=== PATIENT | female | born 1935 | race African-American/Black ===

== ENCOUNTER 2018-01-14 12:31 | Inpatient (IN) | payer OTHER, MEDICARE ==
[~2018-01-14] VITALS: Ht 149.9 cm; Wt 43.0 kg
[~2018-01-14 12:31] MED LIST: APIX5TAB PO; COMMODE 3-IN-11 MIS; FURO20TA PO; LEVA750T PO; LOSA50TA PO; OXYC-392 PO; PANT40TA3 PO; PRED20 PO; SPIR25TA PO; WALKER WHEELS/F1 MIS
[2018-01-14 12:40] VITALS: BP 123/58; PULSE 106; RESP 16; TEMP 100; O2SAT 99
[2018-01-14] MEDS ORDERED: FURO20TA PO (14:02)
[2018-01-14] MEDS ORDERED: SPIR25TA PO (14:02)
[2018-01-14] MEDS ORDERED: PRAD150C PO (14:02)
[2018-01-14] MEDS ORDERED: SULF500T3 PO (14:02)
[2018-01-14] MEDS ORDERED: PRED10 PO (14:02)
[2018-01-14] MEDS ORDERED: MYCO500T PO (14:02)
[2018-01-14] MEDS ORDERED: PANT40TA3 PO (14:10)
[2018-01-14 14:28] LABS: AUTOMATED NEUTROPHIL # 5.5 TH/MM3 (1.8-7.7); BASOPHIL % 0.7 % (0.0-2.0); HEMATOCRIT 29.4 % (35.0-46.0); LYMPH % 3.3 % (9.0-44.0); LYMPHOCYTE # 0.2 TH/MM3 (1.0-4.8); MEAN CELL VOLUME 77.2 FL (80.0-100.0); MEAN CORPUSCULAR HEMOGLOBIN 23.7 PG (27.0-34.0); MEAN CORPUSCULAR HGB CONC 30.7 % (32.0-36.0); MEAN PLATELET VOLUME 6.7 FL (7.0-11.0); MONO % 10.4 % (0.0-8.0); MONOCYTE # 0.7 TH/MM3 (0-0.9); NEUT % 85.6 % (16.0-70.0); PLATELET COUNT 488 TH/MM3 (150-450); RED BLOOD COUNT 3.81 MIL/MM3 (4.00-5.30); RED CELL DISTRIBUTION WIDTH 20.1 % (11.6-17.2); WHITE BLOOD COUNT 6.4 TH/MM3 (4.0-11.0)
[2018-01-14 14:42] LABS: ALKALINE PHOSPHATASE 59 U/L (45-117); ALT (GPT) 12 U/L (10-53); TOTAL BILIRUBIN ADULT 0.3 MG/DL (0.2-1.0); TOTAL PROTEIN 6.8 GM/DL (6.4-8.2)
[2018-01-14 14:55] LABS: AST (GOT) 14 U/L (15-37); BICARBONATE 23.7 MEQ/L (21.0-32.0); BLOOD UREA NITROGEN 15 MG/DL (7-18); CHLORIDE 104 MEQ/L (98-107); CREATININE 0.94 MG/DL (0.50-1.00); GLOMERULAR FILTRATION RATE 69 ML/MIN (>89); GLUCOSE,RANDOM 118 MG/DL (74-106); SODIUM (NA) 139 MEQ/L (136-145)
[2018-01-14] MEDS ORDERED: SODIUM CHLOR 0.9% 1000 ML INJ 1,000 ML IV SCH (14:59)
[2018-01-14] MEDS ORDERED: MAGNESIUM HYDROXIDE SUSP 30 ML CUP PO PRN (15:00)
[2018-01-14] MEDS ORDERED: BISACODYL 10 MG SUPP RECTAL PRN (15:00)
[2018-01-14] MEDS ORDERED: NALOXONE HCL 0.4 MG/ML AMP IV PUSH PRN (15:00)
[2018-01-14] MEDS ORDERED: SODIUM CHLORIDE 0.9% FLUSH 10 ML FLUSH IV FLUSH PRN (15:00)
[2018-01-14] MEDS ORDERED: LACTULOSE SYRUP 20 GM/30 ML CUP PO PRN (15:00)
[2018-01-14] MEDS ORDERED: SENNOSIDES 8.6 MG TAB PO PRN (15:00)
[2018-01-14] MEDS ORDERED: predniSONE 20 MG TAB PO ONE (15:15)
--- NOTE | 2018-01-14 16:11 | PD.RAD ---
Post CT Procedure Prog Note Pre Procedure Diagnosis: (1) Abscess Post Procedure Diagnosis: (1) Abscess Procedure Date: Jan 14, 2018 Supervising Radiologist: Aj Geiger Estimated blood loss: minimal. Anesthesia: Local Plan of Activity Patient to Unit: Other Patient Condition: Good See PACS Report for procedural detail/treatment Drainage Procedure Procedure 1 Imaging Guidance: CT Side: Left Procedure Type: Abscess Drainage [place]: 10 Drainage: Suction Fluid Removal (CCs): 30 Fluid Description: Cloudy, Other Additional Detail: cloudy brownish fluid aspirated. Plan to ER for monitoring prior to floor. Aj Geiger MD Jan 14, 2018 16:11
[2018-01-14 16:31] VITALS: BP 121/66; PULSE 74; RESP 15; O2SAT 100
[2018-01-14] MEDS: VANCOMYCIN INJ 1,000 MG in SODIUM CHLOR 0.9% 250 ML INJ 250 ML IV SCH (16:46)
[2018-01-14] MEDS: PIPERACIL-TAZO 4.5 GM PREMIX 100 ML IV SCH ×2 (16:46→22:00)
--- NOTE | 2018-01-14 16:58 | PD ---
HPI Chief Complaint: GI Complaint Time Seen by Provider: 13:52 Travel History International Travel<30 days: No Contact w/Intl Traveler<30days: No Traveled to known affect area: No History of Present Illness HPI This is a 82-year-old female with a history of pyoderma gangrenosum, colitis, hypertension, who presents today after having a CT scan done at [place] with a reported intra-abdominal abscess. Patient's been treated by her primary care doctor for diverticulitis. He started her on antibiotics and after the course, 2 days later she started expressing pain again. He started a second course and the same thing happened. The patient was sent to [place] today to have an outpatient CT scan. The CT scan showed an abscess. Patient has a intra- abdominal and extra-abdominal connecting abscess noted. The patient does have a history of ulcerative colitis. She does see Dr. Wander Jones for this. Been running low-grade fever according to family members at the bedside. There is no vomiting or diarrhea. There is no urinary symptoms. PFSH Past Medical History Arthritis: Yes (knee) Asthma: No Blood Disorders: No Cancer: No Cardiovascular Problems: No High Cholesterol: Yes COPD: No Diminished Hearing: No Endocrine: No Genitourinary: No Immune Disorder: No Kidney Stones: No Musculoskeletal: No Neurologic: No Psychiatric: No Reproductive: No Respiratory: No Renal Failure: No Sleep Apnea: No ?: Not Past Surgical History Abdominal Surgery: No Cardiac Surgery: No Ear Surgery: No Endocrine Surgery: No Eye Surgery: No Genitourinary Surgery: No Gynecologic Surgery: No Oral Surgery: No Thoracic Surgery: No Other Surgery: Yes (r hip surgery about 10 years ago) Family History Family Hypercholesterolemia: Yes Social History Alcohol Use: No Tobacco Use: No Substance Use: No Allergies-Medications (Allergen,Severity, Reaction): Coded Allergies: No Known Allergies (Verified , 07/02/16) Reported Meds & Prescriptions Reported Meds & Active Scripts Active Reported Pantoprazole (Pantoprazole Sodium) 40 Mg Tab 40 Mg PO DAILY Furosemide 20 Mg Tab 20 Mg PO 3X WEEKLY Spironolactone 25 Mg Tab 25 Mg PO 3X WEEKLY Prednisone 10 Mg Tab 10 Mg PO DAILY Pradaxa (Dabigatran) 150 Mg Cap 150 Mg PO BID Sulfasalazine 500 Mg Tab 1,000 Mg PO BID Mycophenolate (Mycophenolate Mofetil) 500 Mg Tab 1,000 Mg PO BID Review of Systems Except as stated in HPI: all other systems reviewed are Neg General / Constitutional: Positive: Fever, No: Chills (Low-grade) HENT: No: Headaches, Neck Pain Cardiovascular: No: Chest Pain or Discomfort, Palpitations Respiratory: No: Cough, Shortness of Breath Gastrointestinal: Positive: Nausea, Abdominal Pain, No: Vomiting, Diarrhea Genitourinary: No: Frequency, Dysuria Musculoskeletal: No: Weakness, Pain Neurologic: No: Weakness, Dizziness, Headache Physical Exam Narrative GENERAL: Well-developed well-nourished female in no acute respiratory distress. SKIN: Focused skin assessment warm/dry. HEAD: Atraumatic. Normocephalic. EYES: Pupils equal and round. No scleral icterus. No injection or drainage. ENT: No nasal bleeding or discharge. Mucous membranes pink and moist. NECK: Trachea midline. Supple. CARDIOVASCULAR: Regular rate and rhythm. No murmur appreciated. RESPIRATORY: No accessory muscle use. Clear to auscultation. Breath sounds equal bilaterally. GASTROINTESTINAL: Abdomen soft, nondistended. There is tenderness in the left middle abdomen. There is no rebound or guarding. There is palpable fullness in the left middle abdomen. This is likely the extra-abdominal portion of the abscess. MUSCULOSKELETAL: No obvious deformities. No clubbing. No cyanosis. No edema. NEUROLOGICAL: Awake and alert. No obvious cranial nerve deficits. Motor grossly within normal limits. Normal speech. Data Data Last Documented VS Vital Signs Date Time Temp Pulse Resp B/P (MAP) Pulse Ox O2 Delivery O2 Flow Rate FiO2 01/14/18 16:31 74 15 121/66 (84) 100 Room Air 01/14/18 12:40 100.0 Orders Orders Complete Blood Count With Diff (01/14/18 13:03) Comprehensive Metabolic Panel (01/14/18 13:03) Urinalysis - C+S If Indicated (01/14/18 13:03) Iv Access Insert/Monitor (01/14/18 13:03) Oxygen Administration (01/14/18 13:03) Oximetry (01/14/18 13:03) Lipase (01/14/18 13:03) Blood Culture (01/14/18 13:33) Lactic Acid Sepsis Protocol (01/14/18 13:33) Ct Assisted Abscess Drain (01/14/18 ) Consult Colorectal Surgery (01/14/18 ) Piperacil-Tazo 4.5 Gm Premix (Zosyn 4.5 (01/14/18 15:00) Vancomycin Inj (Vancomycin Inj) (01/14/18 16:00) Place In Observation (01/14/18 ) Vital Signs (Adult) Q4H (01/14/18 14:59) Activity Oob With Assistance (01/14/18 14:59) Intake + Output PRINCESS.QSHIFT (01/14/18 14:59) Diet Npo (01/14/18 Dinner) Sodium Chlor 0.9% 1000 Ml Inj (Ns 1000 M (01/14/18 14:59) Sodium Chloride 0.9% Flush (Ns Flush) (01/14/18 15:00) Sodium Chloride 0.9% Flush (Ns Flush) (01/14/18 21:00) Comprehensive Metabolic Panel (01/15/18 06:00) Complete Blood Count With Diff (01/15/18 06:00) Pt Request For Service (01/14/18 14:59) Case Management Consult (01/14/18 14:59) Naloxone Inj (Narcan Inj) (01/14/18 15:00) Magnesium Hydroxide Liq (Milk Of Magnesi (01/14/18 15:00) Sennosides (Senokot) (01/14/18 15:00) Bisacodyl Supp (Dulcolax Supp) (01/14/18 15:00) Lactulose Liq (Lactulose Liq) (01/14/18 15:00) Consult Infectious Disease (01/14/18 ) Cortisol (01/14/18 15:02) Prednisone (Deltasone) (01/14/18 15:15) Prednisone (Deltasone) (01/15/18 09:00) Mycophenolate Mofetil (Cellcept) (01/14/18 21:00) Pantoprazole (Protonix) (01/15/18 09:00) Sulfasalazine (Azulfidine) (01/14/18 21:00) (Hub Use Only)Inp Phy Cons/Ref (01/14/18 ) Fentanyl Inj (Fentanyl Inj) (01/14/18 15:50) (Hub Use Only)Inp Phy Cons/Ref (01/14/18 16:05) Vital Signs (Adult) Q15MX2 (01/14/18 16:08) Notify Radiology (01/14/18 16:08) Notify Parameters (01/14/18 16:08) Vital Signs (Adult) Q15MX2,Q30MX2 (01/14/18 16:08) Intake + Output PRINCESS.QSHIFT (01/14/18 16:08) Notify Radiology (01/14/18 16:08) Wound Culture And Gram Stain (01/14/18 16:11) Admit Order (Ed Use Only) (01/14/18 16:42) Labs Laboratory Tests Test 01/14/18 14:00 White Blood Count 6.4 TH/MM3 Red Blood Count 3.81 MIL/MM3 Hemoglobin 9.0 GM/DL Hematocrit 29.4 % Mean Corpuscular Volume 77.2 FL Mean Corpuscular Hemoglobin 23.7 PG Mean Corpuscular Hemoglobin Concent 30.7 % Red Cell Distribution Width 20.1 % Platelet Count 488 TH/MM3 Mean Platelet Volume 6.7 FL Neutrophils (%) (Auto) 85.6 % Lymphocytes (%) (Auto) 3.3 % Monocytes (%) (Auto) 10.4 % Eosinophils (%) (Auto) 0.0 % Basophils (%) (Auto) 0.7 % Neutrophils # (Auto) 5.5 TH/MM3 Lymphocytes # (Auto) 0.2 TH/MM3 Monocytes # (Auto) 0.7 TH/MM3 Eosinophils # (Auto) 0.0 TH/MM3 Basophils # (Auto) 0.0 TH/MM3 CBC Comment DIFF FINAL Differential Comment Blood Urea Nitrogen 15 MG/DL Creatinine 0.94 MG/DL Random Glucose 118 MG/DL Total Protein 6.8 GM/DL Albumin 3.0 GM/DL Calcium Level 9.0 MG/DL Alkaline Phosphatase 59 U/L Aspartate Amino Transf (AST/SGOT) 14 U/L Alanine Aminotransferase (ALT/SGPT) 12 U/L Total Bilirubin 0.3 MG/DL Sodium Level 139 MEQ/L Potassium Level 3.7 MEQ/L Chloride Level 104 MEQ/L Carbon Dioxide Level 23.7 MEQ/L Anion Gap 11 MEQ/L Estimat Glomerular Filtration Rate 69 ML/MIN Lactic Acid Level 1.8 mmol/L Lipase 171 U/L MDM Medical Decision Making Medical Screen Exam Complete: Yes Emergency Medical Condition: Yes Differential Diagnosis Enteric extra-abdominal abscess/fistula versus diverticular abscess versus Crohn 's exacerbation. Narrative Course 82-year-old female with history Crohn's disease, pyoderma gangrenosum, who presents after having an outpatient CT that showed an intra-abdominal abscess. Patient actually has a communicating abscess from the intra-abdominal to extra- abdominal abdominal wall. Patient has been treated twice with outpatient antibiotic course however has had worsening pain shortly after each course. The abscess has been drained by interventional radiology. The patient will be admitted for IV antibiotics and fluids. Case was discussed with Dr. Sharath Bright, [facility], who will admit the patient to his service. Dr. Wander Harrell, patient's colorectal surgeon, has also been consulted and will see the patient in consultation. Diagnosis Primary Impression: Intra-abdominal abscess Additional Impressions: Pyoderma gangrenosum Hypertension Admitting Information Admitting Physician Requests: Admit Faisal Sánchez MD Jan 14, 2018 16:58
[2018-01-14 18:00] VITALS: BP 116/62; PULSE 68; RESP 17; O2SAT 100
--- NOTE | 2018-01-14 18:44 | HHI.HP ---
[facility] Genet Mcgraw MD Admission Diagnosis enteric -superficial abscess, colititis Diagnoses: Chief Complaint: Left lower quadrant pain Travel History International Travel<30 Days: No Contact w/Intl Traveler <30 Da: No Traveled to Known Affected Are: No History of Present Illness 82-year-old female with a history of pyoderma gangrenosum, ulcerative colitis who presents with a 24 day history of worsening intermittent sharp nonradiating left lower quadrant pain. Patient has been treated with 2 separate 10 day courses of ciprofloxacin with initial improvement however subsequent worsening. Patient experienced nausea yesterday without vomiting. She says she has not felt feverish, however has low-grade temperature upon presentation. Imaging performed today shows left lower quadrant subcutaneous and intra-abdominal abscess. Patient is currently status post IR drainage with drain the left lower quadrant subcutaneous abscess. Patient follows with Dr. Harrell as outpatient for ulcerative colitis. Review of Systems Except as stated in HPI: all other systems reviewed are Neg Past Family Social History Past Medical History Deep vein thrombosis Pyoderma gangrenosum status post healed ulcer of left leg Diverticulitis Ulcerative colitis Venous insufficiency Past Surgical History Ganglion cyst dorsum of right hand. Right hip replacement 2007 Colonoscopy in 2016 Reported Medications Reported Meds & Active Scripts Active Reported Pantoprazole (Pantoprazole Sodium) 40 Mg Tab 40 Mg PO DAILY Furosemide 20 Mg Tab 20 Mg PO 3X WEEKLY Spironolactone 25 Mg Tab 25 Mg PO 3X WEEKLY Prednisone 10 Mg Tab 10 Mg PO DAILY Pradaxa (Dabigatran) 150 Mg Cap 150 Mg PO BID Sulfasalazine 500 Mg Tab 1,000 Mg PO BID Mycophenolate (Mycophenolate Mofetil) 500 Mg Tab 1,000 Mg PO BID Allergies: Coded Allergies: No Known Allergies (Verified , 07/02/16) Family History Brother age 60 secondary to liver disease. Sister of breast cancer. Father secondary to CVA. Mother at age 99. Social History Non-smoker. Patient drinks about 2 drinks per day. Denies any issues with alcohol abuse. Denies any history of withdrawal. Denies any illicit drugs. Physical Exam Vital Signs Vital Signs Date Time Temp Pulse Resp B/P (MAP) Pulse Ox O2 Delivery O2 Flow Rate FiO2 01/14/18 18:00 68 17 116/62 (80) 100 01/14/18 16:31 74 15 121/66 (84) 100 Room Air 01/14/18 12:40 100.0 106 16 123/58 (79) 99 Physical Exam GENERAL: This is a well-nourished, well-developed patient, in no apparent distress. Alert and oriented 3 SKIN: No rashes, ecchymoses or lesions. Cool and dry. HEAD: Atraumatic. Normocephalic. No temporal or scalp tenderness. EYES: Pupils equal round and reactive. Extraocular motions intact. No scleral icterus. No injection or drainage. ENT: Nose without bleeding, purulent drainage or septal hematoma. Throat without erythema, tonsillar hypertrophy or exudate. Uvula midline. Airway patent. NECK: Trachea midline. No JVD or lymphadenopathy. Supple, nontender, no meningeal signs. CARDIOVASCULAR: Regular rate and rhythm without murmurs, gallops, or rubs. RESPIRATORY: Clear to auscultation. Breath sounds equal bilaterally. No wheezes , rales, or rhonchi. GASTROINTESTINAL: Abdomen soft, non-tender, nondistended. Left lower quadrant with drain in place. Otherwise no hepato-splenomegaly, or palpable masses. No guarding. MUSCULOSKELETAL: Extremities without clubbing, cyanosis, or edema. No joint tenderness, effusion, or edema noted. Bilateral socks are on, translucent, no broken skin. No calf tenderness. Negative Homans sign bilaterally. NEUROLOGICAL: Awake and alert. Cranial nerves II through XII intact. Motor and sensory grossly within normal limits. Five out of 5 muscle strength in all muscle groups. Normal speech. Laboratory Laboratory Tests Test 01/14/18 14:00 01/14/18 18:03 White Blood Count 6.4 Red Blood Count 3.81 Hemoglobin 9.0 Hematocrit 29.4 Mean Corpuscular Volume 77.2 Mean Corpuscular Hemoglobin 23.7 Mean Corpuscular Hemoglobin Concent 30.7 Red Cell Distribution Width 20.1 Platelet Count 488 Mean Platelet Volume 6.7 Neutrophils (%) (Auto) 85.6 Lymphocytes (%) (Auto) 3.3 Monocytes (%) (Auto) 10.4 Eosinophils (%) (Auto) 0.0 Basophils (%) (Auto) 0.7 Neutrophils # (Auto) 5.5 Lymphocytes # (Auto) 0.2 Monocytes # (Auto) 0.7 Eosinophils # (Auto) 0.0 Basophils # (Auto) 0.0 CBC Comment DIFF FINAL Differential Comment Blood Urea Nitrogen 15 Creatinine 0.94 Random Glucose 118 Total Protein 6.8 Albumin 3.0 Calcium Level 9.0 Alkaline Phosphatase 59 Aspartate Amino Transf (AST/SGOT) 14 Alanine Aminotransferase (ALT/SGPT) 12 Total Bilirubin 0.3 Sodium Level 139 Potassium Level 3.7 Chloride Level 104 Carbon Dioxide Level 23.7 Anion Gap 11 Estimat Glomerular Filtration Rate 69 Lactic Acid Level 1.8 Lipase 171 Date/Time Source Procedure Growth Status 01/14/18 14:00 Blood Peripheral Aerobic Blood Culture Pending Received 01/14/18 14:00 Blood Peripheral Anaerobic Blood Culture Pending Received 01/14/18 16:00 Wound Other Gram Stain Pending Received 01/14/18 16:00 Wound Other Wound Culture Pending Received Result Diagram: 01/14/18 1400 01/14/18 1400 Caprinskylar VTE Risk Assessment Caprini VTE Risk Assessment: Mod/High Risk (score >= 2) Caprini Risk Assessment Model Point Value = 1 Point Value = 2 Point Value = 3 Point Value = 5 Age 41-60 Minor surgery BMI > 25 kg/m2 Swollen legs Varicose veins or History of unexplained or recurrent spontaneous Oral contraceptives or hormone replacement Sepsis (< 1 month) Serious lung disease, including pneumonia (< 1 month) Abnormal pulmonary function Acute myocardial infarction Congestive heart failure (< 1 month) History of inflammatory bowel disease Medical patient at bed rest Age 61-74 Arthroscopic surgery Major open surgery (> 45 min) Laparoscopic surgery (> 45 min) Malignancy Confined to bed (> 72 hours) Immobilizing plaster cast Central venous access Age >= 75 History of VTE Family history of VTE Factor V Leiden Prothrombin [id number] Lupus anticoagulant Anticardiolipin antibodies Elevated serum homocysteine Heparin-induced thrombocytopenia Other congenital or acquired thrombophilia Stroke (< 1 month) Elective arthroplasty Hip, pelvis, or leg fracture Acute spinal cord injury (< 1 month) Prophylaxis Regimen Total Risk Factor Score Risk Level Prophylaxis Regimen 0-1 Low Early ambulation 2 Moderate Order ONE of the following: *Sequential Compression Device (SCD) *Heparin 5000 units SQ BID 3-4 Higher Order ONE of the following medications: *Heparin 5000 units SQ TID *Enoxaparin/Lovenox 40 mg SQ daily (WT < 150 kg, CrCl > 30 mL/min) *Enoxaparin/Lovenox 30 mg SQ daily (WT < 150 kg, CrCl > 10-29 mL/min) *Enoxaparin/Lovenox 30 mg SQ BID (WT < 150 kg, CrCl > 30 mL/min) AND/OR *Sequential Compression Device (SCD) 5 or more Highest Order ONE of the following medications: *Heparin 5000 units SQ TID (Preferred with Epidurals) *Enoxaparin/Lovenox 40 mg SQ daily (WT < 150 kg, CrCl > 30 mL/min) *Enoxaparin/Lovenox 30 mg SQ daily (WT < 150 kg, CrCl > 10-29 mL/min) *Enoxaparin/Lovenox 30 mg SQ BID (WT < 150 kg, CrCl > 30 mL/min) AND *Sequential Compression Device (SCD) Assessment and Plan Assessment and Plan //Left lower quadrant abscess, both intra-abdominal and subcutaneous //Suspected sepsis = Temperature of 100.0, heart rate 106, left lower quadrant abscess. = Outside imaging requested to be uploaded to system = IR drainage on admission. Cultures pending. Broad-spectrum antibiotics appreciate IR assistance. Colorectal surgery consult pending. Appreciate assistance. //History of ulcerative colitis //History of pyoderma gangrenosum -Patient follows with Dr. Harrell for UC, Dr. Hooker for pyoderma gangrenosum. Continue sulfasalazine. ESR is pending. Continue mycophenolate mofetil for now. //History of venous insufficiency. Echocardiogram 2015 with normal ejection fraction. Patient is on Spironolactone and Lasix several times weekly at home. We will hold off on diuretics and monitor. //History of DVT. On Pradaxa. = Follows with Dr. Mcadams as outpatient. Consider consult if necessary = Hold Pradaxa = We will start on heparin drip due to need for possible procedure. //Chronic anemia. Likely secondary to chronic inflammation. Hemoglobin 9.0. No signs of bleeding. Continue to monitor. //Suspected adrenal insufficiency due to chronic steroid use. Will start on prednisone 20 mg daily. Discussed Condition With Patient, nurse, ED physician, both daughters at bedside Physician Certification 2 Midnight Certification Type: Admission for Inpatient Services Order for Inpatient Services The services are ordered in accordance with Medicare regulations or non- Medicare payer requirements, as applicable. In the case of services not specified as inpatient-only, they are appropriately provided as inpatient services in accordance with the 2-midnight benchmark. Estimated LOS (days): 3 days is the estimated time the patient will need to remain in the hospital, assuming treatment plan goals are met and no additional complications. Post-Hospital Plan: Not yet determined Sharath Bright MD Jan 14, 2018 18:44
[2018-01-14 20:29] VITALS: BP 119/67; PULSE 72; RESP 16; TEMP 99; O2SAT 100
[2018-01-14 20:41] LABS: HEMATOCRIT 29.7 % (35.0-46.0); MEAN CELL VOLUME 77.4 FL (80.0-100.0); MEAN CORPUSCULAR HEMOGLOBIN 23.4 PG (27.0-34.0); MEAN CORPUSCULAR HGB CONC 30.3 % (32.0-36.0); MEAN PLATELET VOLUME 6.7 FL (7.0-11.0); PLATELET COUNT 450 TH/MM3 (150-450); RED BLOOD COUNT 3.84 MIL/MM3 (4.00-5.30); RED CELL DISTRIBUTION WIDTH 19.9 % (11.6-17.2); WHITE BLOOD COUNT 6.3 TH/MM3 (4.0-11.0)
[2018-01-14] MEDS: SODIUM CHLORIDE 0.9% FLUSH 10 ML FLUSH IV FLUSH SCH (21:00)
[2018-01-14] MEDS: sulfaSALAzine 500 MG TAB PO SCH (22:00)
[2018-01-14] MEDS: MYCOPHENOLATE MOFETIL 500 MG TAB PO SCH (22:01)
[2018-01-14 22:59] LABS: INTERNATIONAL NORMALIZED RATIO 1.1 RATIO; PROTHROMBIN TIME - PATIENT 10.8 SEC (9.8-11.6)
[2018-01-14] MEDS: HEPARIN-D5W 25,000 U/250 ML 250 ML IV PRN (23:27)
[2018-01-15 00:13] VITALS: BP 113/58; PULSE 72; RESP 18; TEMP 97.5; O2SAT 99
[2018-01-15] MEDS: PIPERACIL-TAZO 4.5 GM PREMIX 100 ML IV SCH (03:00)
[2018-01-15] MEDS: VANCOMYCIN INJ 1,000 MG in SODIUM CHLOR 0.9% 250 ML INJ 250 ML IV SCH ×2 (03:04→16:34)
[2018-01-15 03:46] LABS: AMORPHOUS SEDIMENT, URINE RARE; BILIRUBIN, URINE NEG (NEG); BLOOD, URINE NEG (NEG); GLUCOSE,URINE NEG (NEG); KETONE, URINE TRACE mg/dL (NEG); NITRITE,URINE NEG (NEG); RENAL EPITHELIAL CELLS <1 /hpf; SQUAMOUS EPITHELIAL CELL URINE 5 /hpf (0-5); TRANSITIONAL EPI CELLS, URINE <1 /hpf; URINE COLOR YELLOW (YELLW/STRAW); URINE LEUKOCYTE ESTERASE NEG (NEG)
[2018-01-15 05:47] LABS: AUTOMATED NEUTROPHIL # 3.1 TH/MM3 (1.8-7.7); BASOPHIL % 0.5 % (0.0-2.0); EOSINOPHIL % 0.1 % (0.0-4.0); HEMATOCRIT 29.2 % (35.0-46.0); LYMPH % 19.6 % (9.0-44.0); LYMPHOCYTE # 0.9 TH/MM3 (1.0-4.8); MEAN CELL VOLUME 77.7 FL (80.0-100.0); MEAN CORPUSCULAR HEMOGLOBIN 23.9 PG (27.0-34.0); MEAN CORPUSCULAR HGB CONC 30.7 % (32.0-36.0); MEAN PLATELET VOLUME 6.9 FL (7.0-11.0); MONO % 14.7 % (0.0-8.0); MONOCYTE # 0.7 TH/MM3 (0-0.9); NEUT % 65.1 % (16.0-70.0); PLATELET COUNT 429 TH/MM3 (150-450); RED BLOOD COUNT 3.76 MIL/MM3 (4.00-5.30); WHITE BLOOD COUNT 4.7 TH/MM3 (4.0-11.0)
[2018-01-15 05:55] LABS: ALBUMIN 2.5 GM/DL (3.4-5.0); AST (GOT) 9 U/L (15-37); BICARBONATE 23.5 MEQ/L (21.0-32.0); BLOOD UREA NITROGEN 16 MG/DL (7-18); CALCIUM 8.9 MG/DL (8.5-10.1); CHLORIDE 104 MEQ/L (98-107); CREATININE 1.08 MG/DL (0.50-1.00); GLOMERULAR FILTRATION RATE 59 ML/MIN (>89); GLUCOSE,RANDOM 94 MG/DL (74-106); SODIUM (NA) 139 MEQ/L (136-145)
[2018-01-15 06:01] LABS: ALKALINE PHOSPHATASE 58 U/L (45-117); ALT (GPT) 10 U/L (10-53); TOTAL BILIRUBIN ADULT 0.2 MG/DL (0.2-1.0); TOTAL PROTEIN 6.3 GM/DL (6.4-8.2)
[2018-01-15 08:00] VITALS: BP 145/65; PULSE 74; RESP 18; TEMP 98.5; O2SAT 100
[2018-01-15] MEDS: SODIUM CHLORIDE 0.9% FLUSH 10 ML FLUSH IV FLUSH SCH ×2 (09:00→21:00)
[2018-01-15] MEDS: MYCOPHENOLATE MOFETIL 500 MG TAB PO SCH ×2 (09:23→21:20)
[2018-01-15] MEDS: sulfaSALAzine 500 MG TAB PO SCH ×2 (09:23→21:19)
[2018-01-15] MEDS: PANTOPRAZOLE SOD 40 MG DELAYED RELEASE TAB PO SCH (09:24)
[2018-01-15] MEDS: predniSONE 20 MG TAB PO SCH (09:24)
[2018-01-15] MEDS: ACETAMINOPHEN 325 MG TAB PO PRN ×3 (09:24→18:13)
[2018-01-15] MEDS: PIPERACIL-TAZO 2.25 GM PREMIX 50 ML IV SCH ×3 (09:32→21:20)
--- NOTE | 2018-01-15 09:43 | MB ---
cc: Aj Harrell MD, Sharath Bright MD DATE: 01/15/2018 CHIEF COMPLAINT: Left lower quadrant abdominal and subcutaneous abscess. 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 She has had bouts of pyoderma gangrenosum treated by Dr. Hooker in the past. Her legs are cleared at this point. She has not seen me for a couple of years. She has been on Azulfidine and has been in relatively good health until a couple weeks ago, she developed left lower quadrant pain. She went to Dr. Mcgraw, who gave her some Cipro 500 mg p.o. b.i.d. for about a week or so, and then she felt good for a time and then several days later, he put her on another round of Cipro. She began having more in the way of abdominal pain. After that, he got a CT scan on her yesterday at [place] showing what appeared to be an intra-abdominal and abdominal abscess. It is not certain whether this is connecting to the colon or this is indeed diverticulitis or flare-up of her ulcerative colitis or if she has a colocutaneous fistula forming. Nevertheless, she underwent subcutaneous drainage last evening, but because of her anticoagulation, they did not do abdominal drainage. Her anticoagulation was stopped and she was placed on a heparin drip in anticipation of further drainage. PAST MEDICAL HISTORY: As above. FAMILY HISTORY: As above. SOCIAL HISTORY: As above. REVIEW OF SYSTEMS: As above. PHYSICAL EXAMINATION: GENERAL: A well-developed, thin female in no acute distress. SKIN: Warm and dry. HEENT: Extraocular muscles intact. NECK: Supple. ABDOMEN: Soft, mildly tender in the left lower quadrant. She has a drain in the left lower quadrant and there is some brownish drainage coming from that drain, but not a very large amount. It does not appear to be stool. RECTAL: Exam was not done. EXTREMITIES: Range of motion within normal limits. NEUROLOGIC: Grossly normal. SKIN: She does not have any evidence of pyoderma gangrenosum on her legs. IMPRESSION: Intra-abdominal and subcutaneous abscess. PLAN: Further drainage of this abscess with followup CT on Wednesday. I will continue to follow along with you. At this point, I would continue her present therapy with antibiotics and drainage. MD CORI Ziegler/BELINDA , 08:57 AM , 09:42 AM
--- NOTE | 2018-01-15 10:29 | HHI.PR ---
Subjective Remarks Patient seen and examined this morning, their vitals are stable and the patient is afebrile. Reports she feels well. Still with some intermittent lower abdominal pain. She is tolerating her soft diet without any issues. She denies nausea or vomiting. Daughter is at bedside. Objective Vital Signs Date Time Temp Pulse Resp B/P (MAP) Pulse Ox O2 Delivery O2 Flow Rate FiO2 01/15/18 08:00 98.5 74 18 145/65 (91) 100 01/15/18 00:13 97.5 72 18 113/58 (76) 99 01/14/18 20:29 99.0 72 16 119/67 (84) 100 01/14/18 18:34 01/14/18 18:00 68 17 116/62 (80) 100 01/14/18 16:31 74 15 121/66 (84) 100 Room Air 01/14/18 12:40 100.0 106 16 123/58 (79) 99 I/O 01/14/18 01/14/18 01/14/18 01/15/18 01/15/18 01/15/18 07:00 15:00 23:00 07:00 15:00 23:00 Intake Total 480 ml Output Total 100 ml 45 ml Balance -100 ml 435 ml Intake Oral 480 ml Output Urine Total 100 ml Drainage Total 45 ml # Voids 2 Result Diagram: 01/15/1843301/15/18 043 Objective Remarks GENERAL: Well-appearing, no acute distress, sitting up in chair SKIN: Warm and dry. HEAD: Normocephalic. EYES: No scleral icterus. No injection or drainage. NECK: Supple, trachea midline. No JVD or lymphadenopathy. CARDIOVASCULAR: Regular rate and rhythm without murmurs, gallops, or rubs. RESPIRATORY: Breath sounds equal bilaterally. No accessory muscle use. GASTROINTESTINAL: Abdomen soft, nondistended. Left lower quadrant drain in place. There is tenderness to palpation of left lower quadrant, but overall abdominal exam is improved from previous. MUSCULOSKELETAL: No cyanosis, or edema. A/P Problem List: (1) Hypertension ICD Code: I10 - Essential (primary) hypertension Status: Chronic (2) Pyoderma gangrenosum ICD Code: L88 - Pyoderma gangrenosum Status: Chronic (3) Intra-abdominal abscess ICD Code: K65.1 - Peritoneal abscess Status: Acute Assessment and Plan In summary this is an 82-year-old female patient with a history of pyoderma gangrenosum, ulcerative colitis who presented to [facility] ED with several day history of nonradiating left lower quadrant pain. The patient been recently treated with Cipro on 2 separate occasions with minimal improvement of symptoms. In the ED imaging showed left lower quadrant subcutaneous and intra- abdominal abscess. Patient underwent IR drainage with drain placement. Left lower quadrant abscess Met sepsis criteria on admission, currently no leukocytosis (patient is on steroids so immunoresponse may be blunted) she is afebrile and lactic acid is 1.8 Colorectal surgery consulted: Follow-up CT scheduled for Wednesday. Continue drain placed by interventional radiology. Continue broad-spectrum antibiotics with Zosyn and vancomycin Ulcerative colitis Pyoderma gangrenosum Continue sulfazine, continue mycophenolate History of venous insufficiency Echo in 2016 with normal EF Patient's Lasix and spironolactone are currently on hold History of DVT Is on Pradaxa as an outpatient, this was placed on hold Patient is currently on heparin drip if patient needs a potential procedure Chronic anemia No signs of bleeding at this time Hemoglobin is stable Suspected adrenal insufficiency due to chronic steroid use Continue prednisone 20 mg daily Discharge Planning Clinically improving, to be reevaluated on Wednesday after surgery. Bettina Gunn MD Jan 15, 2018 10:29
[2018-01-15 12:00] VITALS: BP 126/59; PULSE 67; RESP 19; TEMP 98.1; O2SAT 100
[2018-01-15 16:00] VITALS: BP 123/61; PULSE 72; RESP 18; TEMP 97.9; O2SAT 100
[2018-01-15 20:00] VITALS: BP 125/67; PULSE 70; RESP 18; TEMP 98; O2SAT 100
--- NOTE | 2018-01-15 21:51 | PD.ID.CON ---
History of Present Illness Service ID Consult Requested By Dr Bright Reason for Consult intraabd abscess Primary Care Physician Genet Mcgraw MD Diagnoses: History of Present Illness 82 yo female kn[place]own to me from previous hospitalisation > 1 year ago she has a h/o ulerative colitis and pyoderma gangrenosum She is immunosuppresse, on 10 mg of Prednisone and mycofenilc acid She developped LLQ painx 1 day She got o/p CT that showed LLQ abbscess, it was drained yday G stain with mixed gram-neg and gram positive arnaldo; clx P Pt had fever of 100.0 F on presentation and no leukocytosis Review of Systems Except as stated in HPI: all other systems reviewed are Neg Past Family Social History Allergies: Coded Allergies: No Known Allergies (Verified , 07/02/16) Past Medical History cerative colitis Venous insufficiency Past Surgical History Ganglion cyst dorsum of right hand. Right hip replacement 2006 Colonoscopy in 2015 Active Ordered Medications Medications where reviewed in EMR Antibiotics Include: zosyn vancomycin Family History Brother age 60 secondary to liver disease. Sister of breast cancer. Father secondary to CVA. Mother at age 99. Social History Non-smoker. Patient drinks about 2 drinks per day. Denies any issues with alcohol abuse. Denies any history of withdrawal. Denies any illicit drugs. Physical Exam Vital Signs Vital Signs Date Time Temp Pulse Resp B/P (MAP) Pulse Ox O2 Delivery O2 Flow Rate FiO2 01/15/18 21:27 20 01/15/18 20:00 98.0 70 18 125/67 (86) 100 01/15/18 16:00 97.9 72 18 123/61 (81) 100 01/15/18 12:00 98.1 67 19 126/59 (81) 100 01/15/18 08:00 98.5 74 18 145/65 (91) 100 01/15/18 00:13 97.5 72 18 113/58 (76) 99 Physical Exam CONSTITUTIONAL/GENERAL: This is a thin elderly female patient, in no apparent distress. TUBES/LINES/DRAINS: SKIN: No jaundice, rashes, or lesions. Scars intensive on BLE Ecchymoses on upper extremities. No wounds seen anteriorly. Skin temperature appropriate. Not diaphoretic. HEAD: Atraumatic. Normocephalic. EYES: Pupils equal and round and reactive. Extraocular motions intact. No scleral icterus. No injection or drainage. Fundi not examined. ENT: Hearing grossly normal. Nose without bleeding or purulent drainage. Throat without visible erythema, exudates, masses, or lesions. NECK: Trachea midline. Supple, nontender. No palpable thyroid enlargement or nodularity. CARDIOVASCULAR: Regular rate and rhythm without murmurs, gallops, or rubs. No JVD. Peripheral pulses symmetric. RESPIRATORY/CHEST: Symmetric, unlabored respirations. Clear to auscultation. Breath sounds equal bilaterally. No wheezes, rales, or rhonchi. GASTROINTESTINAL: Abdomen soft, non-tender, nondistended. No hepato-splenomegaly , or palpable masses. No guarding. Bowel sounds present. Drain in place LLQ area with purulent d/c GENITOURINARY: Without palpable bladder distension. MUSCULOSKELETAL: Extremities without clubbing, cyanosis, or edema. No joint tenderness or effusion noted. No calf tenderness. No mottling or clubbing. LYMPHATICS: No palpable cervical or supraclavicular adenopathy. NEUROLOGICAL: Awake and alert. Motor and sensory grossly within normal limits. Follows commands. Clear speech. Moves all extremities. PSYCHIATRIC: No obvious anxiety/depression. no apparent hallucinations or other psychotic thought process. Laboratory Laboratory Tests Test 01/14/18 22:00 01/15/18 03:13 01/15/18 04:34 01/15/18 11:44 Prothrombin Time 10.8 Prothromb Time International Ratio 1.1 Activated Partial Thromboplast Time 29.2 29.2 25.5 Urine Color YELLOW Urine Turbidity HAZY Urine pH 6.0 Urine Specific [place] GREATER THAN 1.050 Urine Protein 30 Urine Glucose (UA) NEG Urine Ketones TRACE Urine Occult Blood NEG Urine Nitrite NEG Urine Bilirubin NEG Urine Urobilinogen LESS THAN 2.0 Urine Leukocyte Esterase NEG Urine RBC 1 Urine WBC 1 Urine Squamous Epithelial Cells 5 Urine Transitional Epithelial Cells <1 Urine Renal Epithelial Cells <1 Urine Amorphous Sediment RARE Microscopic Urinalysis Comment CULT NOT INDICATED White Blood Count 4.7 Red Blood Count 3.76 Hemoglobin 9.0 Hematocrit 29.2 Mean Corpuscular Volume 77.7 Mean Corpuscular Hemoglobin 23.9 Mean Corpuscular Hemoglobin Concent 30.7 Red Cell Distribution Width 20.0 Platelet Count 429 Mean Platelet Volume 6.9 Neutrophils (%) (Auto) 65.1 Lymphocytes (%) (Auto) 19.6 Monocytes (%) (Auto) 14.7 Eosinophils (%) (Auto) 0.1 Basophils (%) (Auto) 0.5 Neutrophils # (Auto) 3.1 Lymphocytes # (Auto) 0.9 Monocytes # (Auto) 0.7 Eosinophils # (Auto) 0.0 Basophils # (Auto) 0.0 CBC Comment DIFF FINAL Differential Comment Blood Urea Nitrogen 16 Creatinine 1.08 Random Glucose 94 Total Protein 6.3 Albumin 2.5 Calcium Level 8.9 Alkaline Phosphatase 58 Aspartate Amino Transf (AST/SGOT) 9 Alanine Aminotransferase (ALT/SGPT) 10 Total Bilirubin 0.2 Sodium Level 139 Potassium Level 3.6 Chloride Level 104 Carbon Dioxide Level 23.5 Anion Gap 12 Estimat Glomerular Filtration Rate 59 Test 01/15/18 17:51 Activated Partial Thromboplast Time 33.8 Date/Time Source Procedure Growth Status 01/14/18 14:00 Blood Peripheral Aerobic Blood Culture - Preliminary NO GROWTH IN 1 DAY Resulted 01/14/18 14:00 Blood Peripheral Anaerobic Blood Culture - Preliminary NO GROWTH IN 1 DAY Resulted 01/15/18 11:00 Stool Stool Stool Occult Blood (MAGALIE) - Final HEMOCCULT POSITIVE Complete 01/14/18 16:00 Wound Other Gram Stain - Final Resulted 01/14/18 16:00 Wound Other Wound Culture - Preliminary Resulted Result Diagram: 01/15/184 01/15/18433 Assessment and Plan Assessment and Plan Intraabdominal abscess, sp IR drainage Ulcerative colitis cont broad spectrum abx will follow clx Justa Zavaleta MD Jan 15, 2018 21:51
[2018-01-16] VITALS: BP 153/73; PULSE 65; RESP 18; TEMP 97.5; O2SAT 100
[2018-01-16] MEDS: HEPARIN-D5W 25,000 U/250 ML 250 ML IV PRN (02:17)
[2018-01-16] MEDS: PIPERACIL-TAZO 2.25 GM PREMIX 50 ML IV SCH ×4 (02:22→20:30)
[2018-01-16] MEDS: ACETAMINOPHEN 325 MG TAB PO PRN ×3 (02:28→20:34)
[2018-01-16] MEDS: VANCOMYCIN INJ 1,000 MG in SODIUM CHLOR 0.9% 250 ML INJ 250 ML IV SCH (04:47)
--- NOTE | 2018-01-16 07:49 | HHI.PR ---
Subjective Remarks Patient seen and examined this morning, their vitals are stable and the patient is afebrile. Reports diarrhea twice this am. Denies CP or SOB. Wants to get up and walk. Objective Vital Signs Date Time Temp Pulse Resp B/P (MAP) Pulse Ox O2 Delivery O2 Flow Rate FiO2 01/16/18 04:36 20 01/16/18 00:00 97.5 65 18 153/73 (99) 100 01/15/18 20:00 98.0 70 18 125/67 (86) 100 01/15/18 16:00 97.9 72 18 123/61 (81) 100 01/15/18 12:00 98.1 67 19 126/59 (81) 100 01/15/18 08:00 98.5 74 18 145/65 (91) 100 I/O 01/15/18 01/15/18 01/15/18 01/16/18 01/16/18 01/16/18 07:00 15:00 23:00 07:00 15:00 23:00 Intake Total 480 ml 1280 ml 240 ml Output Total 45 ml 170 ml 90 ml Balance 435 ml 1110 ml 150 ml Intake Oral 480 ml 980 ml 240 ml IV Total 300 ml Stool Total 100 ml Drainage Total 45 ml 70 ml 90 ml # Voids 2 4 2 # Bowel Movements 0 Result Diagram: 01/15/18 0434 01/15/18 0434 Objective Remarks GENERAL: Well-appearing, no acute distress, sitting up in chair SKIN: Warm and dry. HEAD: Normocephalic. EYES: No scleral icterus. No injection or drainage. NECK: Supple, trachea midline. No JVD or lymphadenopathy. CARDIOVASCULAR: Regular rate and rhythm without murmurs, gallops, or rubs. RESPIRATORY: Breath sounds equal bilaterally. No accessory muscle use. GASTROINTESTINAL: Abdomen soft, nondistended. Left lower quadrant drain in place, serosanguineous fluid is present. There is tenderness to palpation of left lower quadrant, but overall abdominal exam is improved from previous. MUSCULOSKELETAL: No cyanosis, or edema. A/P Problem List: (1) Hypertension ICD Code: I10 - Essential (primary) hypertension Status: Chronic (2) Pyoderma gangrenosum ICD Code: L88 - Pyoderma gangrenosum Status: Chronic (3) Intra-abdominal abscess ICD Code: K65.1 - Peritoneal abscess Status: Acute Assessment and Plan In summary this is an 82-year-old female patient with a history of pyoderma gangrenosum, ulcerative colitis who presented to [place] ED with several day history of nonradiating left lower quadrant pain. The patient been recently treated with Cipro on 2 separate occasions with minimal improvement of symptoms. In the ED imaging showed left lower quadrant subcutaneous and intra- abdominal abscess. Patient underwent IR drainage with drain placement. Left lower quadrant abscess Met sepsis criteria on admission, currently no leukocytosis (patient is on steroids so immunoresponse may be blunted) she is afebrile and lactic acid is 1.8 Colorectal surgery consulted: Follow-up CT scheduled for Wednesday. Continue drain placed by interventional radiology. Continue broad-spectrum antibiotics with Zosyn and vancomycin Consult pharmacy to for vanco through Add lactobacillus for diarrhea Ulcerative colitis Pyoderma gangrenosum Continue sulfazine, continue mycophenolate History of venous insufficiency Echo in 2015 with normal EF Patient's Lasix and spironolactone are currently on hold History of DVT Is on Pradaxa as an outpatient, this was placed on hold Patient is currently on heparin drip if patient needs a potential procedure Chronic anemia No signs of bleeding at this time Hemoglobin is stable Suspected adrenal insufficiency due to chronic steroid use Continue prednisone 20 mg daily DVT prophy: bilat scd GI prophy: protonix 40 mg daily Discharge Planning Clinically improving, to be reevaluated on Wednesday by general surgery. Bettina Gunn MD Jan 16, 2018 07:49
[2018-01-16] MEDS ORDERED: Vancomycin Consult Pharmacy 1 EA OTHER SCH (08:45)
[2018-01-16] MEDS: LACTOBACILLUS ACIDOPHILUS TAB PO SCH ×2 (08:59→20:30)
[2018-01-16] MEDS: sulfaSALAzine 500 MG TAB PO SCH ×2 (08:59→20:30)
[2018-01-16] MEDS: MYCOPHENOLATE MOFETIL 500 MG TAB PO SCH ×2 (09:00→20:30)
[2018-01-16] MEDS: SODIUM CHLORIDE 0.9% FLUSH 10 ML FLUSH IV FLUSH SCH ×2 (09:00→21:00)
[2018-01-16] MEDS: predniSONE 20 MG TAB PO SCH (09:00)
[2018-01-16] MEDS: PANTOPRAZOLE SOD 40 MG DELAYED RELEASE TAB PO SCH (09:00)
[2018-01-16 09:25] VITALS: BP 129/63; PULSE 70; RESP 18; TEMP 97.8; O2SAT 100
--- NOTE | 2018-01-16 11:49 | HHI.PR ---
Subjective Remarks Pt feels fine. Sitting in chair. Objective Vital Signs Date Time Temp Pulse Resp B/P (MAP) Pulse Ox O2 Delivery O2 Flow Rate FiO2 01/16/18 09:25 97.8 70 18 129/63 (85) 100 01/16/18 04:36 20 01/16/18 00:00 97.5 65 18 153/73 (99) 100 01/15/18 20:00 98.0 70 18 125/67 (86) 100 01/15/18 16:00 97.9 72 18 123/61 (81) 100 01/15/18 12:00 98.1 67 19 126/59 (81) 100 I/O 01/15/18 01/15/18 01/15/18 01/16/18 01/16/18 01/16/18 07:00 15:00 23:00 07:00 15:00 23:00 Intake Total 480 ml 1280 ml 240 ml Output Total 45 ml 170 ml 90 ml Balance 435 ml 1110 ml 150 ml Intake Oral 480 ml 980 ml 240 ml IV Total 300 ml Stool Total 100 ml Drainage Total 45 ml 70 ml 90 ml # Voids 2 4 2 # Bowel Movements 0 Result Diagram: 01/15/18 0434 01/15/18 0434 Other Results VS-S Abd: flat, soft. Drain LLQ draining brown liquid C/W stool. Assessment and Plan Assessment and Plan Stable . 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 ? secondary to Diverticulitis or Colitis. Plan: ? F/U CT per IR tomorrow I will eventually need to do Flex sig/Colonoscopy to evaluate colon for colitis and possible surgery if drainage does not stop Aj Harrell MD Jan 16, 2018 11:49
[2018-01-16 13:10] VITALS: BP 121/58; PULSE 65; RESP 18; TEMP 97.4; O2SAT 100
[2018-01-16 17:26] VITALS: BP 157/68; PULSE 53; RESP 17; TEMP 97.8; O2SAT 97
[2018-01-16] MEDS: VANCOMYCIN 1,000 MG/NS 250 ML IV SCH ×2 (17:59)
[2018-01-16 20:00] VITALS: BP 135/66; PULSE 76; RESP 17; TEMP 97.7; O2SAT 100
--- NOTE | 2018-01-16 23:09 | HHI.PR ---
Subjective Remarks NOT SEEN Objective Vitals Vital Signs Date Time Temp Pulse Resp B/P (MAP) Pulse Ox O2 Delivery O2 Flow Rate FiO2 01/16/18 22:03 20 01/16/18 20:00 97.7 76 17 135/66 (89) 100 01/16/18 17:26 97.8 53 17 157/68 (97) 97 01/16/18 13:10 97.4 65 18 121/58 (79) 100 01/16/18 09:25 97.8 70 18 129/63 (85) 100 01/16/18 00:00 97.5 65 18 153/73 (99) 100 I/O 01/16/18 01/16/18 01/16/18 01/17/18 01/17/18 01/17/18 07:00 15:00 23:00 07:00 15:00 23:00 Intake Total 240 ml 50 ml 1200 ml Output Total 90 ml 75 ml Balance 150 ml 50 ml 1125 ml Intake Oral 240 ml 1200 ml IV Total 50 ml Drainage Total 90 ml 75 ml # Voids 2 4 # Bowel Movements 0 3 Result Diagram: 01/15/18 0434 01/15/18 0434 Objective Remarks GENERAL: Well-appearing, no acute distress, sitting up in chair SKIN: Warm and dry. HEAD: Normocephalic. EYES: No scleral icterus. No injection or drainage. NECK: Supple, trachea midline. No JVD or lymphadenopathy. CARDIOVASCULAR: Regular rate and rhythm without murmurs, gallops, or rubs. RESPIRATORY: Breath sounds equal bilaterally. No accessory muscle use. GASTROINTESTINAL: Abdomen soft, nondistended. Left lower quadrant drain in place, serosanguineous fluid is present. There is tenderness to palpation of left lower quadrant, but overall abdominal exam is improved from previous. MUSCULOSKELETAL: No cyanosis, or edema. Procedures IR drainage with drain placement of intraabdominal abscess. A/P Problem List: (1) Intra-abdominal abscess ICD Code: K65.1 - Peritoneal abscess Status: Acute Assessment and Plan In summary this is an 82-year-old female patient with a history of pyoderma gangrenosum, ulcerative colitis who presented to [place] ED with several day history of nonradiating left lower quadrant pain. The patient been recently treated with Cipro on 2 separate occasions with minimal improvement of symptoms. In the ED imaging showed left lower quadrant subcutaneous and intra- abdominal abscess. Patient underwent IR drainage with drain placement. Left lower quadrant abscess Met sepsis criteria on admission, currently no leukocytosis (patient is on steroids so immunologic response may be blunted) she is afebrile and lactic acid is 1.8 Colorectal surgery consulted: Follow-up CT scheduled for Wednesday. Continue drain placed by interventional radiology. Continue broad-spectrum antibiotics with Zosyn and vancomycin Consult pharmacy to for vanco through Add lactobacillus for diarrhea Ulcerative colitis Pyoderma gangrenosum Continue sulfazine, continue mycophenolate History of venous insufficiency Echo in 2015 with normal EF Patient's Lasix and spironolactone are currently on hold History of DVT Is on Pradaxa as an outpatient, this was placed on hold Patient is currently on heparin drip if patient needs a potential procedure Chronic anemia No signs of bleeding at this time Hemoglobin is stable Suspected adrenal insufficiency due to chronic steroid use Continue prednisone 20 mg daily DVT prophy: bilat scd GI prophy: protonix 40 mg daily Sylvester Reyna MD Jan 16, 2018 23:09
[2018-01-17] VITALS: BP 130/67; PULSE 72; RESP 17; TEMP 97.9; O2SAT 100
[2018-01-17] MEDS: ACETAMINOPHEN 325 MG TAB PO PRN ×3 (03:16→21:57)
[2018-01-17] MEDS: PIPERACIL-TAZO 2.25 GM PREMIX 50 ML IV SCH ×2 (03:18→09:00)
[2018-01-17 03:34] LABS: AUTOMATED NEUTROPHIL # 1.9 TH/MM3 (1.8-7.7); BASOPHIL % 1.2 % (0.0-2.0); EOSINOPHIL % 0.5 % (0.0-4.0); HEMATOCRIT 23.6 % (35.0-46.0); HEMOGLOBIN 7.3 GM/DL (11.6-15.3); LYMPH % 30.4 % (9.0-44.0); LYMPHOCYTE # 1.2 TH/MM3 (1.0-4.8); MEAN CELL VOLUME 76.8 FL (80.0-100.0); MEAN CORPUSCULAR HEMOGLOBIN 23.6 PG (27.0-34.0); MEAN CORPUSCULAR HGB CONC 30.7 % (32.0-36.0); MEAN PLATELET VOLUME 6.5 FL (7.0-11.0); MONO % 18.8 % (0.0-8.0); MONOCYTE # 0.7 TH/MM3 (0-0.9); NEUT % 49.1 % (16.0-70.0); PLATELET COUNT 456 TH/MM3 (150-450); RED BLOOD COUNT 3.08 MIL/MM3 (4.00-5.30); WHITE BLOOD COUNT 3.9 TH/MM3 (4.0-11.0)
[2018-01-17 03:52] LABS: BICARBONATE 22.1 MEQ/L (21.0-32.0); CALCIUM 8.4 MG/DL (8.5-10.1); CREATININE 0.73 MG/DL (0.50-1.00)
[2018-01-17 04:04] LABS: BANDS 15 % (0-6); LYMPHOCYTES 24 % (9-44); MONOCYTES 10 % (0-8); NEUTROPHIL # MANUAL DIFF 2.5 TH/MM3 (1.8-7.7); POLYS (SEG NEUTROPHILS) 50 % (16-70)
[2018-01-17] MEDS: HEPARIN-D5W 25,000 U/250 ML 250 ML IV PRN (05:29)
[2018-01-17 08:00] VITALS: BP 148/67; PULSE 62; RESP 14; TEMP 98.1; O2SAT 100
--- NOTE | 2018-01-17 09:08 | RADRPT ---
EXAM DATE: 01/14/2018 5:01 PM EDT AGE/SEX: 82 years / Female INDICATIONS: Left sided abscess drain. CLINICAL DATA: This is the patient's initial encounter. Patient reports that signs and symptoms have been present for 1 day and indicates a pain score of 5/10. MEDICAL/SURGICAL HISTORY: None. None. COMPARISON: [facility], CT PELVIS W/O CONTRAST, 01/14/2018. . BIOPSY SITE: Left pelvic abscess MEDICATION(S): 25 mcg fentanyl (Sublimaze) IV DEVICE(S): 10 Fr Skater FLUID: Total volume of 30 cc of thick brown fluid was removed. Fluid was sent to lab for ordered studies.. Prophylactic antibiotics were administered with appropriate pre-procedure timing. . . PROCEDURE : CT guided drainage of the Left pelvic abscess. The patient has both a deep and superficial air and fluid collection in the left pelvis suspicious fo r an abscess. Based on appearance it may be related to the sigmoid colon. The patient is on anticoagu lation and has recently eaten. Secondary to these factors, we decided to drain the superficial collec tion at this time and treat the patient with antibiotics. If the deeper collection is not drained by the superficial drain the patient will be returned a next week for drainage of the deeper collection. The risks, benefits and alternatives to the procedure were explained and verbal and written consent w as obtained. Using automated exposure control and adjustment of the mA and/or kV according to patient size, radiation dose was kept as low as reasonably achievable to obtain optimal diagnostic quality i mages. The site was prepped in sterile fashion. Full sterile technique was used, including cap, ma sk, sterile gloves and gown and a large sterile sheet. Hand hygiene and 2% chlorhexidine and/or beta dine/alcohol prep was utilized per protocol for cutaneous antisepsis. The skin and subcutaneous tiss ues were infiltrated with local anesthetic solution. DICOM format image data is available electronic ally for review and comparison. Using CT guidance the superficial left lower quadrant pelvis abscess was localized. Drainage was per formed using the prescribed catheter. A total of 30 cc of thick brownish fluid was removed. Samples w ere saved and sent to microbiology for evaluation. The drain was connected to assess cord and suction device. Drain was secured to the skin with sutures and sterile dressing was applied. The patient tolerated the procedure well and there were no complications. The patient tolerated the procedure well and there were no complications. The patient was sent to post anesthesia recovery in s table condition. CONCLUSION: 1. Uncomplicated CT guided drainage of the superficial aspect of the left pelvis abscess. A total of 30 cc of infected appearing material was removed and sent for evaluation. 2. If the deeper collection does not improve or resolve following superficial drainage and antibioti c treatment, the patient will return next week for possible deep drain placement. Electronically signed by: Aj Geiger MD 01/17/2018 9:07 AM EDT
[2018-01-17] MEDS: LACTOBACILLUS ACIDOPHILUS TAB PO SCH ×2 (09:38→21:56)
[2018-01-17] MEDS: PANTOPRAZOLE SOD 40 MG DELAYED RELEASE TAB PO SCH (09:39)
[2018-01-17] MEDS: predniSONE 20 MG TAB PO SCH (09:39)
[2018-01-17] MEDS: sulfaSALAzine 500 MG TAB PO SCH ×2 (09:39→21:58)
--- NOTE | 2018-01-17 09:39 | RADRPT ---
EXAM DATE: 01/17/2018 9:09 AM EDT AGE/SEX: 82 years / Female INDICATIONS: Evaluate drain CLINICAL DATA: This is the patient's initial encounter. Patient reports that signs and symptoms have been present for 4 - 6 days and indicates a pain score of 2/10. MEDICAL/SURGICAL HISTORY: Deep venous thrombosis. None. RADIATION DOSE: 10.94 CTDI (mGy) COMPARISON: . TECHNIQUE: Multiple contiguous axial images were obtained through the pelvis without contrast. Imag es were obtained using multiple row detector helical technique. . Using automated exposure control an d adjustment of the mA and/or kV according to patient size, radiation dose was kept as low as reasona yoselin achievable to obtain optimal diagnostic quality images. FINDINGS: Percutaneous drain is seen in the left inguinal region draining a large iliopsoas abscess.. The iliop soas component has decreased substantially as well. Minimal air persist around the drain. The pelvic contents otherwise remain unremarkable. Total hip arthroplasty is present on the right. CONCLUSION: 1. Substantial improvement. Residual fluid and air remains around the drain on the left.. Electronically signed by: Ritchie Alcala MD 01/17/2018 9:38 AM EDT
[2018-01-17] MEDS: MYCOPHENOLATE MOFETIL 500 MG TAB PO SCH ×2 (09:40→21:56)
[2018-01-17] MEDS: SODIUM CHLORIDE 0.9% FLUSH 10 ML FLUSH IV FLUSH SCH ×2 (09:41→22:04)
[2018-01-17] MEDS: PIPERACIL-TAZO 4.5 GM PREMIX 100 ML IV SCH ×3 (10:00→22:02)
--- NOTE | 2018-01-17 10:25 | HHI.PR ---
Subjective Remarks Pt feels fine. Sitting in chair. Repeat CT done this AM. D/W Dr Andrea Alcala. Psoas and SQ abscesses makedly better. He will have his Radiology nurse irrigate catheter. Objective Vital Signs Date Time Temp Pulse Resp B/P (MAP) Pulse Ox O2 Delivery O2 Flow Rate FiO2 01/17/18 04:37 20 01/17/18 00:00 97.9 72 17 130/67 (88) 100 01/16/18 20:00 97.7 76 17 135/66 (89) 100 01/16/18 17:26 97.8 53 17 157/68 (97) 97 01/16/18 13:10 97.4 65 18 121/58 (79) 100 I/O 01/16/18 01/16/18 01/16/18 01/17/18 01/17/18 01/17/18 07:00 15:00 23:00 07:00 15:00 23:00 Intake Total 240 ml 50 ml 1200 ml 240 ml Output Total 90 ml 75 ml 47 ml Balance 150 ml 50 ml 1125 ml 240 ml -47 ml Intake Oral 240 ml 1200 ml 240 ml IV Total 50 ml Drainage Total 90 ml 75 ml 47 ml # Voids 2 4 2 # Bowel Movements 0 3 0 Result Diagram: 01/17/18 03001/17/18 030 Objective Remarks VS-S Abd: Benign,denies back or leg pain with psoas. Less drainage Labs: H&H decreased. May need transfusion Assessment and Plan Assessment and Plan Stable . 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 ? secondary to Diverticulitis or Colitis. Anemia. Pt denies rectal bleeding. May be somewhat dilutional. Plan: Irrigate catheter. I will eventually need to do Flex sig/Colonoscopy probably tomorrow or Wednesday to evaluate colon for colitis and possible surgery if drainage does not stop Aj Harrell MD Jan 17, 2018 10:25
[2018-01-17 12:00] VITALS: BP 122/66; PULSE 64; RESP 14; TEMP 97.9; O2SAT 100
[2018-01-17] MEDS: VANCOMYCIN 1,000 MG/NS 250 ML IV SCH ×2 (12:16)
[2018-01-17] MEDS ORDERED: POTASSIUM CHLORIDE 20 MEQ CONTROLLED RELEASE TAB PO ONE (13:30)
--- NOTE | 2018-01-17 14:45 | HHI.PR ---
Subjective Remarks Follow-up abdominal abscess. She is doing okay out of bed to chair denies dizziness, chest pain and shortness of breath. Objective Vitals Vital Signs Date Time Temp Pulse Resp B/P (MAP) Pulse Ox O2 Delivery O2 Flow Rate FiO2 01/17/18 04:37 20 01/17/18 00:00 97.9 72 17 130/67 (88) 100 01/16/18 20:00 97.7 76 17 135/66 (89) 100 01/16/18 17:26 97.8 53 17 157/68 (97) 97 I/O 01/16/18 01/16/18 01/16/18 01/17/18 01/17/18 01/17/18 07:00 15:00 23:00 07:00 15:00 23:00 Intake Total 240 ml 50 ml 1200 ml 240 ml Output Total 90 ml 75 ml 47 ml Balance 150 ml 50 ml 1125 ml 240 ml -47 ml Intake Oral 240 ml 1200 ml 240 ml IV Total 50 ml Drainage Total 90 ml 75 ml 47 ml # Voids 2 4 2 # Bowel Movements 0 3 0 Result Diagram: 01/17/18 0302 01/17/18 0302 Imaging Last Impressions Pelvis CT 01/17/18 0000 Signed Impressions: CONCLUSION: 1. Substantial improvement. Residual fluid and air remains around the drain on the left.. Abscess Drainage CT 01/14/18 0000 Signed Impressions: CONCLUSION: 1. Uncomplicated CT guided drainage of the superficial aspect of the left pelv is abscess. A total of 30 cc of infected appearing material was removed and sen t for evaluation. 2. If the deeper collection does not improve or resolve following superficial drainage and antibiotic treatment, the patient will return next week for possib le deep drain placement. Objective Remarks GENERAL: Well-appearing, no acute distress, sitting up in chair SKIN: Warm and dry. CARDIOVASCULAR: Regular rate and rhythm without murmurs, gallops, or rubs. RESPIRATORY: Breath sounds equal bilaterally. No accessory muscle use. GASTROINTESTINAL: Abdomen soft, nondistended. Left lower quadrant drain in place, serosanguineous fluid is present. There is tenderness to palpation of left lower quadrant, but overall abdominal exam is improved from previous. MUSCULOSKELETAL: No cyanosis, or edema. Procedures IR drainage with drain placement of intraabdominal abscess. A/P Problem List: (1) Intra-abdominal abscess ICD Code: K65.1 - Peritoneal abscess Status: Acute Assessment and Plan In summary this is an 82-year-old female patient with a history of pyoderma gangrenosum, ulcerative colitis who presented to [place] ED with several day history of nonradiating left lower quadrant pain. The patient been recently treated with Cipro on 2 separate occasions with minimal improvement of symptoms. In the ED imaging showed left lower quadrant subcutaneous and intra- abdominal abscess. Patient underwent IR drainage with drain placement. Left lower quadrant abscess Met sepsis criteria on admission, currently no leukocytosis (patient is on steroids so immunologic response may be blunted) she is afebrile and lactic acid is 1.8 Colorectal surgery consulted: Follow-up CT improved abscess. Continue drain placed by interventional radiology. Continue broad-spectrum antibiotics with Zosyn and vancomycin Consult pharmacy to for vanco through Added lactobacillus for diarrhea Per CRS may need scope if drainage does not stop Ulcerative colitis Pyoderma gangrenosum Continue sulfazine, continue mycophenolate History of venous insufficiency Echo in 2016 with normal EF Patient's Lasix and spironolactone are currently on hold History of DVT Is on Pradaxa as an outpatient, this was placed on hold Patient is currently on heparin drip if patient needs a potential procedure Chronic anemia. Worse No signs of bleeding at this time but hemoccult positive Rpt hb transfuse to keep hb > 7 unless active bleeding Suspected adrenal insufficiency due to chronic steroid use Continue prednisone 20 mg daily DVT prophy: bilat scd GI prophy: protonix 40 mg daily Discharge Planning Not ready for discharge may need colonoscopy Sylvester Reyna MD Jan 17, 2018 14:45
[2018-01-17 16:00] VITALS: BP 144/69; PULSE 70; RESP 16; TEMP 97.9; O2SAT 100
[2018-01-17 16:19] LABS: HEMATOCRIT 31.2 % (35.0-46.0); HEMOGLOBIN 9.5 GM/DL (11.6-15.3)
[2018-01-17 20:00] VITALS: BP 133/65; PULSE 66; RESP 18; TEMP 97.9; O2SAT 100
[2018-01-18] VITALS: BP 130/61; PULSE 68; RESP 17; TEMP 97.7; O2SAT 100
[2018-01-18] MEDS: PIPERACIL-TAZO 4.5 GM PREMIX 100 ML IV SCH ×2 (04:00→08:19)
[2018-01-18] MEDS: VANCOMYCIN 1,000 MG/NS 250 ML IV SCH ×2 (05:16)
[2018-01-18] MEDS: ACETAMINOPHEN 325 MG TAB PO PRN ×3 (05:52→20:11)
[2018-01-18 07:24] LABS: BASOPHIL % 0.6 % (0.0-2.0); EOSINOPHIL % 0.6 % (0.0-4.0); HEMATOCRIT 27.2 % (35.0-46.0); HEMOGLOBIN 8.4 GM/DL (11.6-15.3); LYMPH % 23.4 % (9.0-44.0); LYMPHOCYTE # 1.5 TH/MM3 (1.0-4.8); MEAN CELL VOLUME 76.6 FL (80.0-100.0); MEAN CORPUSCULAR HEMOGLOBIN 23.6 PG (27.0-34.0); MEAN CORPUSCULAR HGB CONC 30.8 % (32.0-36.0); MEAN PLATELET VOLUME 7.1 FL (7.0-11.0); MONO % 10.6 % (0.0-8.0); MONOCYTE # 0.7 TH/MM3 (0-0.9); NEUT % 64.8 % (16.0-70.0); PLATELET COUNT 601 TH/MM3 (150-450); RED BLOOD COUNT 3.54 MIL/MM3 (4.00-5.30); RED CELL DISTRIBUTION WIDTH 19.5 % (11.6-17.2); WHITE BLOOD COUNT 6.2 TH/MM3 (4.0-11.0)
[2018-01-18 07:35] LABS: BICARBONATE 22.1 MEQ/L (21.0-32.0); CALCIUM 8.8 MG/DL (8.5-10.1); CREATININE 0.78 MG/DL (0.50-1.00); MAGNESIUM 1.9 MG/DL (1.5-2.5)
[2018-01-18 08:00] VITALS: BP 117/59; PULSE 65; RESP 18; TEMP 98.3; O2SAT 100
[2018-01-18] MEDS: HEPARIN-D5W 25,000 U/250 ML 250 ML IV PRN (08:16)
[2018-01-18] MEDS: SODIUM CHLORIDE 0.9% FLUSH 10 ML FLUSH IV FLUSH SCH ×2 (08:21→20:25)
[2018-01-18] MEDS: predniSONE 20 MG TAB PO SCH (08:21)
[2018-01-18] MEDS: sulfaSALAzine 500 MG TAB PO SCH ×2 (08:21→20:12)
[2018-01-18] MEDS: PANTOPRAZOLE SOD 40 MG DELAYED RELEASE TAB PO SCH (08:21)
[2018-01-18] MEDS: MYCOPHENOLATE MOFETIL 500 MG TAB PO SCH ×2 (08:21→20:12)
[2018-01-18] MEDS: LACTOBACILLUS ACIDOPHILUS TAB PO SCH ×2 (08:21→20:11)
--- NOTE | 2018-01-18 09:13 | HHI.PR ---
Subjective Remarks Follow-up intra-abdominal abscess and anemia. States she is doing okay no gross bleeding Objective Vitals Vital Signs Date Time Temp Pulse Resp B/P (MAP) Pulse Ox O2 Delivery O2 Flow Rate FiO2 01/18/18 00:00 97.7 68 17 130/61 (84) 100 01/17/18 20:00 97.9 66 18 133/65 (87) 100 01/17/18 16:00 97.9 70 16 144/69 (94) 100 01/17/18 12:00 97.9 64 14 122/66 (84) 100 I/O 01/17/18 01/17/18 01/17/18 01/18/18 01/18/18 01/18/18 07:00 15:00 23:00 07:00 15:00 23:00 Intake Total 240 ml 1200 ml 340 ml Output Total 47 ml 5 ml Balance 240 ml -47 ml 1200 ml 335 ml Intake Oral 240 ml 1200 ml 240 ml IV Total 100 ml Drainage Total 47 ml 5 ml # Voids 2 4 2 # Bowel Movements 0 1 Result Diagram: 01/18/18 0656 01/18/18 0606 Imaging Last Impressions Pelvis CT 01/17/18 0000 Signed Impressions: CONCLUSION: 1. Substantial improvement. Residual fluid and air remains around the drain on the left.. Abscess Drainage CT 01/14/18 0000 Signed Impressions: CONCLUSION: 1. Uncomplicated CT guided drainage of the superficial aspect of the left pelv is abscess. A total of 30 cc of infected appearing material was removed and sen t for evaluation. 2. If the deeper collection does not improve or resolve following superficial drainage and antibiotic treatment, the patient will return next week for possib le deep drain placement. Objective Remarks GENERAL: Well-appearing, no acute distress, sitting up in chair SKIN: Warm and dry. CARDIOVASCULAR: Regular rate and rhythm without murmurs, gallops, or rubs. RESPIRATORY: Breath sounds equal bilaterally. No accessory muscle use. GASTROINTESTINAL: Abdomen soft, nondistended. Left lower quadrant drain in place, serosanguineous fluid is present. There is tenderness to palpation of left lower quadrant, but overall abdominal exam is improved from previous. MUSCULOSKELETAL: No cyanosis, or edema. Procedures IR drainage with drain placement of intraabdominal abscess. A/P Problem List: (1) Intra-abdominal abscess ICD Code: K65.1 - Peritoneal abscess Status: Acute Assessment and Plan In summary this is an 82-year-old female patient with a history of pyoderma gangrenosum, ulcerative colitis who presented to [place] ED with several day history of nonradiating left lower quadrant pain. The patient been recently treated with Cipro on 2 separate occasions with minimal improvement of symptoms. In the ED imaging showed left lower quadrant subcutaneous and intra- abdominal abscess. Patient underwent IR drainage with drain placement. Left lower quadrant abscess Met sepsis criteria on admission, currently no leukocytosis (patient is on steroids so immunologic response may be blunted) she is afebrile and lactic acid is 1.8 Colorectal surgery consulted: Follow-up CT improved abscess. Continue drain placed by interventional radiology. Wound culture with Proteus continue broad-spectrum antibiotics with Unasyn and vancomycin Added lactobacillus for diarrhea Per CRS for flex sigmoidoscopy tomorrow Ulcerative colitis Pyoderma gangrenosum Continue sulfazine, continue mycophenolate History of venous insufficiency Echo in 2015 with normal EF Patient's Lasix and spironolactone are currently on hold History of DVT Is on Pradaxa as an outpatient, this was placed on hold Patient is currently on heparin drip if patient needs a potential procedure Chronic anemia. Worse No signs of bleeding at this time but hemoccult positive Rpt hb transfuse to keep hb > 7 unless active bleeding Suspected adrenal insufficiency due to chronic steroid use Continue prednisone 20 mg daily DVT prophy: bilat scd GI prophy: protonix 40 mg daily Discharge Planning For flex sig tomorrow Sylvester Reyna MD Jan 18, 2018 09:13
[2018-01-18] MEDS ORDERED: POTASSIUM CHLORIDE 20 MEQ CONTROLLED RELEASE TAB PO ONE (09:15)
--- NOTE | 2018-01-18 10:24 | HHI.IDPN ---
Subjective Subjective Remarks draining feculent matrerial around drain co LLQ pain, tenderness afebrile grew Proteus (R only to TS) and ? anaerobs Antibiotics zosyn Allergies: Coded Allergies: No Known Allergies (Verified , 07/02/16) Objective . Vital Signs Date Time Temp Pulse Resp B/P (MAP) Pulse Ox O2 Delivery O2 Flow Rate FiO2 01/18/18 08:00 98.3 65 18 117/59 (78) 100 01/18/18 00:00 97.7 68 17 130/61 (84) 100 01/17/18 20:00 97.9 66 18 133/65 (87) 100 01/17/18 16:00 97.9 70 16 144/69 (94) 100 01/17/18 12:00 97.9 64 14 122/66 (84) 100 . Laboratory Tests Test 01/17/18 03:02 01/17/18 16:04 01/18/18 06:56 White Blood Count 3.9 TH/MM3 6.2 TH/MM3 Red Blood Count 3.08 MIL/MM3 3.54 MIL/MM3 Hemoglobin 7.3 GM/DL 9.5 GM/DL 8.4 GM/DL Hematocrit 23.6 % 31.2 % 27.2 % Mean Corpuscular Volume 76.8 FL 76.6 FL Mean Corpuscular Hemoglobin 23.6 PG 23.6 PG Mean Corpuscular Hemoglobin Concent 30.7 % 30.8 % Red Cell Distribution Width 20.0 % 19.5 % Platelet Count 456 TH/MM3 601 TH/MM3 Mean Platelet Volume 6.5 FL 7.1 FL Neutrophils (%) (Auto) 49.1 % 64.8 % Lymphocytes (%) (Auto) 30.4 % 23.4 % Monocytes (%) (Auto) 18.8 % 10.6 % Eosinophils (%) (Auto) 0.5 % 0.6 % Basophils (%) (Auto) 1.2 % 0.6 % Neutrophils # (Auto) 1.9 TH/MM3 4.0 TH/MM3 Lymphocytes # (Auto) 1.2 TH/MM3 1.5 TH/MM3 Monocytes # (Auto) 0.7 TH/MM3 0.7 TH/MM3 Eosinophils # (Auto) 0.0 TH/MM3 0.0 TH/MM3 Basophils # (Auto) 0.0 TH/MM3 0.0 TH/MM3 CBC Comment AUTO DIFF DIFF FINAL Differential Total Cells Counted 100 Neutrophils % (Manual) 50 % Band Neutrophils % 15 % Lymphocytes % 24 % Monocytes % 10 % Eosinophils % 1 % Neutrophils # (Manual) 2.5 TH/MM3 Differential Comment FINAL DIFF MANUAL Platelet Estimate NORMAL Platelet Morphology Comment NORMAL Laboratory Tests Test 01/17/18 03:02 01/18/18 06:06 Blood Urea Nitrogen 10 MG/DL 9 MG/DL Creatinine 0.73 MG/DL 0.78 MG/DL Random Glucose 80 MG/DL 72 MG/DL Calcium Level 8.4 MG/DL 8.8 MG/DL Sodium Level 143 MEQ/L 142 MEQ/L Potassium Level 3.3 MEQ/L 3.5 MEQ/L Chloride Level 110 MEQ/L 110 MEQ/L Carbon Dioxide Level 22.1 MEQ/L 22.1 MEQ/L Anion Gap 11 MEQ/L 10 MEQ/L Estimat Glomerular Filtration Rate 93 ML/MIN 86 ML/MIN Magnesium Level 1.9 MG/DL Microbiology Date/Time Source Procedure Growth Status 01/15/18 11:00 Stool Stool Stool Occult Blood (MAGALIE) - Final HEMOCCULT POSITIVE Complete Imaging Last Impressions Pelvis CT 01/17/18 0000 Signed Impressions: CONCLUSION: 1. Substantial improvement. Residual fluid and air remains around the drain on the left.. Abscess Drainage CT 01/14/18 0000 Signed Impressions: CONCLUSION: 1. Uncomplicated CT guided drainage of the superficial aspect of the left pelv is abscess. A total of 30 cc of infected appearing material was removed and sen t for evaluation. 2. If the deeper collection does not improve or resolve following superficial drainage and antibiotic treatment, the patient will return next week for possib le deep drain placement. Physical Exam CONSTITUTIONAL/GENERAL: This is a thin elderly female patient, in no apparent distress. TUBES/LINES/DRAINS: SKIN: No jaundice, rashes, or lesions. Scars intensive on BLE Ecchymoses on upper extremities. No wounds seen anteriorly. Skin temperature appropriate. Not diaphoretic. CARDIOVASCULAR: Regular rate and rhythm without murmurs, gallops, or rubs. No JVD. Peripheral pulses symmetric. RESPIRATORY/CHEST: Symmetric, unlabored respirations. Clear to auscultation. Breath sounds equal bilaterally. No wheezes, rales, or rhonchi. GASTROINTESTINAL: Abdomen soft, non-tender, nondistended. No hepato-splenomegaly , or palpable masses. No guarding. Bowel sounds present. Drain in place LLQ area with purulent d/c feculent drainage aroun the drain GENITOURINARY: Without palpable bladder distension. MUSCULOSKELETAL: Extremities without clubbing, cyanosis, or edema. NEUROLOGICAL: Awake and alert. Motor and sensory grossly within normal limits. Follows commands. Clear speech. Moves all extremities. PSYCHIATRIC: No obvious anxiety/depression. no apparent hallucinations or other psychotic thought process. Assessment & Plan Remarks Intraabdominal abscess, sp IR drainage clx with proteus, anaerobns ? fistula foprmation Ulcerative colitis switch zosyn to Unasyn will follow clx fu clinically will dw CRS Justa Zavaleta MD Jan 18, 2018 10:23
[2018-01-18 12:00] VITALS: BP 136/67; PULSE 63; RESP 18; TEMP 98; O2SAT 100
--- NOTE | 2018-01-18 13:37 | HHI.PR ---
Subjective Remarks Pt feels fine. Sitting in chair. Drainage ribbon cleaner and decreased since irrigation by IR nurse. Objective Vital Signs Date Time Temp Pulse Resp B/P (MAP) Pulse Ox O2 Delivery O2 Flow Rate FiO2 01/18/18 12:00 98.0 63 18 136/67 (90) 100 01/18/18 08:00 98.3 65 18 117/59 (78) 100 01/18/18 00:00 97.7 68 17 130/61 (84) 100 01/17/18 20:00 97.9 66 18 133/65 (87) 100 01/17/18 16:00 97.9 70 16 144/69 (94) 100 I/O 01/17/18 01/17/18 01/17/18 01/18/18 01/18/18 01/18/18 07:00 15:00 23:00 07:00 15:00 23:00 Intake Total 240 ml 1200 ml 340 ml Output Total 47 ml 5 ml Balance 240 ml -47 ml 1200 ml 335 ml Intake Oral 240 ml 1200 ml 240 ml IV Total 100 ml Drainage Total 47 ml 5 ml # Voids 2 4 2 # Bowel Movements 0 1 Result Diagram: 01/18/18 0656 01/18/18 0606 Objective Remarks VS-S Abd: Benign,denies back or leg pain with psoas. Less drainage,ribbon cleaner Labs: H&H decreased. May need transfusion Assessment and Plan Assessment and Plan Stable . 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 ? secondary to Diverticulitis or Colitis. Anemia. Pt denies rectal bleeding. May be somewhat dilutional. Plan: Will plan on Flex Sig tomorrow AM to R/O ulcerative colitis. F/U CT scan when recommended by IR. I'm not sure antibiotics make a difference at this time as she has no significant abscess cavity and has controlled drainage.We are treating normal colon arnaldo. Aj Harrell MD Jan 18, 2018 13:37
[2018-01-18] MEDS: AMPICILLIN-SULBACTAM INJ 3 GM in SODIUM CHLORIDE 0.9% INJ 100 ML IV SCH ×2 (13:40→18:12)
[2018-01-18 16:00] VITALS: BP 123/59; PULSE 60; RESP 18; TEMP 97.9; O2SAT 100
--- NOTE | 2018-01-18 19:54 | HHI.PR ---
Subjective . Planning Flexible Sigmoidoscopy tomorrow with no prep and no sedation. Unable to schedule sedation and colonoscopy in GI lab tomorrow. Also I doubt if pt has a colon cancer as a source of her anemia. Heme positive stools are easily explained by either her known previous active IBD or the recent Diverticulitis, abscess and subsequent drainage and at least some degree of colocutanous fistula. I have taken care of pt for 18 years. Normal colonoscopy 01/2004 for family history of polyps. Repeat colonoscopy in 03/2009 showed a large hemorrhoid and a single quadrant hemorrhoidectomy was done. 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 Biopsies were c/w IBD/Ulcerative colitis. Remainder of colon was normal. She was treated with Rowasa enemas with complete resolution. In 06/2016 she was admitted with severe Pyoderma gangrenosum of her legs. I then did a Flexible sigmoidoscopy showing complete resolution of proctosigmoiditis and all biopsies were negative. I mainly want to see if she has active IBD in her rectosigmoid as it will make a difference in surgical approach if present conservative therapy is unsuccessful. Aj Harrell MD Jan 18, 2018 19:54
[2018-01-18 20:00] VITALS: BP 148/68; PULSE 65; RESP 18; TEMP 98.1; O2SAT 100
[2018-01-18] MEDS ORDERED: PHARMACY ORDERED LAB ONE (23:45)
[2018-01-19] VITALS: BP 140/63; PULSE 67; RESP 18; TEMP 98.3; O2SAT 100
[2018-01-19] MEDS: ACETAMINOPHEN 325 MG TAB PO PRN ×3 (00:12→15:30)
[2018-01-19] MEDS: AMPICILLIN-SULBACTAM INJ 3 GM in SODIUM CHLORIDE 0.9% INJ 100 ML IV SCH ×5 (00:20→23:15)
[2018-01-19] MEDS: VANCOMYCIN 1,000 MG/NS 250 ML IV SCH ×4 (00:21→18:17)
[2018-01-19] MEDS ORDERED: CHLORHEXIDINE GLUCONATE 2 % 1 PACK (2 CLOTHS) TOPICAL PRN (01:30)
[2018-01-19] MEDS ORDERED: SODIUM CHLORID 0.9% 500 ML IV PRN (01:30)
[2018-01-19] MEDS ORDERED: LACTATED RINGER'S 1000 ML IV PRN (01:30)
[2018-01-19] MEDS ORDERED: POVIDONE IODINE 5% (ANTISEPSIS KIT) 4 APPLICATIONS EACH NARE PRN (01:30)
[2018-01-19] MEDS ORDERED: METOPROLOL TARTRATE 25 MG TAB PO PRN (01:30)
[2018-01-19 04:00] VITALS: BP 146/64; PULSE 64; RESP 18; TEMP 98.1; O2SAT 98
[2018-01-19 08:00] VITALS: BP 139/65; PULSE 67; RESP 18; TEMP 98.2; O2SAT 100
--- NOTE | 2018-01-19 09:00 | MR ---
cc: Aj Harrell MD,Aj Reyna,Sylvester Zavaleta,Justa Munoz MD DATE: 01/19/2018 PREOPERATIVE DIAGNOSES: 1. Pelvic abscess, status post drainage. 2. History of apparent ulcerative proctosigmoiditis. POSTOPERATIVE DIAGNOSIS: Normal rectosigmoid to 30-35 cm. PROCEDURE PERFORMED: Flexible sigmoidoscopy to 30-35 cm. ANESTHESIA: None. SURGEON: Dr. Harrell OPERATIVE FINDINGS: This patient is well known to me. She has had previous colonoscopies by me over the last 18 years, including 2004, 2008, and 2014. In 2014, she had proctosigmoiditis only to about 30 cm that was moderate to severe treated with Rowasa enemas with full resolution. In late 2015, she developed severe pyoderma gangrenosum and was treated by rheumatology. At that time, she had a flexible sigmoidoscopy with no evidence of any colitis at that time. She recently was admitted to the hospital several days ago with a pelvic abscess and subcutaneous abscess, which was drained by interventional radiology. The drainage has been relatively complete and the abscess cavity has collapsed. It was unclear whether this was due to perforated diverticulitis or whether this was due to colitis. Sigmoidoscopy again showed that there was no evidence of any colitis. OPERATIVE TECHNIQUE: The patient was placed on the table in the left lateral position and a colonoscope was introduced through the anal canal into the rectum up into the sigmoid colon to about 30-35 cm. All of the mucosa was totally normal. This was unprepped bowel, but she had had previous bowel motions. The stool was green. There was no evidence of any bleeding. The scope was eventually withdrawn. The patient tolerated the procedure well and left the GI lab in good condition. Aj Harrell MD JTT/CHACE , 08:43 AM , 08:59 AM
[2018-01-19] MEDS: LACTOBACILLUS ACIDOPHILUS TAB PO SCH ×2 (09:02→20:48)
[2018-01-19] MEDS: predniSONE 20 MG TAB PO SCH (09:02)
[2018-01-19] MEDS: MYCOPHENOLATE MOFETIL 500 MG TAB PO SCH ×2 (09:02→20:48)
[2018-01-19] MEDS: sulfaSALAzine 500 MG TAB PO SCH ×2 (09:02→20:48)
[2018-01-19] MEDS: PANTOPRAZOLE SOD 40 MG DELAYED RELEASE TAB PO SCH (09:02)
--- NOTE | 2018-01-19 09:02 | EKG ---
Date Performed: 01/19/2018 Time Performed: 01:44:42 PTAGE: 82 years EKG: Sinus rhythm Normal ECG PREVIOUS TRACING : 07/04/2016 06.06 DOCTOR: Eben Rodriguez Interpretating Date/Time 01/19/2018 09:01:33
[2018-01-19] MEDS: SODIUM CHLORIDE 0.9% FLUSH 10 ML FLUSH IV FLUSH SCH ×2 (09:03→20:53)
--- NOTE | 2018-01-19 10:19 | HHI.PR ---
Subjective Remarks Follow-up intra-abdominal abscess. Patient is glad to know flexible sigmoidoscopy was negative for ulcerative colitis. No output from drain past 24 hours denies nausea and abdominal pain. Has purulent drainage around drain site. Discussed with IR RN, will check patency may need repeat CT and/or removal of drain tomorrow Objective Vitals Vital Signs Date Time Temp Pulse Resp B/P (MAP) Pulse Ox O2 Delivery O2 Flow Rate FiO2 01/19/18 08:00 98.2 67 18 139/65 (89) 100 01/19/18 04:00 98.1 64 18 146/64 (91) 98 01/19/18 00:00 98.3 67 18 140/63 (88) 100 01/18/18 20:00 98.1 65 18 148/68 (94) 100 01/18/18 16:00 97.9 60 18 123/59 (80) 100 01/18/18 12:00 98.0 63 18 136/67 (90) 100 01/18/18 11:13 18 I/O 01/18/18 01/18/18 01/18/18 01/19/18 01/19/18 01/19/18 07:00 15:00 23:00 07:00 15:00 23:00 Intake Total 340 ml 200 ml 1060 ml 670 ml 50 ml Output Total 5 ml 0 ml Balance 335 ml 200 ml 1060 ml 670 ml 50 ml Intake Oral 240 ml 960 ml 320 ml IV Total 100 ml 200 ml 100 ml 350 ml Other 50 ml Drainage Total 5 ml 0 ml # Voids 2 4 2 # Bowel Movements 2 1 Result Diagram: 01/18/18 0656 01/18/18 0606 Imaging Last Impressions Pelvis CT 01/17/18 0000 Signed Impressions: CONCLUSION: 1. Substantial improvement. Residual fluid and air remains around the drain on the left.. Abscess Drainage CT 01/14/18 0000 Signed Impressions: CONCLUSION: 1. Uncomplicated CT guided drainage of the superficial aspect of the left pelv is abscess. A total of 30 cc of infected appearing material was removed and sen t for evaluation. 2. If the deeper collection does not improve or resolve following superficial drainage and antibiotic treatment, the patient will return next week for possib le deep drain placement. Objective Remarks GENERAL: Well-appearing, no acute distress, sitting up in chair SKIN: Warm and dry. CARDIOVASCULAR: Regular rate and rhythm without murmurs, gallops, or rubs. RESPIRATORY: Breath sounds equal bilaterally. No accessory muscle use. GASTROINTESTINAL: Abdomen soft, nondistended. Left lower quadrant drain in place, serosanguineous fluid is present. There is tenderness to palpation of left lower quadrant, but overall abdominal exam is improved from previous. MUSCULOSKELETAL: No cyanosis, or edema. Procedures IR drainage with drain placement of intraabdominal abscess. A/P Problem List: (1) Intra-abdominal abscess ICD Code: K65.1 - Peritoneal abscess Status: Acute Assessment and Plan In summary this is an 82-year-old female patient with a history of pyoderma gangrenosum, ulcerative colitis who presented to [place] ED with several day history of nonradiating left lower quadrant pain. The patient been recently treated with Cipro on 2 separate occasions with minimal improvement of symptoms. In the ED imaging showed left lower quadrant subcutaneous and intra- abdominal abscess. Patient underwent IR drainage with drain placement. Left lower quadrant abscess Met sepsis criteria on admission, currently no leukocytosis (patient is on steroids so immunologic response may be blunted) she is afebrile and lactic acid is 1.8 Colorectal surgery consulted: Follow-up CT improved abscess. Continue drain placed by interventional radiology who will evaluate patency may need repeat CT and/or removal of drain. Wound culture with Proteus continue broad-spectrum antibiotics with Unasyn and vancomycin Added lactobacillus for diarrhea FLex sigmoidoscopy with normal rectosigmoid Ulcerative colitis Pyoderma gangrenosum Continue sulfasalazine and mycophenolate History of venous insufficiency Echo in 2016 with normal EF Patient's Lasix and spironolactone are currently on hold History of DVT Is on Pradaxa as an outpatient, this was placed on hold Patient is currently on heparin drip if patient needs a potential procedure Chronic anemia. Stable No signs of bleeding at this time but hemoccult positive from IBD, abscess or fistula transfuse to keep hb > 7 unless active bleeding Suspected adrenal insufficiency due to chronic steroid use Continue prednisone 20 mg daily DVT prophy: bilat scd GI prophy: protonix 40 mg daily Discharge Planning not ready still has intraabdominal drain Sylvester Reyna MD Jan 19, 2018 10:19
[2018-01-19 11:59] LABS: AUTOMATED NEUTROPHIL # 9.3 TH/MM3 (1.8-7.7); BASOPHIL % 0.4 % (0.0-2.0); EOSINOPHIL % 0.3 % (0.0-4.0); HEMATOCRIT 30.6 % (35.0-46.0); HEMOGLOBIN 9.3 GM/DL (11.6-15.3); LYMPH % 7.1 % (9.0-44.0); LYMPHOCYTE # 0.7 TH/MM3 (1.0-4.8); MEAN CELL VOLUME 77.6 FL (80.0-100.0); MEAN CORPUSCULAR HEMOGLOBIN 23.7 PG (27.0-34.0); MEAN CORPUSCULAR HGB CONC 30.5 % (32.0-36.0); MEAN PLATELET VOLUME 6.7 FL (7.0-11.0); MONO % 2.9 % (0.0-8.0); MONOCYTE # 0.3 TH/MM3 (0-0.9); NEUT % 89.3 % (16.0-70.0); PLATELET COUNT 667 TH/MM3 (150-450); RED BLOOD COUNT 3.94 MIL/MM3 (4.00-5.30); RED CELL DISTRIBUTION WIDTH 20.1 % (11.6-17.2); WHITE BLOOD COUNT 10.4 TH/MM3 (4.0-11.0)
[2018-01-19 12:00] VITALS: BP 125/62; PULSE 75; RESP 17; TEMP 97.8; O2SAT 100
[2018-01-19 12:16] LABS: CALCIUM 9.1 MG/DL (8.5-10.1); CREATININE 0.82 MG/DL (0.50-1.00); MAGNESIUM 1.9 MG/DL (1.5-2.5)
[2018-01-19 16:00] VITALS: BP 128/61; PULSE 65; RESP 16; TEMP 97.7; O2SAT 98
[2018-01-19] MEDS: HEPARIN-D5W 25,000 U/250 ML 250 ML IV PRN (17:27)
[2018-01-19 20:00] VITALS: BP 127/63; PULSE 72; RESP 18; TEMP 98.2; O2SAT 99
[2018-01-20] VITALS: BP 142/66; PULSE 70; RESP 18; TEMP 98; O2SAT 100
[2018-01-20 05:04] LABS: HEMATOCRIT 24.1 % (35.0-46.0); HEMOGLOBIN 7.3 GM/DL (11.6-15.3); MEAN CELL VOLUME 76.2 FL (80.0-100.0); MEAN CORPUSCULAR HEMOGLOBIN 23.2 PG (27.0-34.0); MEAN CORPUSCULAR HGB CONC 30.5 % (32.0-36.0); MEAN PLATELET VOLUME 6.5 FL (7.0-11.0); PLATELET COUNT 593 TH/MM3 (150-450); RED BLOOD COUNT 3.16 MIL/MM3 (4.00-5.30); RED CELL DISTRIBUTION WIDTH 19.9 % (11.6-17.2); WHITE BLOOD COUNT 5.4 TH/MM3 (4.0-11.0)
[2018-01-20] MEDS: AMPICILLIN-SULBACTAM INJ 3 GM in SODIUM CHLORIDE 0.9% INJ 100 ML IV SCH ×4 (06:18→23:36)
[2018-01-20 08:00] VITALS: BP 132/65; PULSE 67; RESP 16; TEMP 98.6; O2SAT 100
--- NOTE | 2018-01-20 09:15 | HHI.PR ---
Subjective Remarks Follow-up intra-abdominal abscess. Denies pain. Ambulating in the hallway. No dizziness, weakness, cp and SOB seen with daughter Nakita Objective Vitals Vital Signs Date Time Temp Pulse Resp B/P (MAP) Pulse Ox O2 Delivery O2 Flow Rate FiO2 01/20/18 00:00 98.0 70 18 142/66 (91) 100 01/19/18 20:00 98.2 72 18 127/63 (84) 99 01/19/18 16:00 97.7 65 16 128/61 (83) 98 01/19/18 12:00 97.8 75 17 125/62 (83) 100 I/O 01/19/18 01/19/18 01/19/18 01/20/18 01/20/18 01/20/18 07:00 15:00 23:00 07:00 15:00 23:00 Intake Total 770 ml 150 ml 1540 ml 460 ml 100 ml Output Total 0 ml 0 ml Balance 770 ml 150 ml 1540 ml 460 ml 100 ml Intake Oral 320 ml 1440 ml 360 ml IV Total 450 ml 100 ml 100 ml 100 ml 100 ml Other 50 ml Drainage Total 0 ml 0 ml # Voids 2 6 2 # Bowel Movements 1 1 0 Result Diagram: 01/20/18 0442 01/19/18 1120 Imaging Last Impressions Pelvis CT 01/17/18 0000 Signed Impressions: CONCLUSION: 1. Substantial improvement. Residual fluid and air remains around the drain on the left.. Abscess Drainage CT 01/14/18 0000 Signed Impressions: CONCLUSION: 1. Uncomplicated CT guided drainage of the superficial aspect of the left pelv is abscess. A total of 30 cc of infected appearing material was removed and sen t for evaluation. 2. If the deeper collection does not improve or resolve following superficial drainage and antibiotic treatment, the patient will return next week for possib le deep drain placement. Objective Remarks GENERAL: Well-appearing, no acute distress, sitting up in chair SKIN: Warm and dry. CARDIOVASCULAR: Regular rate and rhythm without murmurs, gallops, or rubs. RESPIRATORY: Breath sounds equal bilaterally. No accessory muscle use. GASTROINTESTINAL: Abdomen soft, nondistended. Left lower quadrant drain in place, serosanguineous fluid is present. There is tenderness to palpation of left lower quadrant, but overall abdominal exam is improved from previous. MUSCULOSKELETAL: No cyanosis, or edema. Procedures IR drainage with drain placement of intraabdominal abscess. A/P Problem List: (1) Intra-abdominal abscess ICD Code: K65.1 - Peritoneal abscess Status: Acute Assessment and Plan In summary this is an 82-year-old female patient with a history of pyoderma gangrenosum, ulcerative colitis who presented to [place] ED with several day history of nonradiating left lower quadrant pain. The patient been recently treated with Cipro on 2 separate occasions with minimal improvement of symptoms. In the ED imaging showed left lower quadrant subcutaneous and intra- abdominal abscess. Patient underwent IR drainage with drain placement. Left lower quadrant abscess Met sepsis criteria on admission, currently no leukocytosis (patient is on steroids so immunologic response may be blunted) she is afebrile and lactic acid is 1.8 Colorectal surgery consulted: Follow-up CT improved abscess. 70 ml drainage overnight. IR to repeat CT today. Wound culture with Proteus continue broad-spectrum antibiotics with Unasyn and vancomycin Added lactobacillus for diarrhea FLex sigmoidoscopy with normal rectosigmoid Ulcerative colitis Pyoderma gangrenosum Continue sulfasalazine and mycophenolate History of venous insufficiency Echo in 2016 with normal EF Patient's Lasix and spironolactone are currently on hold History of DVT Is on Pradaxa as an outpatient, this was placed on hold Patient is currently on heparin drip if patient needs a potential procedure Chronic anemia. Worse today but asymptomatic. Dilutional? No signs of bleeding at this time but hemoccult positive from IBD, abscess or fistula transfuse to keep hb > 7 unless active bleeding, rpt H/H in am Suspected adrenal insufficiency due to chronic steroid use Continue prednisone 20 mg daily DVT prophy: bilat scd GI prophy: protonix 40 mg daily Discharge Planning not ready still has intraabdominal drain Sylvester Reyna MD Jan 20, 2018 09:15
[2018-01-20] MEDS: PANTOPRAZOLE SOD 40 MG DELAYED RELEASE TAB PO SCH (09:22)
[2018-01-20] MEDS: sulfaSALAzine 500 MG TAB PO SCH ×2 (09:22→20:37)
[2018-01-20] MEDS: LACTOBACILLUS ACIDOPHILUS TAB PO SCH ×2 (09:22→20:37)
[2018-01-20] MEDS: MYCOPHENOLATE MOFETIL 500 MG TAB PO SCH ×2 (09:23→20:36)
[2018-01-20] MEDS: predniSONE 20 MG TAB PO SCH (09:23)
[2018-01-20] MEDS: SODIUM CHLORIDE 0.9% FLUSH 10 ML FLUSH IV FLUSH SCH ×2 (09:23→20:43)
[2018-01-20 12:00] VITALS: BP 147/67; PULSE 72; RESP 17; TEMP 98.5; O2SAT 100
[2018-01-20] MEDS: VANCOMYCIN 1,000 MG/NS 250 ML IV SCH ×2 (12:21)
--- NOTE | 2018-01-20 13:10 | RADRPT ---
EXAM DATE: 01/20/2018 11:54 AM EDT AGE/SEX: 82 years / Female INDICATIONS: F/U pelvic abscess drain. CLINICAL DATA: This is the patient's subsequent encounter. Patient reports that signs and symptoms h ave been present for 4 - 6 days and indicates a pain score of 0/10. MEDICAL/SURGICAL HISTORY: . peritoneal abscess left lower quadrant . abscess drain placed left low er quadrant abdomen RADIATION DOSE: 7.86 CTDI (mGy) COMPARISON: [facility] [place], CT PELVIS W/O CONTRAST, 01/17/2018. . TECHNIQUE: Multiple contiguous axial images were obtained through the pelvis without contrast. Imag es were obtained using multiple row detector helical technique. . Using automated exposure control an d adjustment of the mA and/or kV according to patient size, radiation dose was kept as low as reasona yoselin achievable to obtain optimal diagnostic quality images. FINDINGS: Images show the coped drainage catheter within the anterior abdominal wall within the left lower quad rant. No significant residual fluid surrounding the drain. A small amount of air is seen adjacent to it. No residual abscess observed. Bowel structures and visualized portions of the pelvis are unremark able. Note is made of a trace amount of free fluid deep within the pelvis. A right hip prosthesis not ed. CONCLUSION: 1. No residual abscess. Electronically signed by: Ashutosh Bell MD 01/20/2018 1:09 PM EDT
--- NOTE | 2018-01-20 15:09 | HHI.DCPOC ---
Discharge Care Plan Diagnosis: (1) Intra-abdominal abscess Your Health Problems Are: Difficulty with ADL Exercise Tolerance Goals to Promote Your Health * To prevent worsening of your condition and complications * To maintain your health at the optimal level Directions to Meet Your Goals Take your medications as prescribed Follow your dietary instruction Follow activity as directed Keep your appointments as scheduled Take your immunizations and boosters as scheduled If your symptoms worsen call your PCP, if no PCP go to Urgent Care Center or Emergency Room Smoking is Dangerous to Your Health. Avoid second hand smoke Call the 24-hour hour crisis hotline for domestic abuse at Sylvester Reyna MD Jan 20, 2018 15:09
[2018-01-20 16:00] VITALS: BP 121/70; PULSE 64; RESP 17; TEMP 98.8; O2SAT 100
--- NOTE | 2018-01-20 19:12 | HHI.IDPN ---
Subjective Subjective Remarks less LLQ pain, tenderness afebrile grew Proteus (R only to TS) and ? anaerobs drain was removed, not draining Antibiotics zosyn Allergies: Coded Allergies: No Known Allergies (Verified , 07/02/16) Objective . Vital Signs Date Time Temp Pulse Resp B/P (MAP) Pulse Ox O2 Delivery O2 Flow Rate FiO2 01/20/18 16:00 98.8 64 17 121/70 (87) 100 01/20/18 12:00 98.5 72 17 147/67 (93) 100 01/20/18 08:00 98.6 67 16 132/65 (87) 100 01/20/18 00:00 98.0 70 18 142/66 (91) 100 01/19/18 20:00 98.2 72 18 127/63 (84) 99 01/20/18 01/20/18 01/21/18 15:00 23:00 07:00 Intake Total 200 ml 1530 ml Output Total 80 ml Balance 200 ml 1450 ml Intake Oral 1280 ml IV Total 200 ml 250 ml Drainage Total 80 ml # Voids 4 # Bowel Movements 2 . Laboratory Tests Test 01/19/18 11:20 01/20/18 04:42 White Blood Count 10.4 TH/MM3 5.4 TH/MM3 Red Blood Count 3.94 MIL/MM3 3.16 MIL/MM3 Hemoglobin 9.3 GM/DL 7.3 GM/DL Hematocrit 30.6 % 24.1 % Mean Corpuscular Volume 77.6 FL 76.2 FL Mean Corpuscular Hemoglobin 23.7 PG 23.2 PG Mean Corpuscular Hemoglobin Concent 30.5 % 30.5 % Red Cell Distribution Width 20.1 % 19.9 % Platelet Count 667 TH/MM3 593 TH/MM3 Mean Platelet Volume 6.7 FL 6.5 FL Neutrophils (%) (Auto) 89.3 % Lymphocytes (%) (Auto) 7.1 % Monocytes (%) (Auto) 2.9 % Eosinophils (%) (Auto) 0.3 % Basophils (%) (Auto) 0.4 % Neutrophils # (Auto) 9.3 TH/MM3 Lymphocytes # (Auto) 0.7 TH/MM3 Monocytes # (Auto) 0.3 TH/MM3 Eosinophils # (Auto) 0.0 TH/MM3 Basophils # (Auto) 0.0 TH/MM3 CBC Comment DIFF FINAL Differential Comment Laboratory Tests Test 01/19/18 11:20 Blood Urea Nitrogen 8 MG/DL Creatinine 0.82 MG/DL Random Glucose 117 MG/DL Calcium Level 9.1 MG/DL Magnesium Level 1.9 MG/DL Sodium Level 144 MEQ/L Potassium Level 3.5 MEQ/L Chloride Level 110 MEQ/L Carbon Dioxide Level 21.0 MEQ/L Anion Gap 13 MEQ/L Estimat Glomerular Filtration Rate 81 ML/MIN Imaging Last Impressions Pelvis CT 01/20/18 0000 Signed Impressions: CONCLUSION: 1. No residual abscess. Abscess Drainage CT 01/14/18 0000 Signed Impressions: CONCLUSION: 1. Uncomplicated CT guided drainage of the superficial aspect of the left pelv is abscess. A total of 30 cc of infected appearing material was removed and sen t for evaluation. 2. If the deeper collection does not improve or resolve following superficial drainage and antibiotic treatment, the patient will return next week for possib le deep drain placement. Physical Exam CONSTITUTIONAL/GENERAL: This is a thin elderly female patient, in no apparent distress. TUBES/LINES/DRAINS: SKIN: No jaundice, rashes, or lesions. Scars intensive on BLE Ecchymoses on upper extremities. No wounds seen anteriorly. Skin temperature appropriate. Not diaphoretic. CARDIOVASCULAR: Regular rate and rhythm without murmurs, gallops, or rubs. No JVD. Peripheral pulses symmetric. RESPIRATORY/CHEST: Symmetric, unlabored respirations. Clear to auscultation. Breath sounds equal bilaterally. No wheezes, rales, or rhonchi. GASTROINTESTINAL: Abdomen soft, non-tender, nondistended. No hepato-splenomegaly , or palpable masses. No guarding. Bowel sounds present. Drain was removed; no drainage around feculent drainage aroun the drain MUSCULOSKELETAL: Extremities without clubbing, cyanosis, or edema. NEUROLOGICAL: Awake and alert. Motor and sensory grossly within normal limits. Follows commands. Clear speech. Moves all extremities. PSYCHIATRIC: No obvious anxiety/depression. no apparent hallucinations or other psychotic thought process. Assessment & Plan Remarks Intraabdominal abscess, sp IR drainage clx with proteus, anaerobns ? fistula fo rmation; no longer feculent drainage Ulcerative colitis in am switch Unasyn to am/clav and complete up to 5 more days OK to dc Justa Bright Dr, MD Jan 20, 2018 19:12
[2018-01-20] MEDS ORDERED: AUGM500T7 PO (19:13)
[2018-01-20 20:22] VITALS: BP 127/60; PULSE 82; RESP 17; TEMP 98.3; O2SAT 98
[2018-01-20] MEDS: DABIGATRAN ETEXILATE 150 MG CAP PO SCH (20:42)
--- NOTE | 2018-01-20 22:09 | HHI.PR ---
Subjective Remarks Pt feels fine. Sitting in chair. Drainage had stopped and repeat CT showed resolution of abscess and drainage cath was removed. Objective Vital Signs Date Time Temp Pulse Resp B/P (MAP) Pulse Ox O2 Delivery O2 Flow Rate FiO2 01/20/18 20:22 98.3 82 17 127/60 (82) 98 01/20/18 16:00 98.8 64 17 121/70 (87) 100 01/20/18 12:00 98.5 72 17 147/67 (93) 100 01/20/18 08:00 98.6 67 16 132/65 (87) 100 01/20/18 00:00 98.0 70 18 142/66 (91) 100 I/O 01/19/18 01/19/18 01/19/18 01/20/18 01/20/18 01/20/18 07:00 15:00 23:00 07:00 15:00 23:00 Intake Total 770 ml 150 ml 1540 ml 460 ml 200 ml 1530 ml Output Total 0 ml 0 ml 80 ml Balance 770 ml 150 ml 1540 ml 460 ml 200 ml 1450 ml Intake Oral 320 ml 1440 ml 360 ml 1280 ml IV Total 450 ml 100 ml 100 ml 100 ml 200 ml 250 ml Other 50 ml Drainage Total 0 ml 0 ml 80 ml # Voids 2 6 2 4 # Bowel Movements 1 1 0 2 Result Diagram: 01/20/18 0442 01/19/18 1120 Objective Remarks VS-S Abd: Benign,denies pain Labs: H&Hs fairly stable Assessment and Plan Assessment and Plan Stable . Drain out Plan: Will plan on probable D/C tomorrow. Wean Prednisone rapidly and restart oral anticoagulant D/C on 5-7 days of oral antibiotics I will see in the office next week Aj Harrell MD Jan 20, 2018 22:09
[2018-01-21 00:11] VITALS: BP 129/62; PULSE 64; RESP 17; TEMP 97.9; O2SAT 100
[2018-01-21] MEDS: AMPICILLIN-SULBACTAM INJ 3 GM in SODIUM CHLORIDE 0.9% INJ 100 ML IV SCH ×2 (05:30→11:00)
[2018-01-21 08:00] VITALS: BP 132/67; PULSE 58; RESP 18; TEMP 98.4; O2SAT 100
--- NOTE | 2018-01-21 08:56 | HHI.PR ---
Subjective Remarks Follow-up intra-abdominal abscess. Repeat CT showed resolved abscess. Drain was removed yesterday. Possible discharge today pending labs. Patient is doing okay no symptoms. She is not keen on receiving blood but agrees on iron Objective Vitals Vital Signs Date Time Temp Pulse Resp B/P (MAP) Pulse Ox O2 Delivery O2 Flow Rate FiO2 01/21/18 00:11 97.9 64 17 129/62 (84) 100 01/20/18 20:22 98.3 82 17 127/60 (82) 98 01/20/18 16:00 98.8 64 17 121/70 (87) 100 01/20/18 12:00 98.5 72 17 147/67 (93) 100 I/O 01/20/18 01/20/18 01/20/18 01/21/18 01/21/18 01/21/18 07:00 15:00 23:00 07:00 15:00 23:00 Intake Total 460 ml 200 ml 1530 ml 680 ml Output Total 0 ml 80 ml Balance 460 ml 200 ml 1450 ml 680 ml Intake Oral 360 ml 1280 ml 580 ml IV Total 100 ml 200 ml 250 ml 100 ml Drainage Total 0 ml 80 ml # Voids 2 4 3 # Bowel Movements 0 2 Result Diagram: 01/20/18 0442 01/19/18 1120 Imaging Last Impressions Pelvis CT 01/20/18 0000 Signed Impressions: CONCLUSION: 1. No residual abscess. Abscess Drainage CT 01/14/18 0000 Signed Impressions: CONCLUSION: 1. Uncomplicated CT guided drainage of the superficial aspect of the left pelv is abscess. A total of 30 cc of infected appearing material was removed and sen t for evaluation. 2. If the deeper collection does not improve or resolve following superficial drainage and antibiotic treatment, the patient will return next week for possib le deep drain placement. Objective Remarks GENERAL: Well-appearing, no acute distress, sitting up in chair SKIN: Warm and dry. CARDIOVASCULAR: Regular rate and rhythm without murmurs, gallops, or rubs. RESPIRATORY: Breath sounds equal bilaterally. No accessory muscle use. GASTROINTESTINAL: Abdomen soft, nondistended. Left lower quadrant with dry dressing MUSCULOSKELETAL: No cyanosis, or edema. Procedures IR drainage with drain placement of intraabdominal abscess. A/P Problem List: (1) Intra-abdominal abscess ICD Code: K65.1 - Peritoneal abscess Status: Acute Assessment and Plan In summary this is an 82-year-old female patient with a history of pyoderma gangrenosum, ulcerative colitis who presented to [place] ED with several day history of nonradiating left lower quadrant pain. The patient been recently treated with Cipro on 2 separate occasions with minimal improvement of symptoms. In the ED imaging showed left lower quadrant subcutaneous and intra- abdominal abscess. Patient underwent IR drainage with drain placement. Left lower quadrant abscess Met sepsis criteria on admission, currently no leukocytosis (patient is on steroids so immunologic response may be blunted) she is afebrile and lactic acid is 1.8 Colorectal surgery consulted: Follow-up CT no residual abscess, drain removed yesterday. Wound culture with Proteus .Start Augmentin for 5 more days status post Unasyn and vancomycin Added lactobacillus for diarrhea FLex sigmoidoscopy with normal rectosigmoid Ulcerative colitis Pyoderma gangrenosum Continue sulfasalazine and mycophenolate. Wean prednisone to 50 mg daily History of venous insufficiency Echo in 2016 with normal EF Patient's Lasix and spironolactone are currently on hold History of DVT Is on Pradaxa as an outpatient, restarted yesterday status post heparin drip Chronic anemia. Stable and asymptomatic. No signs of bleeding at this time but hemoccult positive from IBD, abscess or fistula transfuse to keep hb > 7 unless active bleeding, patient not keen on receiving blood but agrees on iron pills if indicated DVT prophy: bilat scd GI prophy: protonix 40 mg daily Sylvester Reyna MD Jan 21, 2018 08:56
[2018-01-21] MEDS: SODIUM CHLORIDE 0.9% FLUSH 10 ML FLUSH IV FLUSH SCH (09:27)
[2018-01-21] MEDS: MYCOPHENOLATE MOFETIL 500 MG TAB PO SCH (09:28)
[2018-01-21] MEDS: PANTOPRAZOLE SOD 40 MG DELAYED RELEASE TAB PO SCH (09:28)
[2018-01-21] MEDS: sulfaSALAzine 500 MG TAB PO SCH (09:28)
[2018-01-21] MEDS: DABIGATRAN ETEXILATE 150 MG CAP PO SCH (09:28)
[2018-01-21] MEDS: LACTOBACILLUS ACIDOPHILUS TAB PO SCH (09:28)
[2018-01-21] MEDS: predniSONE 20 MG TAB PO SCH (09:28)
[2018-01-21 09:58] LABS: AUTOMATED NEUTROPHIL # 3.3 TH/MM3 (1.8-7.7); BASOPHIL % 0.7 % (0.0-2.0); EOSINOPHIL % 0.9 % (0.0-4.0); HEMATOCRIT 23.9 % (35.0-46.0); HEMOGLOBIN 7.3 GM/DL (11.6-15.3); LYMPHOCYTE # 1.6 TH/MM3 (1.0-4.8); MEAN CELL VOLUME 76.7 FL (80.0-100.0); MEAN CORPUSCULAR HEMOGLOBIN 23.6 PG (27.0-34.0); MEAN CORPUSCULAR HGB CONC 30.7 % (32.0-36.0); MEAN PLATELET VOLUME 6.5 FL (7.0-11.0); MONO % 10.1 % (0.0-8.0); MONOCYTE # 0.6 TH/MM3 (0-0.9); NEUT % 59.3 % (16.0-70.0); PLATELET COUNT 613 TH/MM3 (150-450); RED BLOOD COUNT 3.11 MIL/MM3 (4.00-5.30); RED CELL DISTRIBUTION WIDTH 20.2 % (11.6-17.2); WHITE BLOOD COUNT 5.5 TH/MM3 (4.0-11.0)
[2018-01-21] MEDS: ACETAMINOPHEN 325 MG TAB PO PRN (10:52)
[2018-01-21] MEDS ORDERED: FERR325T18 PO (11:23)
--- NOTE | 2018-01-21 11:27 | HHI.DS ---
Discharge Summary Admission Date Jan 14, 2018 at 18:04 Discharge Date: Jan 21, 2018 Admitting Diagnosis enteric -superficial abscess, colititis (1) Intra-abdominal abscess ICD Code: K65.1 - Peritoneal abscess Diagnosis: Principal Status: Acute Procedures IR drainage with drain placement of intraabdominal abscess. Brief History - From Admission 82-year-old female with a history of pyoderma gangrenosum, ulcerative colitis who presents with a 24 day history of worsening intermittent sharp nonradiating left lower quadrant pain. Patient has been treated with 2 separate 10 day courses of ciprofloxacin with initial improvement however subsequent worsening. Patient experienced nausea yesterday without vomiting. She says she has not felt feverish, however has low-grade temperature upon presentation. Imaging performed today shows left lower quadrant subcutaneous and intra-abdominal abscess. Patient is currently status post IR drainage with drain the left lower quadrant subcutaneous abscess. Patient follows with Dr. Harrell as outpatient for ulcerative colitis. CBC/BMP: 01/21/18 0754 01/19/18 1120 Significant Findings Laboratory Tests Test 01/19/18 00:10 01/19/18 11:20 01/19/18 23:15 01/20/18 04:42 Vancomycin Level Trough 13.4 MCG/ML (5.0-10.0) Red Blood Count 3.94 MIL/MM3 (4.00-5.30) 3.16 MIL/MM3 (4.00-5.30) Hemoglobin 9.3 GM/DL (11.6-15.3) 7.3 GM/DL (11.6-15.3) Hematocrit 30.6 % (35.0-46.0) 24.1 % (35.0-46.0) Mean Corpuscular Volume 77.6 FL (80.0-100.0) 76.2 FL (80.0-100.0) Mean Corpuscular Hemoglobin 23.7 PG (27.0-34.0) 23.2 PG (27.0-34.0) Mean Corpuscular Hemoglobin Concent 30.5 % (32.0-36.0) 30.5 % (32.0-36.0) Red Cell Distribution Width 20.1 % (11.6-17.2) 19.9 % (11.6-17.2) Platelet Count 667 TH/MM3 (150-450) 593 TH/MM3 (150-450) Mean Platelet Volume 6.7 FL (7.0-11.0) 6.5 FL (7.0-11.0) Neutrophils (%) (Auto) 89.3 % (16.0-70.0) Lymphocytes (%) (Auto) 7.1 % (9.0-44.0) Neutrophils # (Auto) 9.3 TH/MM3 (1.8-7.7) Lymphocytes # (Auto) 0.7 TH/MM3 (1.0-4.8) Random Glucose 117 MG/DL (74-106) Chloride Level 110 MEQ/L (98-107) Estimat Glomerular Filtration Rate 81 ML/MIN (>89) Activated Partial Thromboplast Time 48.9 SEC (24.3-30.1) 49.6 SEC (24.3-30.1) Test 01/21/18 07:45 01/21/18 07:54 Red Blood Count 3.11 MIL/MM3 (4.00-5.30) Hemoglobin 7.3 GM/DL (11.6-15.3) Hematocrit 23.9 % (35.0-46.0) Mean Corpuscular Volume 76.7 FL (80.0-100.0) Mean Corpuscular Hemoglobin 23.6 PG (27.0-34.0) Mean Corpuscular Hemoglobin Concent 30.7 % (32.0-36.0) Red Cell Distribution Width 20.2 % (11.6-17.2) Platelet Count 613 TH/MM3 (150-450) Mean Platelet Volume 6.5 FL (7.0-11.0) Monocytes (%) (Auto) 10.1 % (0.0-8.0) Imaging Last Impressions Pelvis CT 01/20/18 0000 Signed Impressions: CONCLUSION: 1. No residual abscess. Abscess Drainage CT 01/14/18 0000 Signed Impressions: CONCLUSION: 1. Uncomplicated CT guided drainage of the superficial aspect of the left pelv is abscess. A total of 30 cc of infected appearing material was removed and sen t for evaluation. 2. If the deeper collection does not improve or resolve following superficial drainage and antibiotic treatment, the patient will return next week for possib le deep drain placement. PE at Discharge GENERAL: Well-appearing, no acute distress, sitting up in chair SKIN: Warm and dry. CARDIOVASCULAR: Regular rate and rhythm without murmurs, gallops, or rubs. RESPIRATORY: Breath sounds equal bilaterally. No accessory muscle use. GASTROINTESTINAL: Abdomen soft, nondistended. Left lower quadrant with dry dressing MUSCULOSKELETAL: No cyanosis, or edema. Hospital Course In summary this is an 82-year-old female patient with a history of pyoderma gangrenosum, ulcerative colitis who presented to [place] ED with several day history of nonradiating left lower quadrant pain. The patient been recently treated with Cipro on 2 separate occasions with minimal improvement of symptoms. In the ED imaging showed left lower quadrant subcutaneous and intra- abdominal abscess. Patient underwent IR drainage with drain placement. Left lower quadrant abscess Met sepsis criteria on admission, currently no leukocytosis (patient is on steroids so immunologic response may be blunted) she is afebrile and lactic acid is 1.8 Colorectal surgery consulted: Follow-up CT no residual abscess, drain removed yesterday. Wound culture with Proteus .Start Augmentin for 5 more days status post Unasyn and vancomycin Added lactobacillus for diarrhea FLex sigmoidoscopy with normal rectosigmoid Ulcerative colitis Pyoderma gangrenosum Continue sulfasalazine and mycophenolate. Wean prednisone to 50 mg daily History of venous insufficiency Echo in 2015 with normal EF Patient's Lasix and spironolactone are currently on hold History of DVT Is on Pradaxa as an outpatient, restarted yesterday status post heparin drip Chronic anemia. Stable and asymptomatic. No signs of bleeding at this time but hemoccult positive from IBD, abscess or fistula transfuse to keep hb > 7 unless active bleeding, patient not keen on receiving blood but agrees on iron pills if indicated DVT prophy: bilat scd GI prophy: protonix 40 mg daily Pt Condition on Discharge: Stable Discharge Disposition: Discharge Home Discharge Time: > 30 minutes Discharge Instructions DIET: Follow Instructions for: Heart Healthy Diet Activities you can perform: Regular-No Restrictions Activities to Avoid: Driving Follow up Referrals: Colorectal Surgery - 1 Week PCP Follow-up - 2-3 Days New Medications: Amoxicillin-Clavulanate (Augmentin) 500-125 mg Tab 500 MG PO Q8H for Infection for 5 Days, TAB 0 Refills Ferrous Sulfate (Ferrous Sulfate) 325 Mg (65 Mg Iron) Tablet 325 MG PO DAILY for Nutritional Supplement, #30 TAB 0 Refills Continued Medications: Dabigatran (Pradaxa) 150 Mg Cap 150 MG PO BID for Blood Clot Prevention, #60 CAP 0 Refills Furosemide (Furosemide) 20 Mg Tab 20 MG PO 3x weekly, #60 TAB 0 Refills Mycophenolate (Mycophenolate) 500 Mg Tab 1000 MG PO BID for Immunosuppression, #120 TAB 0 Refills Pantoprazole (Pantoprazole) 40 Mg Tab 40 MG PO DAILY for Reflux, #30 TAB 0 Refills Prednisone (Prednisone) 10 Mg Tab 10 MG PO DAILY, TAB 0 Refills to take total 15 mg QD till visit with CRS. Has 5 mg prednisone at home Spironolactone (Spironolactone) 25 Mg Tab 25 MG PO 3x weekly, #60 TAB 0 Refills Sulfasalazine (Sulfasalazine) 500 Mg Tab 1000 MG PO BID, #180 TAB 0 Refills Sylvester Reyna MD Jan 21, 2018 11:27
[2018-01-21 12:00] VITALS: BP 148/69; PULSE 68; RESP 16; TEMP 97.8; O2SAT 95
[2018-01-21 12:05] LABS: CALCIUM 8.5 MG/DL (8.5-10.1); CREATININE 0.63 MG/DL (0.50-1.00); MAGNESIUM 1.8 MG/DL (1.5-2.5)
[2018-01-21 12:06] LABS: TOTAL IRON BINDING CAPACITY 231 MCG/DL (250-450)
[2018-01-21 12:40] LABS: % SATURATION IRON PROFILE 6.1 % (20-50); FERRITIN 37 NG/ML (8-252); IRON (FE) 14 MCG/DL (50-170)
[2018-01-21] MEDS ORDERED: AUGM500T7 PO (13:19)
== END 2018-01-21 14:19 | disposition home or self-care (01) | DRG 372 ==
LOC: NEPC 12:31 → NEDA 16:45 → OBSVTOIN 18:04 → N07B 18:16
PROVIDERS: ADMIT Internal Medicine; ATTEND Internal Medicine
PROC: 0W9J30Z Drainage of Pelvic Cavity with Drainage Device, Percutaneous Approach (ICD-10-PCS; principal; 2018-01-14)
PROC: 0DJD8ZZ Inspection of Lower Intestinal Tract, Via Natural or Artificial Opening Endoscopic (ICD-10-PCS; 2018-01-19)
DX: K65.1 Peritoneal abscess (principal); E27.3 Drug-induced adrenocortical insufficiency; K51.90 Ulcerative colitis, unspecified, without complications; L02.211 Cutaneous abscess of abdominal wall; L88 Pyoderma gangrenosum; I87.2 Venous insufficiency (chronic) (peripheral); B96.4 Proteus (mirabilis) (morganii) as the cause of diseases classified elsewhere; D64.9 Anemia, unspecified; T38.0X5A Adverse effect of glucocorticoids and synthetic analogues, initial encounter; I10 Essential (primary) hypertension; Z96.641 Presence of right artificial hip joint; Z86.718 Personal history of other venous thrombosis and embolism
CPT/HCPCS: 72192; 75989; 76937; 80048; 80053; 80202; 81001; 82272; 82533; 82728; 83540; 83550; 83605; 83690; 83735; 85007; 85014; 85018; 85025; 85027; 85610; 85652; 85730; 87040; 87070; 87077; 87186; 87205; 93005; 99285; C1729; J0295; J1644; J2543; J3010; J3370; J7030; J7050; J7512; J7517

== ENCOUNTER 2018-02-01 16:36 | Inpatient (IN) ==
[2018-02-05] MEDS ORDERED: KCL 20 mEq/D5W/LR Inj 1,000 ML ONE (23:31)
[2018-02-06] MEDS ORDERED: Heparin Drip 25,000 UNIT/250 ML BAG IV.CONT ONE
[2018-02-06] MEDS: Ampicillin/Sulbactam Inj 3 GM in Sodium Chloride 0.9% Inj 100 ML IV.SIG SCH ×4 (03:13→20:39)
[2018-02-06] MEDS: KCL 20 mEq/D5W/LR Inj 1,000 ML IV.SIG SCH (04:00)
[2018-02-06] MEDS: Acetaminophen 500 MG Tablet PO PRN ×3 (06:34→23:42)
[2018-02-06] MEDS: predniSONE 10 MG Tablet PO SCH (09:05)
[2018-02-06] MEDS: Ferrous Sulfate 325 MG Tablet PO SCH (09:05)
[2018-02-06] MEDS: sulfaSALAzine 500 MG Tablet PO SCH ×2 (09:30→20:42)
--- NOTE | 2018-02-06 11:58 | P.PN ---
Subjective Interval history: Psoas muscle, s/p CT guided drain x 2 some discomfort Physical Exam Vital signs: Vital Signs 02/06/18 00:00 02/06/18 08:00 Temperature 97.9 F 97.7 F Pulse Rate 64 60 Respiratory Rate 18 16 Blood Pressure 123/59 L 141/65 H Pulse Oximetry 99 99 Intake & Output 02/05/18 02/06/18 02/06/18 18:59 06:59 18:59 Intake Total 240 / 240 100 / 100 Output Total 70 / 70 Balance 170 / 170 100 / 100 Weight 48 kg Intake: IV 100 / 100 Unasyn Inj 3 GM In NS Inj 100 100 / 100 ML @ 200 mls/hr IV.SIG Q6H YUMIKO Rx#:[id number] D5W/LR + KCL 20 mEq Inj 1,000 0 / 0 ML @ 50 mls/hr IV.SIG .Q20H YUMIKO Rx#:[id number] Oral 240 / 240 Output: Wound Drainage 70 / 70 # 1 Left Lower Abdomen 60 / 60 # 2 Right Lower Abdomen 10 / 10 Other: # Voids 3 Narrative: Abdomen benign, tenderness at drain site Results - Labs CBC & Chem 7: 02/05/18 04:12 02/02/18 08:02 Labs: Laboratory Results - last 24 hr 02/02/18 02/03/18 02/03/18 17:14 00:08 07:52 WBC 5.7 RBC 3.73 L Hgb 9.1 L Hct 29.9 L MCV 80.2 MCH 24.4 L MCHC 30.4 L RDW 23.9 H Plt Count 423 MPV 6.5 L Neut % (Auto) 74.5 H Lymph % (Auto) 14.5 [place] % (Auto) 9.2 H Eos % (Auto) 0.8 Baso % (Auto) 1.0 Neut # (Auto) 4.3 Lymph # (Auto) 0.8 L [place] # (Auto) 0.5 Eos # (Auto) 0.0 Baso # (Auto) 0.1 CBC Comment DIFF FINAL APTT 20.8 L D 45.3 H D 02/03/18 02/03/18 02/04/18 07:52 23:09 07:47 WBC 4.6 RBC 3.49 L Hgb 8.5 L Hct 28.2 L MCV 80.7 MCH 24.5 L MCHC 30.4 L RDW 23.7 H Plt Count 388 MPV 7.0 Neut % (Auto) Lymph % (Auto) [place] % (Auto) Eos % (Auto) Baso % (Auto) Neut # (Auto) Lymph # (Auto) [place] # (Auto) Eos # (Auto) Baso # (Auto) CBC Comment APTT 62.6 H D 51.7 H 02/04/18 02/05/18 02/05/18 07:47 04:12 04:12 WBC 4.0 RBC 3.26 L Hgb 8.1 L Hct 26.0 L MCV 79.9 L MCH 24.7 L MCHC 31.0 L RDW 23.4 H Plt Count 406 MPV 6.4 L Neut % (Auto) 64.7 Lymph % (Auto) 23.7 [place] % (Auto) 10.0 H Eos % (Auto) 1.0 Baso % (Auto) 0.6 Neut # (Auto) 2.6 Lymph # (Auto) 0.9 L [place] # (Auto) 0.4 Eos # (Auto) 0.0 Baso # (Auto) 0.0 CBC Comment DIFF FINAL APTT 74.5 H D 47.0 H D 02/05/18 02/06/18 13:21 08:37 WBC RBC Hgb Hct MCV MCH MCHC RDW Plt Count MPV Neut % (Auto) Lymph % (Auto) [place] % (Auto) Eos % (Auto) Baso % (Auto) Neut # (Auto) Lymph # (Auto) [place] # (Auto) Eos # (Auto) Baso # (Auto) CBC Comment APTT 59.6 H D 102.8 H* Assessment and Plan - Assessment (1) Psoas abscess Code(s): K68.12 - Psoas muscle abscess Status: Acute - Plan Continue drainage and antibiotics Will discuss case with Dr. Eng tomorrow
[2018-02-07] MEDS: Ampicillin/Sulbactam Inj 3 GM in Sodium Chloride 0.9% Inj 100 ML IV.SIG SCH ×4 (01:39→19:38)
[2018-02-07] MEDS: KCL 20 mEq/D5W/LR Inj 1,000 ML IV.SIG SCH (01:50)
[2018-02-07] MEDS: Heparin Drip 25,000 UNIT/250 ML BAG IV.CONT PRN (07:41)
[2018-02-07] MEDS: sulfaSALAzine 500 MG Tablet PO SCH ×2 (08:55→19:38)
[2018-02-07] MEDS: predniSONE 10 MG Tablet PO SCH (08:55)
[2018-02-07] MEDS: Spironolactone 25 MG Tablet PO SCH (08:55)
[2018-02-07] MEDS: Ferrous Sulfate 325 MG Tablet PO SCH (08:56)
[2018-02-07] MEDS: Furosemide 20 MG Tablet PO SCH (08:56)
[2018-02-07] MEDS: Acetaminophen 500 MG Tablet PO PRN (14:37)
--- NOTE | 2018-02-07 15:24 | P.DCO ---
- Home Health Nursing Order: Wound care and dressing changes - Certification I have seen patient Shelia Aguilera on 02/07/18. My clinical findings support the need for the requested home health care services because: Limited mobility due to disease progression, Limited ability to care for self I certify that my clinical findings support that this patient is homebound because: Unsafe to leave home unassisted
--- NOTE | 2018-02-07 17:23 | P.PN ---
Subjective Interval history: Psoas abscess, s/p drains much more painful today Physical Exam Vital signs: Vital Signs 02/06/18 20:00 02/07/18 00:00 02/07/18 01:43 Temperature 98.1 F 98.1 F Pulse Rate 70 63 Respiratory Rate 17 17 16 Blood Pressure 128/59 L 167/72 H Pulse Oximetry 98 99 02/07/18 08:00 02/07/18 12:00 02/07/18 13:37 Temperature 98.1 F 97.9 F Pulse Rate 57 L 75 Respiratory Rate 17 17 18 Blood Pressure 159/69 H 134/65 Pulse Oximetry 98 99 Intake & Output 02/06/18 02/07/18 02/07/18 18:59 06:59 18:59 Intake Total 2300 / 2300 1440 / 1440 100 / 100 Output Total 35 / 35 0 / 0 Balance 2265 / 2265 1440 / 1440 100 / 100 Intake: IV 300 / 300 1200 / 1200 100 / 100 Unasyn Inj 3 GM In NS Inj 100 300 / 300 200 / 200 100 / 100 ML @ 200 mls/hr IV.SIG Q6H [facility] Rx#:[id number] D5W/LR + KCL 20 mEq Inj 1,000 0 / 0 1000 / 1000 ML @ 50 mls/hr IV.SIG .Q20H YUMIKO Rx#:[id number] Oral 1999 / 1999 240 / 240 Output: Wound Drainage 35 / 35 0 / 0 # 1 Left Lower Abdomen 30 / 30 0 / 0 # 2 Right Lower Abdomen 5 / 5 0 / 0 Other: # Voids 6 3 Date of Last Bowel Movement 02/06/18 02/06/18 # Bowel Movements 1 Narrative: Abdomen soft, nondistended, tender at drain site cellulitis minimal - Constitutional mild distress - Routine Abdominal Exam Present: soft, tenderness Results - Labs CBC & Chem 7: 02/05/18 04:12 02/02/18 08:02 Laboratory Results - last 24 hr 02/06/18 02/07/18 02/07/18 23:58 05:57 14:50 APTT 49.9 H 52.7 H 49.9 H Assessment and Plan - Assessment (1) Psoas abscess Code(s): K68.12 - Psoas muscle abscess Status: Acute - Plan Continue drainage and antibiotics Will likely need surgery Will rescan in am to eval re increased pain If pain better controlled and scan ok - could go home or stay for surgery early next week Pain meds adjusted
[2018-02-08] MEDS: Ampicillin/Sulbactam Inj 3 GM in Sodium Chloride 0.9% Inj 100 ML IV.SIG SCH ×3 (02:04→19:50)
[2018-02-08] MEDS: sulfaSALAzine 500 MG Tablet PO SCH ×2 (03:43→10:19)
[2018-02-08 08:19] LABS: Baso % (Auto) 0.5 % (0.0-2.0); Eos % (Auto) 0.5 % (0.0-4.0); Hematocrit 27.5 % (35.0-46.0); Hemoglobin 8.5 gm/dL (11.6-15.3); Lymph # (Auto) 0.9 th/mm3 (1.0-4.8); Lymph % (Auto) 18.5 % (9.0-44.0); Mean Corpuscular HGB Conc 31.1 % (32.0-36.0); Mean Corpuscular Hemoglobin 24.7 pg (27.0-34.0); Mean Corpuscular Volume 79.5 fL (80.0-100.0); Mean Platelet Volume 6.9 fL (7.0-11.0); Mono # (Auto) 0.7 th/mm3 (0.0-0.9); Mono % (Auto) 14.6 % (0.0-8.0); Neut # (Auto) 3.1 th/mm3 (1.8-7.7); Neut % (Auto) 65.9 % (16.0-70.0); Platelet Count 455 th/mm3 (150-450); Red Blood Count 3.45 mil/mm3 (4.00-5.30); Red Cell Distribution Width 22.9 % (11.6-17.2); White Blood Count 4.7 th/mm3 (4.0-11.0)
[2018-02-08] MEDS: Ferrous Sulfate 325 MG Tablet PO SCH (10:17)
[2018-02-08] MEDS: predniSONE 10 MG Tablet PO SCH (10:17)
[2018-02-08] MEDS ORDERED: Diatrizoate Meglum/Diatrizoate Sod Liq 9 ML UDC PO ONE (13:00)
--- NOTE | 2018-02-08 14:50 | P.PN ---
Subjective Interval history: Psoas abscess, with fistulae Physical Exam Vital signs: Vital Signs 02/07/18 16:00 02/07/18 20:00 02/07/18 22:48 Temperature 98.3 F 97.8 F Pulse Rate 78 76 Respiratory Rate 18 18 18 Blood Pressure 122/58 L 123/60 Pulse Oximetry 98 95 02/08/18 00:00 02/08/18 08:00 Temperature 98.6 F 98.6 F Pulse Rate 76 71 Respiratory Rate 18 16 Blood Pressure 141/63 H 144/65 H Pulse Oximetry 99 98 Intake & Output 02/07/18 02/08/18 02/08/18 18:59 06:59 18:59 Intake Total 800 / 800 200 / 200 Output Total 60 / 60 Balance 800 / 800 140 / 140 Weight 50.4 kg Intake: IV 200 / 200 200 / 200 Unasyn Inj 3 GM In NS Inj 100 200 / 200 200 / 200 ML @ 200 mls/hr IV.SIG Q6H YUMIKO Rx#:[id number] Oral 600 / 600 Output: Wound Drainage 60 / 60 # 1 Left Lower Abdomen 45 / 45 # 2 Right Lower Abdomen 15 / 15 Other: # Voids 8 2 Date of Last Bowel Movement 02/06/18 # Bowel Movements 1 Narrative: Abdomen soft, nondistended, tender at drain site cellulitis minimal Results - Labs CBC & Chem 7: 02/08/18 07:40 02/02/18 08:02 Laboratory Results - last 24 hr 02/07/18 02/08/18 02/08/18 14:50 07:40 07:40 WBC 4.7 RBC 3.45 L Hgb 8.5 L Hct 27.5 L MCV 79.5 L MCH 24.7 L MCHC 31.1 L RDW 22.9 H Plt Count 455 H MPV 6.9 L Neut % (Auto) 65.9 Lymph % (Auto) 18.5 [place] % (Auto) 14.6 H Eos % (Auto) 0.5 Baso % (Auto) 0.5 Neut # (Auto) 3.1 Lymph # (Auto) 0.9 L [place] # (Auto) 0.7 Eos # (Auto) 0.0 Baso # (Auto) 0.0 WBC Differential . Differential Comment Auto diff final APTT 49.9 H 48.3 H Assessment and Plan - Assessment (1) Psoas abscess Code(s): K68.12 - Psoas muscle abscess Status: Acute - Plan Continue drainage and antibiotics Await repeat CT If no significant change, will plan for surgery Wednesday If worsening, will move forward with surgery sooner.
[2018-02-08 18:33] LABS: Calcium 9.6 mg/dL (8.5-10.1); Carbon Dioxide 24.5 meq/L (21.0-32.0); Potassium 3.7 meq/L (3.5-5.1)
[2018-02-08] MEDS: Heparin Drip 25,000 UNIT/250 ML BAG IV.CONT PRN (18:41)
[2018-02-08] MEDS: KCL 20 mEq/D5W/LR Inj 1,000 ML IV.SIG SCH (19:53)
[2018-02-09] MEDS: Ampicillin/Sulbactam Inj 3 GM in Sodium Chloride 0.9% Inj 100 ML IV.SIG SCH ×5 (02:40→20:25)
[2018-02-09] MEDS: KCL 20 mEq/D5W/LR Inj 1,000 ML IV.SIG SCH ×2 (08:08→14:51)
--- NOTE | 2018-02-09 08:09 | P.PN ---
Subjective Interval history: Psoas muscle still with local pain at drain site Physical Exam Vital signs: Vital Signs 02/08/18 12:00 02/08/18 16:00 02/08/18 20:00 Temperature 99.1 F 98.8 F 98.5 F Pulse Rate 82 68 69 Respiratory Rate 16 20 Blood Pressure 118/60 129/61 148/65 H Pulse Oximetry 99 100 98 02/09/18 00:00 Temperature 98 F Pulse Rate 64 Respiratory Rate 18 Blood Pressure 153/68 H Pulse Oximetry 100 Intake & Output 02/08/18 02/09/18 02/09/18 18:59 06:59 18:59 Intake Total 970 / 970 340 / 340 Balance 970 / 970 340 / 340 Weight 51.2 kg Intake: IV 350 / 350 100 / 100 Heparin/D5W 25,000 U/250 mL 25, 250 / 250 000 unit In 250 ml @ 900 UNITS/ HR 9 mls/hr IV.CONT TITRATE PRN Rx#:[id number] Unasyn Inj 3 GM In NS Inj 100 100 / 100 100 / 100 ML @ 200 mls/hr IV.SIG Q6H [facility]KO Rx#:[id number] Oral 620 / 620 240 / 240 Other: # Voids 4 3 # Bowel Movements 1 Narrative: Abdomen soft, nondistended, tender at drain site cellulitis minimal Results - Labs CBC & Chem 7: 02/08/18 07:40 02/08/18 17:16 Laboratory Results - last 24 hr 02/08/18 02/08/18 02/08/18 07:40 07:40 17:16 WBC 4.7 RBC 3.45 L Hgb 8.5 L Hct 27.5 L MCV 79.5 L MCH 24.7 L MCHC 31.1 L RDW 22.9 H Plt Count 455 H MPV 6.9 L Neut % (Auto) 65.9 Lymph % (Auto) 18.5 [place] % (Auto) 14.6 H Eos % (Auto) 0.5 Baso % (Auto) 0.5 Neut # (Auto) 3.1 Lymph # (Auto) 0.9 L [place] # (Auto) 0.7 Eos # (Auto) 0.0 Baso # (Auto) 0.0 WBC Differential . Differential Comment Auto diff final APTT 48.3 H Sodium 142 Potassium 3.7 Chloride 105 Carbon Dioxide 24.5 Anion Gap 13 BUN 9 Creatinine 0.85 Estimated GFR 78 L Random Glucose 79 Calcium 9.6 - Imaging Impressions Abdomen/Pelvis CT 02/08/18 00:00 CONCLUSION: 1. Interval placement of drainage catheters within the left lower quadrant as detailed above with significant reduction in the fluid collections. 2. Interval development of moderate bilateral hydronephrosis and hydroureter with a well distended urinary bladder. This could relate to a functional bladder obstruction. Assessment and Plan - Assessment (1) Psoas abscess Code(s): K68.12 - Psoas muscle abscess Status: Acute - Plan Continue drainage and antibiotics Repeat CT with urinary retention - place [place] Plan for resection Wednesday
[2018-02-09] MEDS: Spironolactone 25 MG Tablet PO SCH (09:43)
[2018-02-09] MEDS: Furosemide 20 MG Tablet PO SCH (09:43)
[2018-02-09] MEDS: sulfaSALAzine 500 MG Tablet PO SCH ×2 (09:43→20:27)
[2018-02-09] MEDS: Ferrous Sulfate 325 MG Tablet PO SCH (09:44)
[2018-02-09] MEDS: predniSONE 10 MG Tablet PO SCH (09:44)
[2018-02-10] MEDS: Heparin Drip 25,000 UNIT/250 ML BAG IV.CONT PRN (01:42)
[2018-02-10] MEDS: Ampicillin/Sulbactam Inj 3 GM in Sodium Chloride 0.9% Inj 100 ML IV.SIG SCH ×4 (01:42→19:06)
[2018-02-10] MEDS: sulfaSALAzine 500 MG Tablet PO SCH ×4 (01:51→23:48)
[2018-02-10] MEDS: KCL 20 mEq/D5W/LR Inj 1,000 ML IV.SIG SCH (05:39)
[2018-02-10] MEDS: Ferrous Sulfate 325 MG Tablet PO SCH (09:19)
[2018-02-10] MEDS: predniSONE 10 MG Tablet PO SCH (09:19)
--- NOTE | 2018-02-10 12:06 | P.PN ---
Subjective Interval history: Psoas Abscess Physical Exam Vital signs: Vital Signs 02/09/18 16:00 02/10/18 08:00 Temperature 98.4 F 99.2 F Pulse Rate 69 73 Respiratory Rate 20 18 Blood Pressure 158/67 H 142/67 H Pulse Oximetry 99 98 Intake & Output 02/09/18 02/10/18 02/10/18 18:59 06:59 18:59 Intake Total 2400 / 2400 450 / 450 Output Total 90 / 90 760 / 760 Balance 2310 / 2310 -310 / -310 Intake: IV 1200 / 1200 450 / 450 Heparin/D5W 25,000 U/250 mL 25, 250 / 250 000 unit In 250 ml @ 900 UNITS/ HR 9 mls/hr IV.CONT TITRATE PRN Rx#:[id number] Unasyn Inj 3 GM In NS Inj 100 200 / 200 200 / 200 ML @ 200 mls/hr IV.SIG Q6H [facility] Rx#:[id number] D5W/LR + KCL 20 mEq Inj 1,000 1000 / 1000 ML @ 50 mls/hr IV.SIG .Q20H [facility] Rx#:[id number] Oral 1200 / 1200 Output: Urine Amount (Catheter) 750 / 750 Indwelling Urethral Catheter 750 / 750 Straight / Wound Drainage # 1 Left Lower Abdomen Other: # Voids 4 Date of Last Bowel Movement 02/06/18 Narrative: Abdomen soft, nondistended, tender at drain site cellulitis minimal - Urinary Catheter Management Straight Cath placed during this visit: yes Reason for continuing: Acute urinary retention Insertion date: 02/09/18 Insertion time: 10:30 Indwelling Urethral Catheter Cath placed during this visit: no Results - Labs CBC & Chem 7: 02/08/18 07:40 02/08/18 17:16 Laboratory Results - last 24 hr 02/09/18 12:59 APTT 42.5 H Assessment and Plan - Assessment (1) Psoas abscess Code(s): K68.12 - Psoas muscle abscess Status: Acute - Plan Continue drainage and antibiotics Gentle Prep Wednesday Resection Wednesday
[2018-02-11] MEDS: KCL 20 mEq/D5W/LR Inj 1,000 ML IV.SIG SCH (02:05)
[2018-02-11] MEDS: Ampicillin/Sulbactam Inj 3 GM in Sodium Chloride 0.9% Inj 100 ML IV.SIG SCH ×4 (02:48→20:49)
[2018-02-11] MEDS: Spironolactone 25 MG Tablet PO SCH (09:35)
[2018-02-11] MEDS: sulfaSALAzine 500 MG Tablet PO SCH ×2 (09:36→20:48)
[2018-02-11] MEDS: Ferrous Sulfate 325 MG Tablet PO SCH (09:37)
[2018-02-11] MEDS: predniSONE 10 MG Tablet PO SCH (09:37)
[2018-02-11] MEDS: Furosemide 20 MG Tablet PO SCH (09:37)
--- NOTE | 2018-02-11 16:49 | P.PN ---
Subjective Interval history: Psoas abscess, colitis, possible Crohn's disease Physical Exam Vital signs: Vital Signs 02/10/18 20:00 02/11/18 00:00 02/11/18 08:00 Temperature 98.7 F 98.6 F 99.2 F Pulse Rate 88 81 74 Respiratory Rate 15 15 16 Blood Pressure 125/62 137/65 125/59 L Pulse Oximetry 99 95 95 02/11/18 12:00 Temperature 98.7 F Pulse Rate 78 Respiratory Rate 16 Blood Pressure 119/59 L Pulse Oximetry 98 Intake & Output 02/10/18 02/11/18 02/11/18 18:59 06:59 18:59 Intake Total 2680 / 2680 680 / 680 100 / 100 Output Total 700 / 700 1535 / 1535 Balance 1979 / 1979 -855 / -855 100 / 100 Weight 51.6 kg Intake: IV 1200 / 1200 200 / 200 100 / 100 Unasyn Inj 3 GM In NS Inj 100 200 / 200 200 / 200 100 / 100 ML @ 200 mls/hr IV.SIG Q6H [facility] Rx#:[id number] D5W/LR + KCL 20 mEq Inj 1,000 1000 / 1000 ML @ 50 mls/hr IV.SIG .Q20H [facility] Rx#:[id number] Oral 980 / 980 480 / 480 Other 500 / 500 Output: Urine 700 / 700 1500 / 1500 Wound Drainage 35 / 35 # 1 Left Lower Abdomen 15 / 15 # 2 Right Lower Abdomen 20 / 20 Other: Other Intake Source Saline Solution # Bowel Movements 1 0 Narrative: Abdomen soft, nondistended, tender at drain site purulence draining around drain - Urinary Catheter Management Straight Cath placed during this visit: yes Reason for continuing: Acute urinary retention Insertion date: 02/09/18 Insertion time: 10:30 Indwelling Urethral Catheter Cath placed during this visit: no Reason for continuing: Acute urinary retention Results - Labs CBC & Chem 7: 02/08/18 07:40 02/08/18 17:16 Laboratory Results - last 24 hr 02/11/18 02/11/18 00:39 08:40 APTT 42.0 H 40.2 H Assessment and Plan - Assessment (1) Psoas abscess Code(s): K68.12 - Psoas muscle abscess Status: Acute - Plan Discussed drainage with Dr. Eng, he will resume irrigation of drains Continue antibiotics Gentle Prep Wednesday Resection Wednesday
[2018-02-12] MEDS: Ampicillin/Sulbactam Inj 3 GM in Sodium Chloride 0.9% Inj 100 ML IV.SIG SCH ×4 (03:13→21:39)
[2018-02-12] MEDS: KCL 20 mEq/D5W/LR Inj 1,000 ML IV.SIG SCH (09:06)
[2018-02-12] MEDS: predniSONE 10 MG Tablet PO SCH (09:07)
[2018-02-12] MEDS: Ferrous Sulfate 325 MG Tablet PO SCH (09:07)
[2018-02-12] MEDS: sulfaSALAzine 500 MG Tablet PO SCH ×2 (09:14→21:30)
--- NOTE | 2018-02-12 10:38 | P.PNCS ---
Subjective Interval history: C/R Surg alert sundeep PO drains min Objective Vital Signs/Intake & Output: Vital Signs 02/12/18 00:00 Temperature 97.6 F Pulse Rate 70 Respiratory Rate 18 Blood Pressure 115/56 L Pulse Oximetry 100 Intake & Output Result Diagrams: 02/08/18 07:40 02/08/18 17:16 Laboratory Results: Laboratory Results - last 24 hr 02/12/18 03:48 APTT 37.3 H Medications: Active Medications Objective Remarks: PE alert Abd - soft, woody, non-tender Assessment and Plan - Assessment (1) Psoas abscess Code(s): K68.12 - Psoas muscle abscess Status: Acute - Plan Imp: stable, cont wound suction OOB bowel prep, hydration
[2018-02-12] MEDS: Heparin Drip 25,000 UNIT/250 ML BAG IV.CONT PRN (21:40)
[2018-02-13] MEDS: Ampicillin/Sulbactam Inj 3 GM in Sodium Chloride 0.9% Inj 100 ML IV.SIG SCH ×4 (02:04→20:34)
[2018-02-13] MEDS: KCL 20 mEq/D5W/LR Inj 1,000 ML IV.SIG SCH (09:01)
[2018-02-13] MEDS: Furosemide 20 MG Tablet PO SCH (09:04)
[2018-02-13] MEDS: sulfaSALAzine 500 MG Tablet PO SCH ×2 (09:04→20:35)
[2018-02-13] MEDS: predniSONE 10 MG Tablet PO SCH (09:04)
[2018-02-13] MEDS: Ferrous Sulfate 325 MG Tablet PO SCH (09:04)
[2018-02-13] MEDS: Spironolactone 25 MG Tablet PO SCH (09:04)
--- NOTE | 2018-02-13 12:01 | P.PNCS ---
Subjective Interval history: No changes. Drainage is dark in bag but white pus and induration is local. Pain is local. No abdominal pain. Objective Vital Signs/Intake & Output: Vital Signs 02/12/18 12:00 02/12/18 16:00 02/12/18 20:00 Temperature 98.2 F 97.8 F Pulse Rate 72 69 Respiratory Rate 18 18 16 Blood Pressure 130/66 122/60 Pulse Oximetry 99 97 02/12/18 20:13 02/13/18 00:11 02/13/18 08:00 Temperature 98.6 F 99.9 F H 101.1 F H Pulse Rate 77 71 85 Respiratory Rate 16 16 16 Blood Pressure 120/60 150/68 H 127/58 L Pulse Oximetry 99 96 93 L 02/13/18 10:20 Temperature 98.5 F Pulse Rate Respiratory Rate Blood Pressure Pulse Oximetry Intake & Output 02/12/18 02/13/18 02/13/18 18:59 06:59 18:59 Intake Total 100 / 100 1680 / 1680 200 / 200 Output Total 80 / 80 Balance 20 / 20 1680 / 1680 200 / 200 Weight 51.6 kg Intake: IV 100 / 100 1100 / 1100 200 / 200 Unasyn Inj 3 GM In NS Inj 100 100 / 100 100 / 100 200 / 200 ML @ 200 mls/hr IV.SIG Q6H [facility] Rx#:[id number] D5W/LR + KCL 20 mEq Inj 1,000 1000 / 1000 ML @ 50 mls/hr IV.SIG .Q20H [facility] Rx#:[id number] Oral 580 / 580 Output: Wound Drainage 80 / 80 # 1 Left Lower Abdomen 50 / 50 # 2 Right Lower Abdomen 30 / 30 Other: # Voids 3 Date of Last Bowel Movement 02/06/18 Result Diagrams: 02/08/18 07:40 02/08/18 17:16 Laboratory Results: Laboratory Results - last 24 hr 02/13/18 07:00 APTT 36.8 H Medications: Active Medications Ferrous Sulfate (Ferosul) 325 mg PO DAILY [facility] Last Admin: 02/13/18 09:04 Dose: 325 mg Furosemide (Lasix) 20 mg PO EVERY OTHER DAY [facility] Last Admin: 02/13/18 09:04 Dose: 20 mg Potassium Cl/Dextrose/Lact Ringer's (D5w/Lr + Kcl 20 Meq Inj) 1,000 mls @ 50 mls/hr IV.SIG .Q20H [facility] Last Admin: 02/13/18 09:01 Dose: 50 mls/hr Heparin Sodium/Dextrose (Heparin/D5w 25,000 U/250 Ml) 25,000 unit in 250 mls @ 9 mls/hr IV.CONT TITRATE PRN; Protocol PRN Reason: Per Protocol Last Admin: 02/12/18 21:40 Dose: 800 units/hr, 8 mls/hr Ampicillin Sodium/Sulbactam (Sodium 3 gm/ Sodium Chloride) 100 mls @ 200 mls/ hr IV.SIG Q6H [facility] Last Infusion: 02/13/18 10:38 Dose: Infused Oxycodone/Acetaminophen (Percocet 5/325 Mg) 1 tab PO Q3H PRN PRN Reason: PAIN SCALE 1 TO 10 Last Admin: 02/13/18 09:05 Dose: 1 tab Pantoprazole Sodium (Protonix) 40 mg PO DAILY [facility] Last Admin: 02/13/18 09:04 Dose: 40 mg Polyethylene Glycol/Electrolytes (Colyte Liq) 0 ml PO ONCE ONE Stop: 02/13/18 13:01 Prednisone (Deltasone) 10 mg PO DAILY [facility] Last Admin: 02/13/18 09:04 Dose: 10 mg Sodium Chloride (Ns Inj) 5 ml IRRIGATION DAILY [facility] Last Admin: 02/13/18 09:05 Dose: 5 ml Sodium Chloride (Ns Inj) 5 ml IRRIGATION DAILY [facility] Last Admin: 02/13/18 09:05 Dose: 5 ml Sodium Chloride (Ns Flush) 2 ml IV.FLUSH UNSCH PRN PRN Reason: FLUSH AFTER USING IV ACCESS Last Admin: 02/12/18 09:08 Dose: 2 ml Spironolactone (Aldactone) 25 mg PO EVERY OTHER DAY [facility] Last Admin: 02/13/18 09:04 Dose: 25 mg Sulfasalazine (Azulfidine) 1,000 mg PO BID [facility] Last Admin: 02/13/18 09:04 Dose: 1,000 mg Objective Remarks: VS-S Abd: soft,nontender. Drain site with mild cellulitis and induration and white pus. I&Os:OK Assessment and Plan - Assessment (1) Psoas abscess Code(s): K68.12 - Psoas muscle abscess Status: Acute - Plan Colyte today. Local debridement and possible laparotomy. May debride 1st and plan interval laparotomy. Will almost certainly require sigmoid resection and colostomy if laparotomy is done. Discussed Condition With: Daughters and patient extensively
[2018-02-13] MEDS ORDERED: PEG 3350/E-Lyte Soln 4000 ML Bottle PO ONE (13:00)
[2018-02-13 14:40] LABS: Baso % (Auto) 0.4 % (0.0-2.0); Eos % (Auto) 0.1 % (0.0-4.0); Hematocrit 31.5 % (35.0-46.0); Hemoglobin 9.7 gm/dL (11.6-15.3); Lymph # (Auto) 0.6 th/mm3 (1.0-4.8); Lymph % (Auto) 7.1 % (9.0-44.0); Mean Corpuscular Hemoglobin 24.8 pg (27.0-34.0); Mean Corpuscular Volume 80.1 fL (80.0-100.0); Mean Platelet Volume 6.3 fL (7.0-11.0); Mono # (Auto) 0.7 th/mm3 (0.0-0.9); Mono % (Auto) 7.9 % (0.0-8.0); Neut # (Auto) 7.7 th/mm3 (1.8-7.7); Neut % (Auto) 84.5 % (16.0-70.0); Platelet Count 625 th/mm3 (150-450); Red Blood Count 3.93 mil/mm3 (4.00-5.30); White Blood Count 9.1 th/mm3 (4.0-11.0)
[2018-02-13 14:53] LABS: Mean Corpuscular HGB Conc 30.9 % (32.0-36.0)
[2018-02-13 15:04] LABS: Carbon Dioxide 26.9 meq/L (21.0-32.0); Potassium 3.7 meq/L (3.5-5.1)
[2018-02-14] MEDS: KCL 20 mEq/D5W/LR Inj 1,000 ML IV.SIG SCH ×2 (01:01→12:24)
[2018-02-14] MEDS: Ampicillin/Sulbactam Inj 3 GM in Sodium Chloride 0.9% Inj 100 ML IV.SIG SCH ×4 (02:20→21:24)
[2018-02-14] MEDS: Heparin Drip 25,000 UNIT/250 ML BAG IV.CONT PRN (02:37)
[2018-02-14] MEDS: Ferrous Sulfate 325 MG Tablet PO SCH (09:20)
[2018-02-14] MEDS: predniSONE 10 MG Tablet PO SCH (09:20)
[2018-02-14] MEDS: sulfaSALAzine 500 MG Tablet PO SCH (09:20)
[2018-02-14] MEDS ORDERED: Succinylcholine Inj 100 MG/5 ML Syringe IV.PUSH ONE (12:00)
[2018-02-14] MEDS ORDERED: Phenylephrine/NS 1000 MCG/10ML Syringe IV.PUSH ONE (12:00)
[2018-02-14] MEDS ORDERED: Esmolol Bolus Inj 100 MG/10 ML Vial IV.PUSH ONE (12:00)
[2018-02-14] MEDS ORDERED: Lidocaine PF 1% Inj 5 ML Syringe INFILTRATN ONE (12:00)
[2018-02-14] MEDS ORDERED: Metoprolol Tartrate 25 MG Tablet PO SCH ×2 (14:30→15:15)
[2018-02-14] MEDS ORDERED: Chlorhexidine Gluconate 2% 1 Pack (2 Cloths) TOPICAL SCH ×2 (14:30→15:15)
[2018-02-14] MEDS ORDERED: Dexmedetomidine Inj 200 MCG/2 ML Vial ONE (14:45)
[2018-02-14] MEDS ORDERED: Sodium Chlor 0.9% Inj 500 ML IV.SIG SCH (16:00)
--- NOTE | 2018-02-14 16:38 | P.OP ---
- Preoperative Diagnosis (1) Psoas abscess - Postoperative Diagnosis (1) Psoas abscess Date of procedure: 02/14/18 Procedure: Urologic surgery procedures: Cystoscopy and placement of bilateral ureteral catheters. Anesthesia: GETA Surgeon: Jeffry Beltre MD Operation and Findings: Indication for urologic procedures: Consulted intraoperatively to pass bilateral ureteral catheters to aid in visualization of this patient's ureters during her colorectal procedure. Urologic surgery procedures in detail: Concurrent with the colorectal surgeons, I proceeded with cystoscopy and placement of bilateral ureteral catheters. Initially cystoscopic evaluation was performed utilizing the rigid cystoscope with a 22 Iranian sheath and 30 lens. The patient was noted to have complete prolapse of the urinary bladder and this was manually reduced and held in place with gauze placed within the vaginal vault. There were no bladder mucosal lesions, calculi or diverticula formation noted. There are no areas suspicious for fistula formation. I proceeded with passing a sensor 0.035 wire up the patient's left ureter until a small amount of resistance was met. I then placed a 6 Iranian open-ended ureteral catheter 25 cm in a cephalad direction over the wire. Once the catheter was in place, the wire was withdrawn and reintroduced through secondary site via the cystoscope. In similar fashion the contralateral side was accomplished. A 16 Iranian 10 cc Villatoro catheter was placed in both ureteral catheters were anchored to the Villatoro via a connector. All 3 catheters were then placed to gravity drainage. The vaginal packing was then removed. This completes the urologic surgery portion of combined procedures on this patient.
[2018-02-14 17:40] LABS: Baso % (Auto) 0.3 % (0.0-2.0); Hematocrit 24.1 % (35.0-46.0); Hemoglobin 7.6 gm/dL (11.6-15.3); Lymph # (Auto) 0.4 th/mm3 (1.0-4.8); Lymph % (Auto) 5.4 % (9.0-44.0); Mean Corpuscular HGB Conc 31.4 % (32.0-36.0); Mean Corpuscular Hemoglobin 25.4 pg (27.0-34.0); Mean Corpuscular Volume 80.8 fL (80.0-100.0); Mono # (Auto) 0.4 th/mm3 (0.0-0.9); Mono % (Auto) 4.6 % (0.0-8.0); Neut # (Auto) 7.4 th/mm3 (1.8-7.7); Neut % (Auto) 89.7 % (16.0-70.0); Platelet Count 440 th/mm3 (150-450); Red Blood Count 2.98 mil/mm3 (4.00-5.30); Red Cell Distribution Width 22.1 % (11.6-17.2); White Blood Count 8.2 th/mm3 (4.0-11.0)
[2018-02-14] MEDS ORDERED: Sugammadex Inj 200 MG/2 ML Vial IV.PUSH ONE (18:39)
[2018-02-14] MEDS ORDERED: Potassium Chlor 20 mEq Premix 20 MEQ/100 ML PIGGYBACK IV.SIG PRN (19:27)
[2018-02-14] MEDS ORDERED: Zolpidem Tartrate 5 MG Tablet PO PRN (19:27)
[2018-02-14] MEDS ORDERED: Potassium Chlor 40 mEq Premix 40 MEQ/100 ML PIGGYBACK IV.SIG PRN (19:27)
[2018-02-14] MEDS ORDERED: fentaNYL Citrate Inj 100 MCG/2 ML Ampul ONE (19:36)
[2018-02-14] MEDS ORDERED: *morphine SULFATE 4 MG/ML PERIprocedure ONLY ONE ×2 (19:40→20:07)
--- NOTE | 2018-02-14 19:42 | XR ---
EXAM DATE: 02/14/2018 7:37 PM EDT AGE/SEX: 82 years / Female INDICATIONS: Evaluate central line placement CLINICAL DATA: This is the patient's initial encounter. Patient reports that signs and symptoms have been present for 3 days and indicates a pain score of Nonresponsive. MEDICAL/SURGICAL HISTORY: Non-responsive. Non-responsive. [place]PAR[place] [facility] [place]. . FINDINGS: There is a right internal jugular central line in place with the tip overlying the SVC. The heart siz e is normal. There is minimal increased density at the left base. The right lung is clear. A pneumoth orax is not seen. There does appear to be a possible drainage tube seen over the left mid abdomen. Sk in andrea are seen in the midline of the abdomen. CONCLUSION: Right internal jugular central line in good position. Mild atelectasis or consolidation at the left base. Electronically signed by: Aj Fabian MD 02/14/2018 7:41 PM EDT
[2018-02-14 20:17] LABS: Baso % (Auto) 0.6 % (0.0-2.0); Hematocrit 23.1 % (35.0-46.0); Hemoglobin 7.2 gm/dL (11.6-15.3); Lymph # (Auto) 0.4 th/mm3 (1.0-4.8); Lymph % (Auto) 5.3 % (9.0-44.0); Mean Corpuscular HGB Conc 31.2 % (32.0-36.0); Mean Corpuscular Hemoglobin 24.9 pg (27.0-34.0); Mean Corpuscular Volume 79.8 fL (80.0-100.0); Mean Platelet Volume 6.2 fL (7.0-11.0); Mono # (Auto) 0.4 th/mm3 (0.0-0.9); Mono % (Auto) 5.1 % (0.0-8.0); Platelet Count 473 th/mm3 (150-450); Red Cell Distribution Width 22.1 % (11.6-17.2); White Blood Count 7.9 th/mm3 (4.0-11.0)
[2018-02-14 20:22] LABS: Anion Gap 12 meq/L (5-15); Blood Urea Nitrogen 9 mg/dL (7-18); Calcium 8.4 mg/dL (8.5-10.1); Carbon Dioxide 23.9 meq/L (21.0-32.0); Chloride 106 meq/L (98-107); Glomerular Filtration Rate Greater Than 89 mL/min (>89); Glucose,Random 161 mg/dL (74-106); Potassium 3.2 meq/L (3.5-5.1); Sodium 142 meq/L (136-145)
[2018-02-14] MEDS ORDERED: *morphine SULFATE 10 MG/ML PERIprocedure ONLY ONE (20:22)
[2018-02-14] MEDS ORDERED: Morphine Inj 30 MG/30 ML PCA.VIAL PCA ONE (20:27)
[2018-02-14] MEDS ORDERED: KCL 20 mEq/D5W/LR Inj 1,000 ML ONE (20:27)
[2018-02-14] MEDS: KCL 20 mEq/D5W/LR Inj 1,000 ML IV.CONT SCH (20:38)
[2018-02-14] MEDS ORDERED: HYDROmorphone PF Inj 2 MG/ML Vial ONE (21:28)
[2018-02-14] MEDS ORDERED: Labetalol HCl Inj 100 MG/20 ML Vial ONE (21:43)
[2018-02-14] MEDS: Hydrocortisone Sod Succinate 100 MG Vial IV.PUSH SCH (21:47)
--- NOTE | 2018-02-14 22:03 | MP ---
cc: Aj Harrell MD, DATE OF OPERATION: 02/14/2018 PREOPERATIVE DIAGNOSES: 1. Left pelvic abscess and subcutaneous wall abscess. 2. Colocutaneous fistula. POSTOPERATIVE DIAGNOSES: 1. Left pelvic abscess and subcutaneous wall abscess. 2. Colocutaneous fistula. PROCEDURES PERFORMED: 1. Debridement of left lower quadrant abdominal wall abscess. 2. Full left colectomy, with low anterior resection. 3. Small bowel resection. 4. Diverting loop ileostomy. 5. Mobilization of splenic flexure. 6. Omental flap. 7. Intraoperative colonoscopy. SURGEON: Aj Harrell MD BEE RAISER: Dr. Landers ANESTHESIA: General endotracheal. ESTIMATED BLOOD LOSS: 300 cc. OPERATING TIME: Two hours and 40 minutes. OPERATIVE FINDINGS: This patient was admitted to the hospital first about a month ago with a pelvic abscess, near the iliac and psoas muscles, just up out of the true pelvis near her sigmoid colon. This abscess was drained and after 6 days, the drainage tube was removed and the abscess was apparently gone. About 12 days later, she was readmitted to the hospital with a recurrent abscess, with pus draining from the subcutaneous drainage tube site. Again, she was admitted to the hospital and underwent CT-guided drainage with interventional radiology, first draining the intra-abdominal component and then draining the subcutaneous component. She had minimal drainage from these drainage tubes and the collection appeared gone on a study about 6 days prior to surgery, but she continued to have feculent appearing drainage around the tube and through the tube in small amounts. For this reason, a debridement of the abdominal wall was planned, as well as possible laparotomy and resection. 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 The CellCept has been discontinued for approximately 2 weeks since this admission and her prednisone had been weaned to 10 mg a day. It was felt that this abscess was either due to Crohn's disease or simply a ruptured diverticula. Upon opening the specimen after resection, there was no evidence of Crohn's disease in the small bowel or the colon. There was also no firm evidence of active diverticulitis, although there appeared to be a diverticula that was stuck to her small bowel with fistula tract. She also had another loop of proximal small bowel, still jejunum, stuck down into the pelvis against the colonic process in the left side. The left colonic process was firmly attached to her retroperitoneum, specifically her psoas muscle and the drainage tract extended down just lateral to the psoas muscle. OPERATIVE TECHNIQUE: The patient was placed on the table in the supine position. After adequate general endotracheal anesthesia, legs were placed in the perineal lithotomy position and the abdomen and perineum were prepped and draped in the usual manner. Dr. Kali Beltre did cystoscopy and placed bilateral ureteral catheters and he will dictate his portion of the procedure. After the abdomen was prepped and draped in the usual manner, our attention was turned to the left groin wound, where the 2 drainage catheters were placed and the skin and subcutaneous tissue was excised from around the drainage catheters and the drainage catheters were removed. The subcutaneous tissue right near her iliac crest and left groin region was excised and this was quite inflammatory, with yellow thin stool-like bowel prep material coming from the drain sites and around the drain sites. This was fully debrided and curetted of all loose granulation tissue and then packed with Ray-Baylee sponges. Because of these findings, a laparotomy was planned and a midline incision was made from the pubis to the xiphoid to the linea alba and the peritoneal cavity was entered. The small bowel was mildly dilated with air, probably from her bowel prep and there was some ascites in the abdomen, which was aspirated. The loop of small bowel, discussed above was proximal jejunum just distal to the ligament of Treitz and it was stuck down to the colon, at what appeared to be diverticulum. This was dissected free and the diverticulum was leaking stool after this dissection and was closed with interrupted 3-0 Vicryl [id number]. It was ascertained that the small bowel also contained a fistula and, for this reason, it was ultimately resected. Distal to this area of small bowel was a longer area of small bowel, still jejunum, which was stuck to the colonic process as well and this was dissected free, making a serosal tear, but no enterotomy was created. This was contained in the small bowel resection and was approximately 6 inches from the other fistula hole. This was resected and it was just distal to the ligament of Treitz, where the small bowel was divided proximally and distally, resected and the mesentery was clamped, cut and ligated, and the anastomosis was created with an Ethicon JULIÁN 55 stapling device, and the enterotomy was closed with a TX 60 green staple stapling device. The mesentery was closed with 3-0 Vicryl running suture. The colonic process was densely hard and woody, stuck to the left psoas muscle and left upper pelvis and was dissected free with electrocautery and sharp dissection. A loop of transverse colon dipped low towards this area and was stuck to a descending colon just above this area and it was determined that this was also a fistula between these 2 areas. This made it suspicious for Crohn's disease. Nevertheless, this sigmoid colon was mobilized up off of the psoas muscle and the cavity where the drainage catheters had been placed and tracked lateral to the psoas muscle was opened and ultimately a flat Scotty drain was placed in this cavity and brought out through a separate stab wound on the left side. The left and right ureters were identified and protected at all times. Once the sigmoid colon and descending colon was mobilized, the transverse colon was likewise mobilized with the omentum, which was quite thin given her lack of body fat and it was dissected free of the transverse colon. It was ultimately used to cover the left psoas abscess region and around the anastomosis distally. The inferior mesenteric artery was doubly clamped, cut and doubly ligated with 0 Vicryl ligature and the inferior mesenteric vein was likewise clamped, cut and ligated. The left colic vessels were likewise clamped, cut and ligated and the dissection was taken right up to the middle colic vessels and the marginal vessels. Since there was this distal transverse colon fistula to the descending colon, the point of resection was chosen just proximal to that. That area of the colonic mesocolon was clamped, cut and ligated and the bowel was divided after placing a pursestring stapling device. Next, our attention was turned to the lateral pelvic peritoneum and was incised bilaterally and the retrorectal space was mobilized down to the pelvic floor. The rectum and the colon was then visualized by Dr. Landers with the colonoscope and appeared to be normal, without any evidence of colitis, either ulcerative colitis or Crohn's disease. Because the rectum was normal and suitable for anastomosis, the mesorectum was successively clamped, cut and ligated at the upper rectum, and the pursestring stapling device was placed and the rectum was divided. The specimen was then removed from the table. The caliber of the colon was large and, therefore, an Ethicon 33 EEA anvil was placed in the proximal bowel and the pursestring was tied and then Dr. Landers went below and placed the EEA instrument transanally and the distal pursestring was tied and the instrument was connected, closed and fired, creating the circular anastomosis. Dr. Landers then did a colonoscopy to the cecum. There was a small 7-8 mm polyp in the cecum and it was left alone. Otherwise, there was no evidence of any colitis and certainly no carcinomas. We then leak tested the anastomosis with saline solution in the pelvis and Dr. Landers insufflating air into the rectosigmoid and no air leaks were identified. There was no tension on the anastomosis and the blood supply was excellent. Next, the abdominal cavity and pelvis were irrigated thoroughly with saline solution, aspirated dry with several liters of saline solution used for irrigation. Hemostasis was maintained throughout with electrocautery and ligature. A flat Scotty drain was placed through a right lower quadrant separate stab wound and placed in the pelvis in the retrorectal space and the other Scotty drain was placed in the left psoas abscess cavity as mentioned above. The omentum was placed on the left colic gutter over the psoas abscess and into the pelvis around the anastomosis, although there was not a large quantity of omentum. A diverting loop ileostomy was then created in the right lower quadrant, brought out through a separate stoma site made in the right upper quadrant. The small bowels were replaced in the abdominal cavity in an cartography technician manner and then the abdominal cavity was closed with a single double stranded #1 PDS for the linea alba, pexing the bladder up to help prevent her urinary retention. Also, the uterus was pexed up to the backside of the abdominal wall with interrupted 3-0 Vicryl sutures. Hopefully, this will help prevent more of her uterine prolapse and enterocele. The remainder of the abdominal incision was closed, and the subcutaneous tissue was irrigated thoroughly with saline solution and the skin was closed with skin andrea. The left groin wound was once again irrigated thoroughly with saline solution and repacked with 4 x 4 gauzes and an OpSite was placed over that wound. The ileostomy was matured with interrupted 3-0 Vicryl sutures in a looped fashion with a TX 60 stapler used to fully exclude the distal limb to prevent any spillage into the colon. A 57 mm appliance was placed on the stoma and dressings were applied. Sponge, needle and instrument counts were reported as correct. The estimated blood loss was 300 mL. Operating time was 2 hours and 40 minutes. The patient tolerated the procedure well and left the operating room in good condition. MD CORI Ziegler/BARON , 08:12 PM , 10:02 PM
[2018-02-15] MEDS: Ampicillin/Sulbactam Inj 3 GM in Sodium Chloride 0.9% Inj 100 ML IV.SIG SCH ×4 (02:51→21:40)
[2018-02-15] MEDS: Hydrocortisone Sod Succinate 100 MG Vial IV.PUSH SCH ×3 (05:47→21:49)
[2018-02-15 08:44] LABS: Baso # (Auto) 0.1 th/mm3 (0.0-0.2); Baso % (Auto) 0.5 % (0.0-2.0); Hematocrit 33.5 % (35.0-46.0); Hemoglobin 10.8 gm/dL (11.6-15.3); Lymph # (Auto) 0.2 th/mm3 (1.0-4.8); Mean Corpuscular HGB Conc 32.1 % (32.0-36.0); Mean Corpuscular Hemoglobin 25.5 pg (27.0-34.0); Mean Corpuscular Volume 79.5 fL (80.0-100.0); Mean Platelet Volume 6.2 fL (7.0-11.0); Mono # (Auto) 0.6 th/mm3 (0.0-0.9); Mono % (Auto) 3.6 % (0.0-8.0); Neut # (Auto) 16.3 th/mm3 (1.8-7.7); Neut % (Auto) 94.9 % (16.0-70.0); Platelet Count 483 th/mm3 (150-450); Red Blood Count 4.22 mil/mm3 (4.00-5.30); Red Cell Distribution Width 22.4 % (11.6-17.2); White Blood Count 17.2 th/mm3 (4.0-11.0)
[2018-02-15 09:09] LABS: Calcium 8.8 mg/dL (8.5-10.1); Carbon Dioxide 24.9 meq/L (21.0-32.0); Potassium 3.5 meq/L (3.5-5.1)
[2018-02-15] MEDS: Pantoprazole Inj 40 MG Vial IV.PUSH SCH (10:19)
--- NOTE | 2018-02-15 13:56 | P.PNCS ---
Subjective Interval history: No N or V. No BMs from Ileostomy. Using [employer]. C/O back pain. Sitting in chair. Objective Vital Signs/Intake & Output: Vital Signs 02/14/18 19:21 02/14/18 19:30 02/14/18 19:45 Temperature 93.8 F L Pulse Rate 57 L 59 L 60 Respiratory Rate 19 15 16 Blood Pressure 138/65 142/63 H 133/65 Pulse Oximetry 98 100 100 02/14/18 20:00 02/14/18 20:15 02/14/18 20:30 Temperature Pulse Rate 62 64 67 Respiratory Rate 16 16 12 Blood Pressure 167/69 H 152/73 H 150/75 H Pulse Oximetry 100 100 100 02/14/18 20:45 02/14/18 21:00 02/14/18 21:15 Temperature 96.4 F L Pulse Rate 71 73 73 Respiratory Rate 12 16 14 Blood Pressure 169/82 H 183/83 H 193/91 H Pulse Oximetry 100 100 100 02/14/18 21:30 02/14/18 21:45 02/14/18 22:00 Temperature 97.4 F L Pulse Rate 78 81 64 Respiratory Rate 11 L 13 15 Blood Pressure 192/92 H 189/91 H 161/77 H Pulse Oximetry 100 100 100 02/14/18 22:15 02/14/18 22:30 02/14/18 23:00 Temperature 98.3 F Pulse Rate 66 70 74 Respiratory Rate 14 15 Blood Pressure 185/90 H 179/85 H Pulse Oximetry 100 100 02/14/18 23:43 02/15/18 00:00 02/15/18 00:04 Temperature 98 F 98.1 F Pulse Rate 80 83 80 Respiratory Rate 15 15 Blood Pressure 175/87 H 170/96 H Pulse Oximetry 100 99 02/15/18 00:20 02/15/18 00:40 02/15/18 01:00 Temperature 97.8 F 98.6 F Pulse Rate 83 80 84 Respiratory Rate 16 14 Blood Pressure 171/93 H 171/90 H Pulse Oximetry 99 99 02/15/18 02:00 02/15/18 02:44 02/15/18 03:00 Temperature 99.1 F Pulse Rate 90 89 90 Respiratory Rate 16 Blood Pressure 176/92 H Pulse Oximetry 99 02/15/18 03:36 02/15/18 03:53 02/15/18 04:00 Temperature 99 F 98.6 F Pulse Rate 93 H 90 91 H Respiratory Rate 16 16 Blood Pressure 180/96 H 170/92 H Pulse Oximetry 99 99 02/15/18 04:13 02/15/18 04:47 02/15/18 05:00 Temperature 98.6 F 98.3 F Pulse Rate 94 H 95 H 98 H Respiratory Rate 16 14 Blood Pressure 171/97 H 183/92 H Pulse Oximetry 98 99 02/15/18 05:35 02/15/18 06:00 02/15/18 08:00 Temperature 98.7 F Pulse Rate 92 H 100 H 110 H Respiratory Rate 18 Blood Pressure 185/87 H 172/85 H 168/94 H Pulse Oximetry 02/15/18 10:39 Temperature Pulse Rate Respiratory Rate Blood Pressure Pulse Oximetry 96 Intake & Output 02/14/18 02/15/18 02/15/18 18:59 06:59 18:59 Intake Total 3500 / 3500 400 / 400 100 / 100 Output Total 650 / 650 1760 / 1760 Balance 2850 / 2850 -1360 / -1360 100 / 100 Weight 54.4 kg Intake: IV 1500 / 1500 400 / 400 100 / 100 Unasyn Inj 3 GM In NS Inj 100 300 / 300 200 / 200 100 / 100 ML @ 200 mls/hr IV.SIG Q6H [facility] Rx#:[id number] D5W/LR + KCL 20 mEq Inj 1,000 1000 / 1000 ML @ 50 mls/hr IV.SIG .Q20H [facility] Rx#:[id number] Flagyl 500 MG Inj 100 ML @ 100 200 / 200 200 / 200 mls/hr IV.SIG Q8H [facility] Rx#: [id number] Anesthesia Amount 1999 / 1999 Intake (Blood Product) Amt 0 / 0 Rbc As-3 Leukoreduced Unit 0 / 0 [id number] Rbc As-3 Leukoreduced Unit 0 / 0 [id number] Output: Estimated Blood Loss 300 / 300 Urine Amount (Catheter) 350 / 350 1410 / 1410 Indwelling Urethral Catheter 350 / 350 1410 / 1410 Wound Drainage 350 / 350 # 1 Left Lower Abdomen 115 / 115 # 2 Right Lower Abdomen 235 / 235 Other: Date of Last Bowel Movement 02/13/18 02/13/18 02/13/18 Result Diagrams: 02/15/18 08:20 02/15/18 08:20 Laboratory Results: Laboratory Results - last 24 hr 02/14/18 02/14/18 02/14/18 17:23 17:35 19:55 WBC 8.2 7.9 RBC 2.98 L 2.90 L Hgb 7.6 L D 7.2 L Hct 24.1 L 23.1 L MCV 80.8 79.8 L MCH 25.4 L 24.9 L MCHC 31.4 L 31.2 L RDW 22.1 H 22.1 H Plt Count 440 473 H MPV 6.0 L 6.2 L Neut % (Auto) 89.7 H 89.0 H Lymph % (Auto) 5.4 L 5.3 L Tama % (Auto) 4.6 5.1 Eos % (Auto) 0.0 0.0 Baso % (Auto) 0.3 0.6 Neut # (Auto) 7.4 7.0 Lymph # (Auto) 0.4 L 0.4 L Tama # (Auto) 0.4 0.4 Eos # (Auto) 0.0 0.0 Baso # (Auto) 0.0 0.0 WBC Differential . . Differential Comment Auto diff final Auto diff final Sodium Potassium Chloride Carbon Dioxide Anion Gap BUN Creatinine Estimated GFR Random Glucose Calcium MTS Gel Crossmatch See Detail 02/14/18 02/15/18 02/15/18 19:55 08:20 08:20 WBC 17.2 H D RBC 4.22 Hgb 10.8 L D Hct 33.5 L MCV 79.5 L MCH 25.5 L MCHC 32.1 RDW 22.4 H Plt Count 483 H MPV 6.2 L Neut % (Auto) 94.9 H Lymph % (Auto) 1.0 L Tama % (Auto) 3.6 Eos % (Auto) 0.0 Baso % (Auto) 0.5 Neut # (Auto) 16.3 H Lymph # (Auto) 0.2 L Tama # (Auto) 0.6 Eos # (Auto) 0.0 Baso # (Auto) 0.1 WBC Differential . Differential Comment Auto diff final Sodium 142 141 Potassium 3.2 L 3.5 Chloride 106 105 Carbon Dioxide 23.9 24.9 Anion Gap 12 11 BUN 9 10 Creatinine 0.61 0.92 Estimated GFR Greater than 89 71 L Random Glucose 161 H 217 H Calcium 8.4 L D 8.8 MTS Gel Crossmatch Imaging Studies: Impressions Chest X-Ray 02/14/18 00:00 CONCLUSION: Right internal jugular central line in good position. Mild atelectasis or consolidation at the left base. Objective Remarks: VS-S BP 190/92 Abd: flat,soft, dressings dry. Ureteral catheter removed. I&Os and labs:OK Assessment and Plan - Plan Doing well. Ureteral cath removed. OOB. D/W RN re dressing changes. Wound care to redress BID or TID. RNs will do it in their absence
[2018-02-15] MEDS: KCL 20 mEq/D5W/LR Inj 1,000 ML IV.CONT SCH (16:18)
[2018-02-15] MEDS ORDERED: Naloxone Inj 0.4 MG/ML Vial IV.PUSH PRN (17:52)
--- NOTE | 2018-02-15 18:52 | P.PNWCN ---
Wound Care Nurse Consult Description: Consult for New Ostomy Teaching of temporary RUQ loop ileostomy per Dr Harrell *BID or TID dressing changes were ordered for wound management and can be carried out by nursing staff; (ticketing clerk's do not perform routine dressing changes) Communicated with: Patient Patient daughters at bedside Recommendation: Assess stoma for color, moisture, and output Additional information: Patient seen on [facility] for ostomy assessment and teaching. Bowel Diversion Stoma - Bowel Stoma Right Upper Abdomen Stoma Appearance: Protruding (red, moist), Round Collection Device: Two-piece, Moldable Wafer (intact and noted without leaks) Drainage Description: Liquid, Blood-Tinged Wafer Size: 2 1/4 Moldable Radha-Stomal Surrounding Tissue Sensation Description: No Symptoms (patient has no complaints, wafer is intact therefore the peristomal skin/mucocutaneous junction was not visualized at this time)
--- NOTE | 2018-02-15 21:02 | P.CON ---
[facility] of Present Illness [facility]: 02/15[facility]18 Requesting Physician: Aj Harrell Reason for Consult: Hypertension Primary Care Provider: Genet Mcgraw MD Chief Complaint: Elevated blood pressure History of Present Illness: Ms. Aguilera is a pleasant 82 y/o female with no prior history of hypertension who has been in the hospital since 02/01/18 for treatment of persistent psoas muscle abscesses. She has been having abnormally elevated blood pressures following surgery 02-14-18 and [facility] was consulted to assist to control blood pressure which was not responding to IV Enalapril. The patient is seen in the [facility]. She does not appear in any distress but reports post-operative abdominal pain as a while also stating it doesn't hurt "that bad". She reports relief with LEGAL [employer]. Worsened with movement. She denies any headaches, weakness, speech problems, dizziness, chest pain, shortness of breath, or dyspnea. She reports a mild pain behind her right knee. She reports post-operative nausea yesterday but has had none today and never vomited. Review of Systems All other systems reviewed negative except as stated in HPI PMFSH - History History Provided By: Patient - Medical History Medical History: Medical History (Last Updated 02/16/18 @ 01:10 by KENISHA Mendes) Diverticulitis Left leg DVT Onset Date: ~2015 Osteoarthritis Proctocolitis, ulcerative Pyoderma gangrenosum Right leg DVT Onset Date: ~2006 Venous (peripheral) insufficiency - Surgical History Surgical History: Surgical History (Last Updated 02/16/18 @ 00:51 by KENISHA Mendes) History of surgical removal of ganglion cyst History of total right hip arthroplasty Onset Date: ~2006 S/P debridement Onset Date: ~02/14/18 S/P left colectomy Onset Date: ~02/14/18 S/P small bowel resection Onset Date: ~02/14/18 Status post cystoscopy Onset Date: ~02/14/18 Status post ileostomy Onset Date: ~02/14/18 - Family History Family History: Family History (Last Updated 02/16/18 @ 00:48 by KENISHA Mendes) Mother Natural Father CVA (cerebral vascular accident) Sister Breast CA Brother Liver disease Medications and Allergies Active Medications: Active Medications Hydrocodone Bitart/Acetaminophen ([place] 5/325) 1 tab PO Q4H PRN PRN Reason: PAIN SCALE 1 TO 4 Hydrocodone Bitart/Acetaminophen ([place] 5/325) 2 tab PO Q4H PRN PRN Reason: PAIN SCALE 5 TO 10 Last Admin: 02/15/18 18:43 Dose: 2 tab Alvimopan (Entereg) 12 mg PO BID [facility] Stop: 02/21/18 21:01 Last Admin: 02/15/18 10:18 Dose: 12 mg Benzocaine/Menthol (Chloraseptic Sore Throat Lozenge) 1 lozenge BUCCAL PRN PRN PRN Reason: SORE THROAT Chlorhexidine Gluconate (Chlorhexidine 2% Cloth) 3 pack TOPICAL BALE OPENER [facility] Stop: 02/17/18 14:31 Clonidine HCl (Catapres) 0.1 mg PO Q6H PRN PRN Reason: SBP > 160 and/or DBP > 100 Enalaprilat (Vasotec Inj) 2.5 mg IV.PUSH Q6H PRN PRN Reason: SBP > 160 mmHg Last Admin: 02/15/18 15:34 Dose: 2.5 mg Furosemide (Lasix Inj) 20 mg IV.PUSH Q12H [facility] Last Admin: 02/15/18 10:20 Dose: 20 mg Heparin Sodium (Porcine) (Heparin Inj) 5,000 units SQ Q12HR [facility] Hydrocortisone Sodium Succinate (Solucortef Inj) 100 mg IV.PUSH Q8HR [facility] Last Admin: 02/15/18 12:59 Dose: 100 mg Metronidazole/Sodium Chloride (Flagyl 500 Mg Inj) 100 mls @ 100 mls/hr IV.SIG Q8H [facility] Last Infusion: 02/15/18 14:24 Dose: Infused Potassium Cl/Dextrose/Lact Ringer's (D5w/Lr + Kcl 20 Meq Inj) 1,000 mls @ 100 mls/hr IV.CONT .Q10H [facility] Last Admin: 02/15/18 16:18 Dose: 150 mls/hr Potassium Chloride (Kcl 20 Meq Premix Inj) 20 meq in 100 mls @ 50 mls/hr IV.SIG UNSCH PRN PRN Reason: for K+ level 3.0-3.5 Potassium Chloride (Kcl 40 Meq Premix Inj) 40 meq in 100 mls @ 25 mls/hr IV.SIG UNSCH PRN PRN Reason: for K= level < 3.0 Morphine Sulfate (Morphine Inj) 30 mg in 30 mls @ 0 mls/hr [employer]GAL [employer] UNSCH PRN PRN Reason: per LEGAL INTERN parameters Ampicillin Sodium/Sulbactam (Sodium 3 gm/ Sodium Chloride) 100 mls @ 200 mls/ hr IV.SIG Q6H [facility] Last Infusion: 02/15/18 14:24 Dose: Infused Metoclopramide HCl (Reglan Inj) 10 mg IV.PUSH Q6HR [facility]; Protocol Last Admin: 02/15/18 18:29 Dose: 10 mg Metoprolol Tartrate (Lopressor) 25 mg PO BALE OPENER [facility] Stop: 02/17/18 14:31 Naloxone HCl (Narcan Inj) 0.4 mg IV.PUSH PRN PRN PRN Reason: Resp rate < 10 Ondansetron HCl (Zofran Odt) 4 mg PO Q6H PRN PRN Reason: NAUSEA OR VOMITING Pantoprazole Sodium (Protonix Inj) 40 mg IV.PUSH DAILY [facility] Last Admin: 02/15/18 10:19 Dose: 40 mg Povidone Iodine (Betadine 5% Antisepsis Kit) 1 applicatio EACH NARE BALE OPENER [facility] Stop: 02/17/18 14:31 Sodium Chloride (Ns Flush) 2 ml IV.FLUSH BID [facility] Last Admin: 02/15/18 10:20 Dose: 2 ml Sodium Chloride (Ns Flush) 2 ml IV.FLUSH PRN PRN PRN Reason: FLUSH AFTER USING IV ACCESS Zolpidem Tartrate (Ambien) 5 mg PO HS PRN PRN Reason: INSOMNIA Allergies Allergy/AdvReac Type Severity Reaction Status Date / Time No Known Allergies Allergy Unknown Uncoded 02/01/18 19:22 Home Medications Medication Instructions Recorded Confirmed Type dabigatran etexilate 150 mg PO BID 02/05/18 02/05/18 History ferrous sulfate 325 mg PO DAILY 02/05/18 02/05/18 History furosemide 20 mg PO WEEKLY 02/05/18 02/05/18 History mycophenolate mofetil 1,000 mg PO BID 02/05/18 02/05/18 History pantoprazole 40 mg PO DAILY 02/05/18 02/05/18 History prednisone 10 mg PO DAILY 02/05/18 02/05/18 History spironolactone 25 mg PO WEEKLY 02/05/18 02/05/18 History sulfasalazine 1 g PO BID 02/05/18 02/05/18 History Physical Exam Vital signs: Vital Signs 02/14/18 21:15 02/14/18 21:30 02/14/18 21:45 Temperature 97.4 F L Pulse Rate 73 78 81 Respiratory Rate 14 11 L 13 Blood Pressure 193/91 H 192/92 H 189/91 H Pulse Oximetry 100 100 100 02/14/18 22:00 02/14/18 22:15 02/14/18 22:30 Temperature 98.3 F Pulse Rate 64 66 70 Respiratory Rate 15 14 15 Blood Pressure 161/77 H 185/90 H 179/85 H Pulse Oximetry 100 100 100 02/14/18 23:00 02/14/18 23:43 02/15/18 00:00 Temperature 98 F Pulse Rate 74 80 83 Respiratory Rate 15 Blood Pressure 175/87 H Pulse Oximetry 100 02/15/18 00:04 02/15/18 00:20 02/15/18 00:40 Temperature 98.1 F 97.8 F 98.6 F Pulse Rate 80 83 80 Respiratory Rate 15 16 14 Blood Pressure 170/96 H 171/93 H 171/90 H Pulse Oximetry 99 99 99 02/15/18 01:00 02/15/18 02:00 02/15/18 02:44 Temperature 99.1 F Pulse Rate 84 90 89 Respiratory Rate 16 Blood Pressure 176/92 H Pulse Oximetry 99 02/15/18 03:00 02/15/18 03:36 02/15/18 03:53 Temperature 99 F 98.6 F Pulse Rate 90 93 H 90 Respiratory Rate 16 16 Blood Pressure 180/96 H 170/92 H Pulse Oximetry 99 99 02/15/18 04:00 02/15/18 04:13 02/15/18 04:47 Temperature 98.6 F 98.3 F Pulse Rate 91 H 94 H 95 H Respiratory Rate 16 14 Blood Pressure 171/97 H 183/92 H Pulse Oximetry 98 99 02/15/18 05:00 02/15/18 05:35 02/15/18 06:00 Temperature Pulse Rate 98 H 92 H 100 H Respiratory Rate Blood Pressure 185/87 H 172/85 H Pulse Oximetry 02/15/18 08:00 02/15/18 09:00 02/15/18 10:00 Temperature 98.7 F Pulse Rate 110 H 102 H 102 H Respiratory Rate 18 Blood Pressure 168/94 H Pulse Oximetry 02/15/18 10:39 02/15/18 11:00 02/15/18 12:00 Temperature 98.6 F Pulse Rate 94 H 94 H Respiratory Rate 18 Blood Pressure 186/83 H Pulse Oximetry 96 02/15/18 13:00 02/15/18 14:00 02/15/18 14:14 Temperature 98.7 F Pulse Rate 90 88 96 H Respiratory Rate 16 Blood Pressure 168/84 H Pulse Oximetry 99 02/15/18 15:00 02/15/18 16:00 02/15/18 17:00 Temperature 98.2 F Pulse Rate 89 86 96 H Respiratory Rate 18 Blood Pressure 198/95 H Pulse Oximetry 02/15/18 18:00 Temperature Pulse Rate 88 Respiratory Rate Blood Pressure Pulse Oximetry Intake & Output 02/15/18 02/15/18 02/16/18 06:59 18:59 06:59 Intake Total 400 / 400 1780 / 1780 Output Total 1760 / 1760 1080 / 1080 Balance -1360 / -1360 700 / 700 Weight 54.4 kg Intake: IV 400 / 400 1300 / 1300 D5W/LR + KCL 20 mEq Inj 1,000 1000 / 1000 ML @ 100 mls/hr IV.CONT .Q10H [facility] Rx#:[id number] Unasyn Inj 3 GM In NS Inj 100 200 / 200 200 / 200 ML @ 200 mls/hr IV.SIG Q6H [facility] Rx#:[id number] Flagyl 500 MG Inj 100 ML @ 100 200 / 200 100 / 100 mls/hr IV.SIG Q8H [facility] Rx#: [id number] Oral 480 / 480 Intake (Blood Product) Amt 0 / 0 Rbc As-3 Leukoreduced Unit 0 / 0 [id number] Rbc As-3 Leukoreduced Unit 0 / 0 [id number] Output: Urine Amount (Catheter) 1410 / 1410 1000 / 1000 Indwelling Urethral Catheter 1410 / 1410 1000 / 1000 Stool Amount (Stoma) 30 / 30 Right Upper Abdomen 30 / 30 Wound Drainage 350 / 350 50 / 50 # 1 Left Lower Abdomen 115 / 115 30 / 30 # 2 Right Lower Abdomen 235 / 235 20 / 20 Other: Date of Last Bowel Movement 02/13/18 02/13/18 - Constitutional no acute distress, average body habitus, cooperative - Routine HEENT Exam Head: Present: normocephalic, atraumatic ENT: Present: mucous membranes moist - Routine Neck Exam Absent: JVD, carotid bruit - Routine Respiratory Exam Present: CTA bilaterally. Absent: respiratory distress, wheezes, crackles - Routine Cardiovascular Exam Present: RRR, S1, S2. Absent: murmur, gallop, rubs - Routine Abdominal Exam Present: soft, tenderness, ostomy. Absent: distended Comments: hypoactive bowel sounds - Routine Extremities Exam Present: pulses intact. Absent: edema, calf tenderness, Destinee's sign - Routine Skin Exam Present: dry, warm - Routine Neurological Exam Present: alert, oriented X3, normal speech - Routine Psychiatric Exam Present: normal affect, cooperative - Urinary Catheter Management Straight Cath placed during this visit: yes Reason for continuing: Acute urinary retention Insertion date: 02/09/18 Insertion time: 10:30 Indwelling Urethral Catheter Cath placed during this visit: yes, but has since been removed by the nurse Reason for continuing: Acute urinary retention Insertion date: 02/14/18 Insertion time: 16:30 Removal date: 02/14/18 Removal time: 16:03 Assessment and Plan - Assessment (1) Asymptomatic hypertensive urgency Code(s): I16.0 - Hypertensive urgency Status: Acute - Plan Ms. Aguilera is a pleasant 82 y/o female with no prior history of hypertension who has been in the hospital since 02/01/18 for treatment of persistent psoas muscle abscesses. She has been having abnormally elevated blood pressures following surgery 02-14-18 and [facility] was consulted to assist to control blood pressure which was not responding to IV Enalapril. Hypertensive urgency likely secondary to increased intravascular volume combined with pain - will d/c enalapril and start PRN Clonidine 0.1 mg q6h PO prn sbp > 160 or DBP > 100, if HR > 60 - IVF running at 150 cc/hr at time of my visit; decreased rate to 75 cc/hr - monitor trends in bp; adjust treatments accordingly - continue LEGAL [employer] pump as previously ordered - discussed with nursing Left posterior knee pain History of DVT, bilaterally - will check left lower extremity us to r/o DVT given history and risk factors though she does not appear classically symptomatic Leukocytosis, likely post-operative - WBC 17.2 on 02/15- was 7.9 on 02/14 - will follow CBC in a.m. - patient afebrile and without symptoms suggestive of infection; CXR with LLL atelectasis vs consolidation - if CBC increases, consider repeat x-ray - patient encouraged to use I/S Thank you, Dr. Harrell, for the opportunity to participate in the care of Ms. Aguilera. We will continue to follow. Discussed Condition With: patient, RN, and Dr. Ward .
[2018-02-15] MEDS: Heparin - SQ 10,000 UNITS/ML Vial SQ SCH (21:51)
[2018-02-15] MEDS: Morphine Inj 30 MG/30 ML PCA.VIAL PCA PRN (21:59)
[2018-02-16] MEDS: KCL 20 mEq/D5W/LR Inj 1,000 ML IV.CONT SCH ×4 (00:51→14:04)
[2018-02-16] MEDS: Ampicillin/Sulbactam Inj 3 GM in Sodium Chloride 0.9% Inj 100 ML IV.SIG SCH ×4 (01:00→21:50)
[2018-02-16 04:44] LABS: Baso % (Auto) 0.2 % (0.0-2.0); Hematocrit 29.1 % (35.0-46.0); Hemoglobin 9.3 gm/dL (11.6-15.3); Lymph # (Auto) 0.3 th/mm3 (1.0-4.8); Lymph % (Auto) 1.7 % (9.0-44.0); Mean Corpuscular HGB Conc 31.9 % (32.0-36.0); Mean Corpuscular Hemoglobin 25.2 pg (27.0-34.0); Mean Corpuscular Volume 79.2 fL (80.0-100.0); Mean Platelet Volume 6.2 fL (7.0-11.0); Neut # (Auto) 18.8 th/mm3 (1.8-7.7); Neut % (Auto) 93.1 % (16.0-70.0); Platelet Count 423 th/mm3 (150-450); Red Blood Count 3.67 mil/mm3 (4.00-5.30); White Blood Count 20.2 th/mm3 (4.0-11.0)
[2018-02-16 05:03] LABS: Calcium 8.8 mg/dL (8.5-10.1); Potassium 3.4 meq/L (3.5-5.1)
[2018-02-16] MEDS: Hydrocortisone Sod Succinate 100 MG Vial IV.PUSH SCH ×2 (05:19→21:49)
[2018-02-16] MEDS: Morphine Inj 30 MG/30 ML PCA.VIAL PCA PRN (06:16)
--- NOTE | 2018-02-16 09:14 | P.PNCS ---
Subjective Interval history: Not much pain . No N or V. Possible DVT. Has been on heparin drip her whole hospital stay except during and after surgery. Cannot resume hepain drip until AM.No BMs yet Objective Vital Signs/Intake & Output: Vital Signs 02/15/18 10:00 02/15/18 10:39 02/15/18 11:00 Temperature Pulse Rate 102 H 94 H Respiratory Rate Blood Pressure Pulse Oximetry 96 02/15/18 12:00 02/15/18 13:00 02/15/18 14:00 Temperature 98.6 F Pulse Rate 94 H 90 88 Respiratory Rate 18 Blood Pressure 186/83 H Pulse Oximetry 02/15/18 14:14 02/15/18 15:00 02/15/18 16:00 Temperature 98.7 F 98.2 F Pulse Rate 96 H 89 86 Respiratory Rate 16 18 Blood Pressure 168/84 H 198/95 H Pulse Oximetry 99 02/15/18 17:00 02/15/18 18:00 02/15/18 19:00 Temperature Pulse Rate 96 H 88 89 Respiratory Rate Blood Pressure Pulse Oximetry 02/15/18 20:00 02/15/18 21:00 02/15/18 21:20 Temperature 98.8 F Pulse Rate 86 90 91 H Respiratory Rate 19 Blood Pressure 190/90 H Pulse Oximetry 97 02/15/18 21:40 02/15/18 22:00 02/15/18 22:28 Temperature Pulse Rate 94 H Respiratory Rate 18 18 Blood Pressure Pulse Oximetry 02/15/18 23:00 02/15/18 23:38 02/16/18 00:00 Temperature 98.8 F Pulse Rate 90 95 H 102 H Respiratory Rate 18 Blood Pressure 178/85 H Pulse Oximetry 95 02/16/18 01:00 02/16/18 02:00 02/16/18 03:00 Temperature Pulse Rate 96 H 97 H 89 Respiratory Rate Blood Pressure Pulse Oximetry 02/16/18 04:00 02/16/18 05:00 02/16/18 06:00 Temperature 98.5 F Pulse Rate 84 87 83 Respiratory Rate 19 Blood Pressure 157/80 H Pulse Oximetry 96 02/16/18 07:00 02/16/18 08:00 Temperature 99.6 F Pulse Rate 85 84 Respiratory Rate 16 Blood Pressure 160/87 H Pulse Oximetry Intake & Output 02/15/18 02/16/1802/16/18 18:59 06:59 18:59 Intake Total 1780 / 1780 1500 / 1500 Output Total 1080 / 1080 805 / 805 Balance 700 / 700 695 / 695 Weight 54.3 kg Intake: IV 1300 / 1300 1400 / 1400 D5W/LR + KCL 20 mEq Inj 1,000 1000 / 1000 1000 / 1000 ML @ 75 mls/hr IV.CONT .[id number] [facility]UMIKO Rx#:[id number] Unasyn Inj 3 GM In NS Inj 100 200 / 200 200 / 200 ML @ 200 mls/hr IV.SIG Q6H [facility]KO Rx#:[id number] Flagyl 500 MG Inj 100 ML @ 100 100 / 100 200 / 200 mls/hr IV.SIG Q8H YUMIKO Rx#: [id number] Oral 480 / 480 100 / 100 Output: Urine Amount (Catheter) 1000 / 1000 750 / 750 Indwelling Urethral Catheter 1000 / 1000 750 / 750 Stool Amount (Stoma) 30 / 30 20 / 20 Right Upper Abdomen 30 / 30 20 / 20 Wound Drainage 50 / 50 35 / 35 # 1 Left Lower Abdomen 30 / 30 # 1 Right Lower Abdomen 10 / 10 # 2 Left Lower Abdomen 25 / 25 # 2 Right Lower Abdomen 20 / 20 Other: Date of Last Bowel Movement 02/13/18 Result Diagrams: 02/16/18 04:21 02/16/18 04:21 Laboratory Results: Laboratory Results - last 24 hr 02/14/18 02/15/18 02/16/18 17:35 08:20 04:21 WBC 20.2 H RBC 3.67 L Hgb 9.3 L Hct 29.1 L MCV 79.2 L MCH 25.2 L MCHC 31.9 L RDW 23.0 H Plt Count 423 MPV 6.2 L Neut % (Auto) 93.1 H Lymph % (Auto) 1.7 L Gilchrist % (Auto) 5.0 Eos % (Auto) 0.0 Baso % (Auto) 0.2 Neut # (Auto) 18.8 H Lymph # (Auto) 0.3 L Gilchrist # (Auto) 1.0 H Eos # (Auto) 0.0 Baso # (Auto) 0.0 WBC Differential . Differential Comment Auto diff final Sodium 141 Potassium 3.5 Chloride 105 Carbon Dioxide 24.9 Anion Gap 11 BUN 10 Creatinine 0.92 Estimated GFR 71 L Random Glucose 217 H Calcium 8.8 MTS Gel Crossmatch See Detail 02/16/18 04:21 WBC RBC Hgb Hct MCV MCH MCHC RDW Plt Count MPV Neut % (Auto) Lymph % (Auto) Gilchrist % (Auto) Eos % (Auto) Baso % (Auto) Neut # (Auto) Lymph # (Auto) Gilchrist # (Auto) Eos # (Auto) Baso # (Auto) WBC Differential Differential Comment Sodium 144 Potassium 3.4 L Chloride 107 Carbon Dioxide 28.0 Anion Gap 9 BUN 10 Creatinine 0.80 Estimated GFR 84 L Random Glucose 166 H Calcium 8.8 MTS Gel Crossmatch Medications: Active Medications Hydrocodone Bitart/Acetaminophen ([place] 5/325) 1 tab PO Q4H PRN PRN Reason: PAIN SCALE 1 TO 4 Hydrocodone Bitart/Acetaminophen ([place] 5/325) 2 tab PO Q4H PRN PRN Reason: PAIN SCALE 5 TO 10 Last Admin: 02/15/18 18:43 Dose: 2 tab Alvimopan (Entereg) 12 mg PO BID [facility] Stop: 02/21/18 21:01 Last Admin: 02/15/18 21:52 Dose: 12 mg Benzocaine/Menthol (Chloraseptic Sore Throat Lozenge) 1 lozenge BUCCAL PRN PRN PRN Reason: SORE THROAT Chlorhexidine Gluconate (Chlorhexidine 2% Cloth) 3 pack TOPICAL DESULPHURING OPERATOR [facility] Stop: 02/17/18 14:31 Clonidine HCl (Catapres) 0.1 mg PO Q6H PRN PRN Reason: SBP > 160 and/or DBP > 100 Last Admin: 02/15/18 22:27 Dose: 0.1 mg Furosemide (Lasix Inj) 20 mg IV.PUSH Q12H [facility] Last Admin: 02/15/18 23:50 Dose: 20 mg Heparin Sodium (Porcine) (Heparin Inj) 5,000 units SQ Q12HR [facility] Last Admin: 02/15/18 21:51 Dose: 5,000 units Hydrocortisone Sodium Succinate (Solucortef Inj) 100 mg IV.PUSH Q8HR [facility] Last Admin: 02/16/18 05:19 Dose: 100 mg Metronidazole/Sodium Chloride (Flagyl 500 Mg Inj) 100 mls @ 100 mls/hr IV.SIG Q8H [facility] Last Infusion: 02/16/18 06:28 Dose: Infused Potassium Cl/Dextrose/Lact Ringer's (D5w/Lr + Kcl 20 Meq Inj) 1,000 mls @ 30 mls/hr IV.CONT .Q24H [facility] Last Admin: 02/16/18 00:51 Dose: 75 mls/hr Potassium Chloride (Kcl 20 Meq Premix Inj) 20 meq in 100 mls @ 50 mls/hr IV.SIG UNSCH PRN PRN Reason: for K+ level 3.0-3.5 Potassium Chloride (Kcl 40 Meq Premix Inj) 40 meq in 100 mls @ 25 mls/hr IV.SIG UNSCH PRN PRN Reason: for K= level < 3.0 Morphine Sulfate (Morphine Inj) 30 mg in 30 mls @ 0 mls/hr [employer]NALY[employer] UNSCH PRN PRN Reason: per [employer] ANALY[employer] parameters Last Admin: 02/16/18 06:16 Dose: 0 mls/hr Ampicillin Sodium/Sulbactam (Sodium 3 gm/ Sodium Chloride) 100 mls @ 200 mls/ hr IV.SIG Q6H [facility] Last Infusion: 02/16/18 01:36 Dose: Infused Metoclopramide HCl (Reglan Inj) 10 mg IV.PUSH Q6HR [facility]; Protocol Last Admin: 02/16/18 05:20 Dose: 10 mg Metoprolol Tartrate (Lopressor) 25 mg PO DESULPHURING OPERATOR [facility] Stop: 02/17/18 14:31 Naloxone HCl (Narcan Inj) 0.4 mg IV.PUSH PRN PRN PRN Reason: Resp rate < 10 Ondansetron HCl (Zofran Odt) 4 mg PO Q6H PRN PRN Reason: NAUSEA OR VOMITING Pantoprazole Sodium (Protonix Inj) 40 mg IV.PUSH DAILY [facility] Last Admin: 02/15/18 10:19 Dose: 40 mg Povidone Iodine (Betadine 5% Antisepsis Kit) 1 applicatio EACH NARE DESULPHURING OPERATOR [facility] Stop: 02/17/18 14:31 Sodium Chloride (Ns Flush) 2 ml IV.FLUSH BID [facility] Last Admin: 02/15/18 23:50 Dose: 2 ml Sodium Chloride (Ns Flush) 2 ml IV.FLUSH PRN PRN PRN Reason: FLUSH AFTER USING IV ACCESS Last Admin: 02/16/18 05:20 Dose: 2 ml Zolpidem Tartrate (Ambien) 5 mg PO HS PRN PRN Reason: INSOMNIA Objective Remarks: VS-S Abd: flat,wounds clean,stoma pink. Left groin dressing must be changed BID to TID Assessment and Plan - Plan Doing well. OOB. D/W RN re dressing changes. Wound care to redress BID or TID. RNs will do it in their absence. OK to be OOB with DVT. IV to 30/hr. Continue diuresis. FLD today.
[2018-02-16] MEDS: Pantoprazole Inj 40 MG Vial IV.PUSH SCH (09:41)
[2018-02-16] MEDS: Heparin - SQ 10,000 UNITS/ML Vial SQ SCH ×2 (09:42→17:27)
--- NOTE | 2018-02-16 10:41 | US ---
EXAM DATE: 02/16/2018 8:31 AM EDT AGE/SEX: 82 years / Female INDICATIONS: Left leg pain. CLINICAL DATA: This is the patient's initial encounter. Patient reports that signs and symptoms have been present for 4 - 6 days and indicates a pain score of 3/10. MEDICAL/SURGICAL HISTORY: Diverticulitis. Osteoarthritis. Peripheral vascular disease. DVT. Ulcerative proctocolitis. Pyoderma gangrenosum. . Ganglion cyst removal. Total right hip arthroplast y. Debridement. Left colectomy. Small bowel resection. Cystoscopy. Ileostomy. COMPARISON: [facility], US LEG VENOUS DOPPLER, BILATERAL, 01/22/2017. . TECHNIQUE: Venous ultrasound of both lower extremities was performed from the inguinal ligament to t he proximal calf. Real-time, color Doppler and spectral tracing, compression and augmentation techni ques were used. FINDINGS: There is echogenic noncompressible material involving the superficial femoral vein within its mid aspect. Thrombus was seen in this location on the prior exam. This is nonocclusive in nature. The remaining deep venous structures show normal venous waveforms. CONCLUSION: 1. Suspected residual chronic clot involving the superficial femoral vein which was present on the 2 017 exam. I cannot completely exclude recurrent acute thrombus. This is nonocclusive. Electronically signed by: Ashutosh Bell MD 02/16/2018 10:39 AM EDT
--- NOTE | 2018-02-16 13:56 | P.PNIM ---
Subjective Interval history: Ms. Aguilera is a pleasant 82 y/o female with no prior history of hypertension who has been in the hospital since 02/01/18 for treatment of persistent psoas muscle abscesses. She has been having abnormally elevated blood pressures following surgery 02-14-18 and [facility] was consulted to assist to control blood pressure which was not responding to IV Enalapril. The patient is seen in the [facility]. She does not appear in any distress but reports post-operative abdominal pain as a while also stating it doesn't hurt "that bad". She reports relief with [employer]. Worsened with movement. She denies any headaches, weakness, speech problems, dizziness, chest pain, shortness of breath, or dyspnea. She reports a mild pain behind her right knee. She reports post-operative nausea yesterday but has had none today and never vomited. 02-16 LEFT LEG DVT NOTED ON DOPPLER WORKING WITH WOUND CARE REGARDING OSTOMY AM LABS HAS LEUKOCYTOSIS DW RN AND PT AND FAMILY AND CM Physical Exam Vital signs: Vital Signs 02/15/18 14:00 02/15/18 14:14 02/15/18 15:00 Temperature 98.7 F Pulse Rate 88 96 H 89 Respiratory Rate 16 Blood Pressure 168/84 H Pulse Oximetry 99 02/15/18 16:00 02/15/18 17:00 02/15/18 18:00 Temperature 98.2 F Pulse Rate 86 96 H 88 Respiratory Rate 18 Blood Pressure 198/95 H Pulse Oximetry 02/15/18 19:00 02/15/18 20:00 02/15/18 21:00 Temperature Pulse Rate 89 86 90 Respiratory Rate Blood Pressure Pulse Oximetry 02/15/18 21:20 02/15/18 21:40 02/15/18 22:00 Temperature 98.8 F Pulse Rate 91 H 94 H Respiratory Rate 19 18 Blood Pressure 190/90 H Pulse Oximetry 97 02/15/18 22:28 02/15/18 23:00 02/15/18 23:38 Temperature 98.8 F Pulse Rate 90 95 H Respiratory Rate 18 18 Blood Pressure 178/85 H Pulse Oximetry 95 02/16/18 00:00 02/16/18 01:00 02/16/18 02:00 Temperature Pulse Rate 102 H 96 H 97 H Respiratory Rate Blood Pressure Pulse Oximetry 02/16/18 03:00 02/16/18 04:00 02/16/18 05:00 Temperature 98.5 F Pulse Rate 89 84 87 Respiratory Rate 19 Blood Pressure 157/80 H Pulse Oximetry 96 02/16/18 06:00 02/16/18 07:00 02/16/18 08:00 Temperature 99.6 F Pulse Rate 83 85 85 Respiratory Rate 16 Blood Pressure 160/87 H Pulse Oximetry 02/16/18 09:00 02/16/18 10:00 02/16/18 11:00 Temperature Pulse Rate 82 84 89 Respiratory Rate Blood Pressure Pulse Oximetry 02/16/18 12:00 02/16/18 13:00 Temperature 98.8 F Pulse Rate 82 77 Respiratory Rate 16 Blood Pressure 171/99 H Pulse Oximetry 97 Intake & Output 02/15/18 02/16/18 02/16/18 18:59 06:59 18:59 Intake Total 1780 / 1780 1500 / 1500 1200 / 1200 Output Total 1080 / 1080 805 / 805 Balance 700 / 700 695 / 695 1200 / 1200 Weight 54.3 kg Intake: IV 1300 / 1300 1400 / 1400 1200 / 1200 D5W/LR + KCL 20 mEq Inj 1,000 1000 / 1000 1000 / 1000 1000 / 1000 ML @ 30 mls/hr IV.CONT .Q24H [facility] Rx#:[id number] Unasyn Inj 3 GM In NS Inj 100 200 / 200 200 / 200 100 / 100 ML @ 200 mls/hr IV.SIG Q6H [facility] Rx#:[id number] KCl 20 mEq Premix Inj 20 meq In 100 / 100 100 ml @ 50 mls/hr IV.SIG UNSCH PRN Rx#:[id number] Flagyl 500 MG Inj 100 ML @ 100 100 / 100 200 / 200 mls/hr IV.SIG Q8H [facility] Rx#: [id number] Oral 480 / 480 100 / 100 Output: Urine Amount (Catheter) 1000 / 1000 750 / 750 Indwelling Urethral Catheter 1000 / 1000 750 / 750 Stool Amount (Stoma) 30 / 30 20 / 20 Right Upper Abdomen 30 / 30 20 / 20 Wound Drainage 50 / 50 35 / 35 # 1 Left Lower Abdomen 30 / 30 # 1 Right Lower Abdomen 10 / 10 # 2 Left Lower Abdomen 25 / 25 # 2 Right Lower Abdomen 20 / 20 Other: Date of Last Bowel Movement 02/13/18 02/13/18 Narrative: GENERAL: Awake and alert talkative and cooperative some confusion SKIN: Warm and dry. HEAD: Atraumatic. Normocephalic. EYES: Pupils equal and round. No scleral icterus. No injection or drainage. ENT: No nasal bleeding or discharge. Mucous membranes pink and moist. NECK: Trachea midline. No JVD. CARDIOVASCULAR: Regular rate and rhythm. S1-S2 no S3 or S4 RESPIRATORY: No accessory muscle use. Clear to auscultation. Breath sounds equal bilaterally. GASTROINTESTINAL: Abdomen soft, non-tender, nondistended. Hepatic and splenic margins not palpable. Has ostomy in place MUSCULOSKELETAL: Extremities without clubbing, cyanosis, or edema. No obvious deformities. Left lower extremity DVT NEUROLOGICAL: Awake and alert. No obvious cranial nerve deficits. Motor grossly within normal limits. 4 out of 5 muscle strength in the arms and legs. Normal speech. PSYCHIATRIC: INAppropriate mood and affect; insight and judgment ABnormal. - Urinary Catheter Management Straight Cath placed during this visit: yes Reason for continuing: Acute urinary retention Insertion date: 02/09/18 Insertion time: 10:30 Indwelling Urethral Catheter Cath placed during this visit: yes, but has since been removed by the nurse Reason for continuing: Acute urinary retention Insertion date: 02/14/18 Insertion time: 16:30 Removal date: 02/14/18 Removal time: 16:03 Results - Labs CBC & Chem 7: 02/16/18 04:21 02/16/18 04:21 Laboratory Results - last 24 hr 02/14/18 02/16/18 02/16/18 17:35 04:21 04:21 WBC 20.2 H RBC 3.67 L Hgb 9.3 L Hct 29.1 L MCV 79.2 L MCH 25.2 L MCHC 31.9 L RDW 23.0 H Plt Count 423 MPV 6.2 L Neut % (Auto) 93.1 H Lymph % (Auto) 1.7 L Bull[place] % (Auto) 5.0 Eos % (Auto) 0.0 Baso % (Auto) 0.2 Neut # (Auto) 18.8 H Lymph # (Auto) 0.3 L [place] # (Auto) 1.0 H Eos # (Auto) 0.0 Baso # (Auto) 0.0 WBC Differential . Differential Comment Auto diff final Sodium 144 Potassium 3.4 L Chloride 107 Carbon Dioxide 28.0 Anion Gap 9 BUN 10 Creatinine 0.80 Estimated GFR 84 L Random Glucose 166 H Calcium 8.8 MTS Gel Crossmatch See Detail - Imaging Impressions Venous Doppler Study 02/16/18 00:00 CONCLUSION: 1. 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 I cannot completely exclude recurrent acute thrombus. This is nonocclusive. - Procedures 1) Psoas abscess - Postoperative Diagnosis (1) Psoas abscess Date of procedure: 02/14/18 Procedure: Urologic surgery procedures: Cystoscopy and placement of bilateral ureteral catheters. Anesthesia: GETA Surgeon: Jeffry Beltre MD Operation and Findings: Indication for urologic procedures: Consulted intraoperatively to pass bilateral ureteral catheters to aid in visualization of this patient's ureters during her colorectal procedure. Urologic surgery procedures in detail: Concurrent with the colorectal surgeons, I proceeded with cystoscopy and placement of bilateral ureteral catheters. Initially cystoscopic evaluation was performed utilizing the rigid cystoscope with a 22 Kiswahili sheath and 30 lens. The patient was noted to have complete prolapse of the urinary bladder and this was manually reduced and held in place with gauze placed within the vaginal vault. There were no bladder mucosal lesions, calculi or diverticula formation noted. There are no areas suspicious for fistula formation. I proceeded with passing a sensor 0.035 wire up the patient's left ureter until a small amount of resistance was met. I then placed a 6 Kiswahili open-ended ureteral catheter 25 cm in a cephalad direction over the wire. Once the catheter was in place, the wire was withdrawn and reintroduced through secondary site via the cystoscope. In similar fashion the contralateral side was accomplished. A 16 Kisw[place]ili 10 cc Villatoro catheter was placed in both ureteral catheters were anchored to the Villatoro via a connector. All 3 catheters were then placed to gravity drainage. The vaginal packing was then removed. This completes the urologic surgery portion of combined procedures on this patient. Documented By: Jeffry Beltre MD 02/14/18 1635 02/14/2018 PREOPERATIVE DIAGNOSES: 1. Left pelvic abscess and subcutaneous wall abscess. 2. Colocutaneous fistula. POSTOPERATIVE DIAGNOSES: 1. Left pelvic abscess and subcutaneous wall abscess. 2. Colocutaneous fistula. PROCEDURES PERFORMED: 1. Debridement of left lower quadrant abdominal wall abscess. 2. Full left colectomy, with low anterior resection. 3. Small bowel resection. 4. Diverting loop ileostomy. 5. Mobilization of splenic flexure. 6. Omental flap. 7. Intraoperative colonoscopy. SURGEON: Aj Harrell MD Assessment and Plan - Plan Ms. Aguilera is a pleasant 82 y/o female with no prior history of hypertension who has been in the hospital since 02/01/18 for treatment of persistent psoas muscle abscesses. She has been having abnormally elevated blood pressures following surgery 02-14-18 and [facility] was consulted to assist to control blood pressure which was not responding to IV Enalapril. Hypertensive urgency likely secondary to increased intravascular volume combined with pain - will d/c enalapril and start PRN Clonidine 0.1 mg q6h PO prn sbp > 160 or DBP > 100, if HR > 60 - IVF running at 150 cc/hr at time of my visit; decreased rate to 75 cc/hr - monitor trends in bp; adjust treatments accordingly - continue [employer] pump as previously ordered - discussed with nursing Left posterior knee pain History of DVT, bilaterally - will check left lower extremity us to r/o DVT given history and risk factors though she does not appear classically symptomatic Leukocytosis, likely post-operative - WBC 17.2 on 02/15- was 7.9 on 02/14 - will follow CBC in a.m. - patient afebrile and without symptoms suggestive of infection; CXR with LLL atelectasis vs consolidation - if CBC increases, consider repeat x-ray - patient encouraged to use I/S A.m. labs vice president diversity for ostomy instructions and care PT and OT Code Status: Full code Discussed Condition With: RN and patient and memory care director nurse and case management and patient and family Discharge Planning: Pending clearance by colorectal surgery
[2018-02-16] MEDS ORDERED: Heparin - SQ 10,000 UNITS/ML Vial SQ SCH (14:00)
--- NOTE | 2018-02-16 14:49 | P.PNWCN ---
Wound Care Nurse Consult Description: Consult for New Ostomy Teaching of temporary RUQ loop ileostomy per Dr Harrell *BID dressing changes were ordered for wound management and can be carried out by nursing staff Communicated with: WANDA Thurman Patient Patient daughter at bedside Dr Frazier Recommendation: Assess stoma for color, moisture, and output. Empty pouch when 1/3-1/2 full. Change wafer/pouching system @3-5 days and PRN for leaks. Additional information: Patient seen on [facility] for ostomy assessment and teaching with demonstration. Bowel Diversion Stoma - Bowel Stoma Right Upper Abdomen Stoma Appearance: Protruding (moderately), Round (red, moist) Collection Device: Two-piece Wafer Size: 2 1/4 Moldable Radha-Stomal Surrounding Tissue Sensation Description: No Symptoms (Patient has no complaints of pain, burning, stinging, or itching from underneath wafer that is noted to be intact with no output noted. Peristomal skin and mucocutaneous junction not visualized at this time.) - Additional Information Additional Information: Educational material left at bedside for family
[2018-02-17] MEDS: Ampicillin/Sulbactam Inj 3 GM in Sodium Chloride 0.9% Inj 100 ML IV.SIG SCH (01:24)
[2018-02-17] MEDS: Heparin - SQ 10,000 UNITS/ML Vial SQ SCH (01:24)
[2018-02-17 03:09] LABS: Baso % (Auto) 0.1 % (0.0-2.0); Hematocrit 30.4 % (35.0-46.0); Hemoglobin 9.4 gm/dL (11.6-15.3); Lymph # (Auto) 0.3 th/mm3 (1.0-4.8); Lymph % (Auto) 1.6 % (9.0-44.0); Mean Corpuscular Hemoglobin 24.6 pg (27.0-34.0); Mean Platelet Volume 6.6 fL (7.0-11.0); Mono # (Auto) 0.6 th/mm3 (0.0-0.9); Mono % (Auto) 2.7 % (0.0-8.0); Neut # (Auto) 20.4 th/mm3 (1.8-7.7); Neut % (Auto) 95.6 % (16.0-70.0); Platelet Count 437 th/mm3 (150-450); Red Cell Distribution Width 22.5 % (11.6-17.2); White Blood Count 21.3 th/mm3 (4.0-11.0)
[2018-02-17 03:15] LABS: Mean Corpuscular HGB Conc 30.7 % (32.0-36.0)
[2018-02-17 03:55] LABS: Alanine Aminotransferase 14 U/L (10-53); Albumin 2.2 g/dL (3.4-5.0); Alkaline Phosphatase 62 U/L (45-117); Anion Gap 11 meq/L (5-15); Aspartate Aminotransferase 15 U/L (15-37); Blood Urea Nitrogen 12 mg/dL (7-18); Calcium 8.8 mg/dL (8.5-10.1); Carbon Dioxide 27.6 meq/L (21.0-32.0); Chloride 102 meq/L (98-107); Free T4 (Free Thyroxine) 1.18 ng/dL (0.76-1.46); Glomerular Filtration Rate 89 mL/min (>89); Glucose,Random 111 mg/dL (74-106); Magnesium 1.4 mg/dL (1.5-2.5); Phosphorus 2.6 mg/dL (2.5-4.9); Sodium 141 meq/L (136-145); Total Protein 5.6 g/dL (6.4-8.2)
[2018-02-17 03:57] LABS: Potassium 2.9 meq/L (3.5-5.1)
--- NOTE | 2018-02-17 08:49 | P.PNCS ---
Subjective Interval history: Not much pain. Stooling. No N or V. Objective Vital Signs/Intake & Output: Vital Signs 02/16/18 09:00 02/16/18 10:00 02/16/18 11:00 Temperature Pulse Rate 82 84 89 Respiratory Rate Blood Pressure Pulse Oximetry 02/16/18 12:00 02/16/18 13:00 02/16/18 14:00 Temperature 98.8 F Pulse Rate 82 77 82 Respiratory Rate 16 Blood Pressure 171/99 H Pulse Oximetry 97 02/16/18 15:00 02/16/18 16:00 02/16/18 17:00 Temperature 98.2 F Pulse Rate 67 70 79 Respiratory Rate 16 Blood Pressure 154/84 H Pulse Oximetry 99 02/16/18 17:30 02/16/18 18:00 02/16/18 19:30 Temperature Pulse Rate 76 79 Respiratory Rate Blood Pressure Pulse Oximetry 99 02/16/18 20:00 02/16/18 21:00 02/16/18 22:00 Temperature 98.7 F Pulse Rate 77 74 74 Respiratory Rate 16 Blood Pressure 169/93 H Pulse Oximetry 97 02/16/18 23:00 02/17/18 00:00 02/17/18 01:00 Temperature Pulse Rate 72 76 76 Respiratory Rate 16 Blood Pressure 160/87 H Pulse Oximetry 96 02/17/18 02:00 02/17/18 03:00 02/17/18 04:00 Temperature Pulse Rate 78 74 76 Respiratory Rate 16 Blood Pressure Pulse Oximetry 02/17/18 05:00 02/17/18 06:00 Temperature Pulse Rate 70 72 Respiratory Rate Blood Pressure Pulse Oximetry Intake & Output 02/16/18 02/17/18 02/17/18 18:59 06:59 18:59 Intake Total 3120 / 3120 660 / 660 Output Total 995 / 995 1210 / 1210 Balance 2125 / 2125 -550 / -550 Weight 55.2 kg Intake: IV 2400 / 2400 300 / 300 D5W/LR + KCL 20 mEq Inj 1,000 2000 / 2000 ML @ 30 mls/hr IV.CONT .Q24H [facility] Rx#:[id number] Unasyn Inj 3 GM In NS Inj 100 200 / 200 200 / 200 ML @ 200 mls/hr IV.SIG Q6H [facility] Rx#:[id number] KCl 20 mEq Premix Inj 20 meq In 100 / 100 100 ml @ 50 mls/hr IV.SIG UNSCH PRN Rx#:[id number] Flagyl 500 MG Inj 100 ML @ 100 100 / 100 100 / 100 mls/hr IV.SIG Q8H [facility] Rx#: [id number] Oral 720 / 720 360 / 360 Output: Urine 1210 / 1210 Urine Amount (Catheter) 830 / 830 Indwelling Urethral Catheter 830 / 830 Wound Drainage 165 / 165 # 1 Right Lower Abdomen 60 / 60 # 2 Left Lower Abdomen 105 / 105 Other: Date of Last Bowel Movement 02/13/18 02/17/18 Result Diagrams: 02/17/18 02:30 02/17/18 02:30 Laboratory Results: Laboratory Results - last 24 hr 02/17/18 02/17/18 02:30 02:30 WBC 21.3 H RBC 3.80 L Hgb 9.4 L Hct 30.4 L MCV 80.0 MCH 24.6 L MCHC 30.7 L RDW 22.5 H Plt Count 437 MPV 6.6 L Neut % (Auto) 95.6 H Lymph % (Auto) 1.6 L [place] % (Auto) 2.7 Eos % (Auto) 0.0 Baso % (Auto) 0.1 Neut # (Auto) 20.4 H Lymph # (Auto) 0.3 L [place] # (Auto) 0.6 Eos # (Auto) 0.0 Baso # (Auto) 0.0 WBC Differential . Differential Comment Auto diff final Sodium 141 Potassium 2.9 L* Chloride 102 Carbon Dioxide 27.6 Anion Gap 11 BUN 12 Creatinine 0.76 Estimated GFR 89 Random Glucose 111 H Calcium 8.8 Phosphorus 2.6 Magnesium 1.4 L Total Bilirubin 0.3 AST 15 ALT 14 Alkaline Phosphatase 62 Total Protein 5.6 L Albumin 2.2 L TSH 4.060 H Free T4 1.18 Imaging Studies: Impressions Venous Doppler Study 02/16/18 00:00 CONCLUSION: 1. 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 I cannot completely exclude recurrent acute thrombus. This is nonocclusive. Medications: Active Medications Hydrocodone Bitart/Acetaminophen ([place] 5/325) 1 tab PO Q4H PRN PRN Reason: PAIN SCALE 1 TO 4 Hydrocodone Bitart/Acetaminophen ([place] 5/325) 2 tab PO Q4H PRN PRN Reason: PAIN SCALE 5 TO 10 Last Admin: 02/17/18 02:03 Dose: 2 tab Alvimopan (Entereg) 12 mg PO BID [facility] Stop: 02/21/18 21:01 Last Admin: 02/16/18 21:48 Dose: 12 mg Benzocaine/Menthol (Chloraseptic Sore Throat Lozenge) 1 lozenge BUCCAL PRN PRN PRN Reason: SORE THROAT Chlorhexidine Gluconate (Chlorhexidine 2% Cloth) 3 pack [employer] [facility] Stop: 02/17/18 14:31 Clonidine HCl (Catapres) 0.1 mg PO Q6H PRN PRN Reason: SBP > 160 and/or DBP > 100 Last Admin: 02/15/18 22:27 Dose: 0.1 mg Dabigatran (Pradaxa) 150 mg PO BID [facility] Furosemide (Lasix Inj) 20 mg IV.PUSH Q12H [facility] Last Admin: 02/16/18 21:59 Dose: 20 mg Hydrocortisone Sodium Succinate (Solucortef Inj) 100 mg IV.PUSH Q12HR [facility] Last Admin: 02/16/18 21:49 Dose: 100 mg Metronidazole/Sodium Chloride (Flagyl 500 Mg Inj) 100 mls @ 100 mls/hr IV.SIG Q8H [facility] Last Admin: 02/17/18 05:13 Dose: 100 mls/hr Potassium Cl/Dextrose/Lact Ringer's (D5w/Lr + Kcl 20 Meq Inj) 1,000 mls @ 30 mls/hr IV.CONT .Q24H [facility] Last Admin: 02/16/18 14:04 Dose: 30 mls/hr Potassium Chloride (Kcl 20 Meq Premix Inj) 20 meq in 100 mls @ 50 mls/hr IV.SIG UNSCH PRN PRN Reason: for K+ level 3.0-3.5 Last Infusion: 02/16/18 10:29 Dose: Infused Potassium Chloride (Kcl 40 Meq Premix Inj) 40 meq in 100 mls @ 25 mls/hr IV.SIG UNSCH PRN PRN Reason: for K= level < 3.0 Metoclopramide HCl (Reglan Inj) 10 mg IV.PUSH Q6HR [facility]; Protocol Last Admin: 02/17/18 01:23 Dose: 10 mg Metoprolol Tartrate (Lopressor) 25 mg PO [employer] [facility] Stop: 02/17/18 14:31 Naloxone HCl (Narcan Inj) 0.4 mg IV.PUSH PRN PRN PRN Reason: Resp rate < 10 Ondansetron HCl (Zofran Odt) 4 mg PO Q6H PRN PRN Reason: NAUSEA OR VOMITING Pantoprazole Sodium (Protonix Inj) 40 mg IV.PUSH DAILY [facility] Last Admin: 02/16/18 09:41 Dose: 40 mg Povidone Iodine (Betadine 5% Antisepsis Kit) 1 applicatio EACH [employer] [facility] Stop: 02/17/18 14:31 Sodium Chloride (Ns Flush) 2 ml IV.FLUSH BID [facility] Last Admin: 02/16/18 21:50 Dose: 2 ml Sodium Chloride (Ns Flush) 2 ml IV.FLUSH PRN PRN PRN Reason: FLUSH AFTER USING IV ACCESS Last Admin: 02/16/18 05:20 Dose: 2 ml Spironolactone (Aldactone) 25 mg PO DAILY [facility] Zolpidem Tartrate (Ambien) 5 mg PO HS PRN PRN Reason: INSOMNIA Objective Remarks: VS-S Abd: soft,wound clean. Groin wound clean. Drains clean serous Assessment and Plan - Plan Doing well. OOB. Reg diet. Ambulate. D/C Unasyn. Replace KCl. Restart Spironolactone
[2018-02-17] MEDS ORDERED: Magnesium Sulfate Inj 2 GM in Sodium Chlor 0.9% Inj 96 ML IV.SIG ONE (09:08)
[2018-02-17] MEDS: Pantoprazole Inj 40 MG Vial IV.PUSH SCH (09:30)
[2018-02-17] MEDS: Spironolactone 25 MG Tablet PO SCH (09:31)
[2018-02-17] MEDS: Hydrocortisone Sod Succinate 100 MG Vial IV.PUSH SCH ×2 (09:33→21:33)
--- NOTE | 2018-02-17 13:00 | P.PNIM ---
Subjective Interval history: Ms. Aguilera is a pleasant 82 y/o female with no prior history of hypertension who has been in the hospital since 02/01/18 for treatment of persistent psoas muscle abscesses. She has been having abnormally elevated blood pressures following surgery 02-14-18 and [facility] was consulted to assist to control blood pressure which was not responding to IV Enalapril. The patient is seen in the [facility]. She does not appear in any distress but reports post-operative abdominal pain as a while also stating it doesn't hurt "that bad". She reports relief with [employer]. Worsened with movement. She denies any headaches, weakness, speech problems, dizziness, chest pain, shortness of breath, or dyspnea. She reports a mild pain behind her right knee. She reports post-operative nausea yesterday but has had none today and never vomited. 02-16 LEFT LEG DVT NOTED ON DOPPLER WORKING WITH WOUND CARE REGARDING OSTOMY AM LABS HAS LEUKOCYTOSIS DW RN AND PT AND FAMILY AND CM 02-17 STILL HAS LEUKOCYTOSIS WORKING WITH RN PT AND OT DW RN AND PT AND FAMILY AND CM Physical Exam Vital signs: Vital Signs 02/16/18 13:00 02/16/18 14:00 02/16/18 15:00 Temperature Pulse Rate 77 82 67 Respiratory Rate Blood Pressure Pulse Oximetry 02/16/18 16:00 02/16/18 17:00 02/16/18 17:30 Temperature 98.2 F Pulse Rate 70 79 Respiratory Rate 16 Blood Pressure 154/84 H Pulse Oximetry 99 99 02/16/18 18:00 02/16/18 19:30 02/16/18 20:00 Temperature 98.7 F Pulse Rate 76 79 77 Respiratory Rate 16 Blood Pressure 169/93 H Pulse Oximetry 97 02/16/18 21:00 02/16/18 22:00 02/16/18 23:00 Temperature Pulse Rate 74 74 72 Respiratory Rate Blood Pressure Pulse Oximetry 02/17/18 00:00 02/17/18 01:00 02/17/18 02:00 Temperature Pulse Rate 76 76 78 Respiratory Rate 16 Blood Pressure 160/87 H Pulse Oximetry 96 02/17/18 03:00 02/17/18 04:00 02/17/18 05:00 Temperature Pulse Rate 74 76 70 Respiratory Rate 16 Blood Pressure Pulse Oximetry 02/17/18 06:00 02/17/18 08:00 Temperature 98.7 F Pulse Rate 72 78 Respiratory Rate 18 Blood Pressure 164/91 H Pulse Oximetry 98 Intake & Output 02/16/18 02/17/18 02/17/18 18:59 06:59 18:59 Intake Total 3120 / 3120 760 / 760 Output Total 995 / 995 1210 / 1210 Balance 2125 / 2125 -450 / -450 Weight 55.2 kg Intake: IV 2400 / 2400 400 / 400 D5W/LR + KCL 20 mEq Inj 1,000 2000 / 2000 ML @ 30 mls/hr IV.CONT .Q24H [facility] Rx#:[id number] Unasyn Inj 3 GM In NS Inj 100 200 / 200 200 / 200 ML @ 200 mls/hr IV.SIG Q6H [facility] Rx#:[id number] KCl 20 mEq Premix Inj 20 meq In 100 / 100 100 ml @ 50 mls/hr IV.SIG UNSCH PRN Rx#:[id number] Flagyl 500 MG Inj 100 ML @ 100 100 / 100 200 / 200 mls/hr IV.SIG Q8H [facility] Rx#: [id number] Oral 720 / 720 360 / 360 Output: Urine 1210 / 1210 Urine Amount (Catheter) 830 / 830 Indwelling Urethral Catheter 830 / 830 Wound Drainage 165 / 165 # 1 Right Lower Abdomen 60 / 60 # 2 Left Lower Abdomen 105 / 105 Other: Date of Last Bowel Movement 02/13/18 02/17/18 02/17/18 Narrative: GENERAL: Awake and alert talkative and cooperative some confusion SKIN: Warm and dry. HEAD: Atraumatic. Normocephalic. EYES: Pupils equal and round. No scleral icterus. No injection or drainage. ENT: No nasal bleeding or discharge. Mucous membranes pink and moist. NECK: Trachea midline. No JVD. CARDIOVASCULAR: Regular rate and rhythm. S1-S2 no S3 or S4 RESPIRATORY: No accessory muscle use. Clear to auscultation. Breath sounds equal bilaterally. GASTROINTESTINAL: Abdomen soft, non-tender, nondistended. Hepatic and splenic margins not palpable. Has ostomy in place MUSCULOSKELETAL: Extremities without clubbing, cyanosis, or edema. No obvious deformities. Left lower extremity DVT NEUROLOGICAL: Awake and alert. No obvious cranial nerve deficits. Motor grossly within normal limits. 4 out of 5 muscle strength in the arms and legs. Normal speech. PSYCHIATRIC: INAppropriate mood and affect; insight and judgment ABnormal. - Urinary Catheter Management Straight Cath placed during this visit: yes Reason for continuing: Acute urinary retention Insertion date: 02/09/18 Insertion time: 10:30 Indwelling Urethral Catheter Cath placed during this visit: yes, but has since been removed by the nurse Reason for continuing: Other continuation reason Insertion date: 02/14/18 Insertion time: 16:30 Removal date: 02/14/18 Removal time: 16:03 Results - Labs CBC & Chem 7: 02/17/18 02:30 02/17/18 02:30 Laboratory Results - last 24 hr 02/17/18 02/17/18 02:30 02:30 WBC 21.3 H RBC 3.80 L Hgb 9.4 L Hct 30.4 L MCV 80.0 MCH 24.6 L MCHC 30.7 L RDW 22.5 H Plt Count 437 MPV 6.6 L Neut % (Auto) 95.6 H Lymph % (Auto) 1.6 L [place] % (Auto) 2.7 Eos % (Auto) 0.0 Baso % (Auto) 0.1 Neut # (Auto) 20.4 H Lymph # (Auto) 0.3 L [place] # (Auto) 0.6 Eos # (Auto) 0.0 Baso # (Auto) 0.0 WBC Differential . Differential Comment Auto diff final Sodium 141 Potassium 2.9 L* Chloride 102 Carbon Dioxide 27.6 Anion Gap 11 BUN 12 Creatinine 0.76 Estimated GFR 89 Random Glucose 111 H Calcium 8.8 Phosphorus 2.6 Magnesium 1.4 L Total Bilirubin 0.3 AST 15 ALT 14 Alkaline Phosphatase 62 Total Protein 5.6 L Albumin 2.2 L TSH 4.060 H Free T4 1.18 - Imaging ITS Impressions Abdomen/Pelvis CT 02/08/18 00:00 CONCLUSION: 1. Interval placement of drainage catheters within the left lower quadrant as detailed above with significant reduction in the fluid collections. 2. Interval development of moderate bilateral hydronephrosis and hydroureter with a well distended urinary bladder. This could relate to a functional bladder obstruction. Chest X-Ray 02/14/18 00:00 CONCLUSION: Right internal jugular central line in good position. Mild atelectasis or consolidation at the left base. Venous Doppler Study 02/16/18 00:00 CONCLUSION: 1. 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 I cannot completely exclude recurrent acute thrombus. This is nonocclusive. - Procedures 1) Psoas abscess - Postoperative Diagnosis (1) Psoas abscess Date of procedure: 02/14/18 Procedure: Urologic surgery procedures: Cystoscopy and placement of bilateral ureteral catheters. Anesthesia: GETA Surgeon: Jeffry Beltre MD Operation and Findings: Indication for urologic procedures: Consulted intraoperatively to pass bilateral ureteral catheters to aid in visualization of this patient's ureters during her colorectal procedure. Urologic surgery procedures in detail: Concurrent with the colorectal surgeons, I proceeded with cystoscopy and placement of bilateral ureteral catheters. Initially cystoscopic evaluation was performed utilizing the rigid cystoscope with a 22 [place] sheath and 30 lens. The patient was noted to have complete prolapse of the urinary bladder and this was manually reduced and held in place with gauze placed within the vaginal vault. There were no bladder mucosal lesions, calculi or diverticula formation noted. There are no areas suspicious for fistula formation. I proceeded with passing a sensor 0.035 wire up the patient's left ureter until a small amount of resistance was met. I then placed a 6 [place] open-ended ureteral catheter 25 cm in a cephalad direction over the wire. Once the catheter was in place, the wire was withdrawn and reintroduced through secondary site via the cystoscope. In similar fashion the contralateral side was accomplished. A 16 [place] 10 cc Villatoro catheter was placed in both ureteral catheters were anchored to the Villatoro via a connector. All 3 catheters were then placed to gravity drainage. The vaginal packing was then removed. This completes the urologic surgery portion of combined procedures on this patient. Documented By: Jeffry Beltre MD 02/14/18 1635 02/14/2018 PREOPERATIVE DIAGNOSES: 1. Left pelvic abscess and subcutaneous wall abscess. 2. Colocutaneous fistula. POSTOPERATIVE DIAGNOSES: 1. Left pelvic abscess and subcutaneous wall abscess. 2. Colocutaneous fistula. PROCEDURES PERFORMED: 1. Debridement of left lower quadrant abdominal wall abscess. 2. Full left colectomy, with low anterior resection. 3. Small bowel resection. 4. Diverting loop ileostomy. 5. Mobilization of splenic flexure. 6. Omental flap. 7. Intraoperative colonoscopy. SURGEON: Aj Harrell MD Assessment and Plan - Plan Ms. Aguilera is a pleasant 82 y/o female with no prior history of hypertension who has been in the hospital since 02/01/18 for treatment of persistent psoas muscle abscesses. She has been having abnormally elevated blood pressures following surgery 02-14-18 and [facility] was consulted to assist to control blood pressure which was not responding to IV Enalapril. Hypertensive urgency likely secondary to increased intravascular volume combined with pain - will d/c enalapril and start PRN Clonidine 0.1 mg q6h PO prn sbp > 160 or DBP > 100, if HR > 60 - IVF running at 150 cc/hr at time of my visit; decreased rate to 75 cc/hr - monitor trends in bp; adjust treatments accordingly - continue [employer] pump as previously ordered - discussed with nursing Left posterior knee pain History of DVT, bilaterally - will check left lower extremity us to r/o DVT given history and risk factors though she does not appear classically symptomatic Leukocytosis, likely post-operative - WBC 17.2 on 02/15- was 7.9 on 02/14 - will follow CBC in a.m. - patient afebrile and without symptoms suggestive of infection; CXR with LLL atelectasis vs consolidation - if CBC increases, consider repeat x-ray - patient encouraged to use I/S STILL CONTINUES TO INCREASE HYPOKALEMIA WILL REPLACE HYPOMAGNESIA WILL REPLACE A.m. labs [facility] for ostomy instructions and care PT and OT Code Status: FULL CODE Discussed Condition With: RN AND PT AND FAMILY AND CM Discharge Planning: Pending clearance by colorectal surgery
[2018-02-17 16:48] LABS: Hemoglobin A1c 4.9 % (4.3-6.0)
[2018-02-17] MEDS: KCL 20 mEq/D5W/LR Inj 1,000 ML IV.CONT SCH (17:37)
[2018-02-18] MEDS: KCL 20 mEq/D5W/LR Inj 1,000 ML IV.CONT SCH (01:09)
[2018-02-18 05:40] LABS: Baso % (Auto) 0.2 % (0.0-2.0); Hematocrit 30.2 % (35.0-46.0); Hemoglobin 9.5 gm/dL (11.6-15.3); Lymph # (Auto) 0.3 th/mm3 (1.0-4.8); Lymph % (Auto) 2.1 % (9.0-44.0); Mean Corpuscular HGB Conc 31.6 % (32.0-36.0); Mean Corpuscular Hemoglobin 25.2 pg (27.0-34.0); Mean Corpuscular Volume 79.6 fL (80.0-100.0); Mean Platelet Volume 6.6 fL (7.0-11.0); Mono # (Auto) 0.5 th/mm3 (0.0-0.9); Mono % (Auto) 3.6 % (0.0-8.0); Neut # (Auto) 11.8 th/mm3 (1.8-7.7); Neut % (Auto) 94.1 % (16.0-70.0); Platelet Count 409 th/mm3 (150-450); Red Blood Count 3.79 mil/mm3 (4.00-5.30); White Blood Count 12.6 th/mm3 (4.0-11.0)
[2018-02-18 06:00] LABS: Alanine Aminotransferase 11 U/L (10-53); Alkaline Phosphatase 63 U/L (45-117); Anion Gap 10 meq/L (5-15); Aspartate Aminotransferase 14 U/L (15-37); Blood Urea Nitrogen 13 mg/dL (7-18); Calcium 8.6 mg/dL (8.5-10.1); Carbon Dioxide 27.8 meq/L (21.0-32.0); Chloride 102 meq/L (98-107); Glomerular Filtration Rate Greater Than 89 mL/min (>89); Glucose,Random 118 mg/dL (74-106); Magnesium 1.8 mg/dL (1.5-2.5); Phosphorus 2.4 mg/dL (2.5-4.9); Sodium 140 meq/L (136-145); Total Protein 5.2 g/dL (6.4-8.2)
[2018-02-18 06:11] LABS: Potassium 2.8 meq/L (3.5-5.1)
[2018-02-18] MEDS: predniSONE 20 MG Tablet PO SCH (08:47)
[2018-02-18] MEDS: Pantoprazole Inj 40 MG Vial IV.PUSH SCH (08:49)
[2018-02-18] MEDS: Spironolactone 25 MG Tablet PO SCH (08:50)
--- NOTE | 2018-02-18 09:34 | P.PNWCN ---
Wound Care Nurse Consult Description: Follow up for New Ostomy Teaching of temporary RUQ loop ileostomy per Dr Harrell Communicated with: Patient's daughters Recommendation: Assess stoma for color, moisture, and output. Empty pouch when 1/3-1/2 full. Change wafer/pouching system @3-5 days and PRN for leaks. Use water only and a cloth to clean, and no soaps or lotions around stoma. How to release gas from pouch. Wound/Pressure Injury - Patient Status Premedicated for Pain Prior to Dressing Change: Yes - Wound Left Lower Abdomen Wound Assessment: Ongoing Wound Type: Puncture Is This a Chronic Wound: Yes Wound Drain - Drain # 1 Left Lower Abdomen Drainage Description: Serosanguinous Drainage Odor: None/Absent # 2 Right Lower Abdomen Drainage Description: Serous Drainage Odor: None/Absent # 1 Right Lower Abdomen Drainage Description: Serosanguinous Drainage Odor: None/Absent # 3 Left Lower Lateral Abdomen Drainage Description: Serosanguinous Drainage Odor: None/Absent # 2 Left Lower Abdomen Drainage Description: Serosanguinous Drainage Odor: None/Absent Incision - Incision Midline Abdomen Other Cover Dressing: FOAM TAPE DRG Support Dressing: Abdominal Binder Incision/Surgery Date: 02/15/18 Right Lower Abdomen Cover Dressing: Gauze Pads Support Dressing: Abdominal Binder Bowel Diversion Stoma - Bowel Stoma Right Upper Abdomen Stoma Appearance: Beefy Red Loop Supporting Mj: No Collection Device: Two-piece Drainage Description: Liquid, Brown Wafer Size: 2 1/4 Moldable Radha-Stomal Skin Appearance: Intact Radha-Stomal Surrounding Tissue Sensation Description: No Symptoms - Additional Information Additional Information: Spoke with family on properly caring for the pouch and peristomal care. Patient' s daughter emptied pouch and properly cleaned and closed it.
[2018-02-18] MEDS ORDERED: Magnesium Sulfate Inj 2 GM in Sodium Chlor 0.9% Inj 96 ML IV.SIG ONE (11:00)
--- NOTE | 2018-02-18 16:17 | P.PNIM ---
Subjective Interval history: Ms. Aguilera is a pleasant 82 y/o female with no prior history of hypertension who has been in the hospital since 02/01/18 for treatment of persistent psoas muscle abscesses. She has been having abnormally elevated blood pressures following surgery 02-14-18 and [facility] was consulted to assist to control blood pressure which was not responding to IV Enalapril. The patient is seen in the [facility]. She does not appear in any distress but reports post-operative abdominal pain as a while also stating it doesn't hurt "that bad". She reports relief with MATERNAL CHILD NURSE. Worsened with movement. She denies any headaches, weakness, speech problems, dizziness, chest pain, shortness of breath, or dyspnea. She reports a mild pain behind her right knee. She reports post-operative nausea yesterday but has had none today and never vomited. 02-16 LEFT LEG DVT NOTED ON DOPPLER WORKING WITH WOUND CARE REGARDING OSTOMY AM LABS HAS LEUKOCYTOSIS DW RN AND PT AND FAMILY AND CM 02-17 STILL HAS LEUKOCYTOSIS WORKING WITH RN PT AND OT DW RN AND PT AND FAMILY AND CM 02-18 TO BE DISCHARGED BY COLORECTAL SURGERY TOMORROW AM LABS DW PATIENT AND RN AND CASE MANAGEMENT RECHECK POTASSIUM AND MAG IF STABLE DC IN AM Physical Exam Vital signs: Vital Signs 02/17/18 17:00 02/17/18 17:57 02/17/18 18:00 Temperature Pulse Rate 70 76 Respiratory Rate Blood Pressure Pulse Oximetry 98 02/17/18 20:00 02/17/18 21:00 02/17/18 22:00 Temperature 98.6 F Pulse Rate 64 74 62 Respiratory Rate 16 Blood Pressure 180/89 H Pulse Oximetry 98 02/17/18 23:00 02/18/18 00:00 02/18/18 01:00 Temperature 98.5 F Pulse Rate 70 65 68 Respiratory Rate 16 Blood Pressure 175/94 H Pulse Oximetry 98 02/18/18 02:00 02/18/18 03:00 02/18/18 04:00 Temperature 98.6 F Pulse Rate 70 70 66 Respiratory Rate 16 Blood Pressure 166/93 H Pulse Oximetry 98 02/18/18 05:00 02/18/18 06:00 02/18/18 07:00 Temperature Pulse Rate 60 71 62 Respiratory Rate Blood Pressure Pulse Oximetry 02/18/18 08:00 02/18/18 09:00 02/18/18 10:00 Temperature 98.0 F Pulse Rate 65 68 66 Respiratory Rate 16 Blood Pressure 172/89 H Pulse Oximetry 98 02/18/18 11:00 02/18/18 12:00 02/18/18 13:00 Temperature 98.5 F Pulse Rate 54 L 62 60 Respiratory Rate 16 Blood Pressure 135/75 Pulse Oximetry 02/18/18 14:00 02/18/18 15:00 02/18/18 16:00 Temperature 98.0 F Pulse Rate 89 71 62 Respiratory Rate 18 Blood Pressure 138/72 Pulse Oximetry Intake & Output 02/17/18 02/18/18 02/18/18 18:59 06:59 18:59 Intake Total 1100 / 1100 1820 / 1820 100 / 100 Output Total 70 / 70 1963 / 1963 Balance 1030 / 1030 -145 / -145 100 / 100 Weight 55 kg Intake: IV 1100 / 1100 1100 / 1100 100 / 100 D5W/LR + KCL 20 mEq Inj 1,000 1000 / 1000 1000 / 1000 ML @ 30 mls/hr IV.CONT .Q24H [facility] Rx#:[id number] Magnesium Sulfate Inj 2 GM In 0 / 0 NS Inj 96 ML @ 50 mls/hr IV.SIG ONCE ONE Rx#:[id number] Flagyl 500 MG Inj 100 ML @ 100 100 / 100 100 / 100 100 / 100 mls/hr IV.SIG Q8H [facility] Rx#: [id number] Oral 720 / 720 Output: Urine 1550 / 1550 Stool Amount (Stoma) 325 / 325 Right Upper Abdomen 325 / 325 Wound Drainage 70 / 70 90 / 90 # 1 Right Lower Abdomen 30 / 30 50 / 50 # 2 Left Lower Abdomen 40 / 40 40 / 40 Other: Date of Last Bowel Movement 02/17/18 02/17/18 02/17/18 Narrative: GENERAL: Awake and alert talkative and cooperative some confusion SKIN: Warm and dry. HEAD: Atraumatic. Normocephalic. EYES: Pupils equal and round. No scleral icterus. No injection or drainage. ENT: No nasal bleeding or discharge. Mucous membranes pink and moist. NECK: Trachea midline. No JVD. CARDIOVASCULAR: Regular rate and rhythm. S1-S2 no S3 or S4 RESPIRATORY: No accessory muscle use. Clear to auscultation. Breath sounds equal bilaterally. GASTROINTESTINAL: Abdomen soft, non-tender, nondistended. Hepatic and splenic margins not palpable. Has ostomy in place MUSCULOSKELETAL: Extremities without clubbing, cyanosis, or edema. No obvious deformities. Left lower extremity DVT NEUROLOGICAL: Awake and alert. No obvious cranial nerve deficits. Motor grossly within normal limits. 4 out of 5 muscle strength in the arms and legs. Normal speech. PSYCHIATRIC: INAppropriate mood and affect; insight and judgment ABnormal. - Urinary Catheter Management Straight Cath placed during this visit: yes Reason for continuing: Acute urinary retention Insertion date: 02/09/18 Insertion time: 10:30 Indwelling Urethral Catheter Cath placed during this visit: yes, but has since been removed by the nurse Reason for continuing: Other continuation reason Insertion date: 02/14/18 Insertion time: 16:30 Removal date: 02/14/18 Removal time: 16:03 Results - Labs CBC & Chem 7: 02/18/18 04:01 02/18/18 04:01 Laboratory Results - last 24 hr 02/17/18 02/18/18 02/18/18 02:30 04:01 04:01 WBC 12.6 H RBC 3.79 L Hgb 9.5 L Hct 30.2 L MCV 79.6 L MCH 25.2 L MCHC 31.6 L RDW 22.0 H Plt Count 409 MPV 6.6 L Neut % (Auto) 94.1 H Lymph % (Auto) 2.1 L [place] % (Auto) 3.6 Eos % (Auto) 0.0 Baso % (Auto) 0.2 Neut # (Auto) 11.8 H Lymph # (Auto) 0.3 L [place] # (Auto) 0.5 Eos # (Auto) 0.0 Baso # (Auto) 0.0 WBC Differential . Differential Comment Auto diff final Sodium 140 Potassium 2.8 L* Chloride 102 Carbon Dioxide 27.8 Anion Gap 10 BUN 13 Creatinine 0.69 Estimated GFR Greater than 89 Random Glucose 118 H Hemoglobin A1c 4.9 Calcium 8.6 Phosphorus 2.4 L Magnesium 1.8 Total Bilirubin 0.3 AST 14 L ALT 11 Alkaline Phosphatase 63 Total Protein 5.2 L Albumin 2.0 L - Imaging ITS Impressions Abdomen/Pelvis CT 02/08/18 00:00 CONCLUSION: 1. Interval placement of drainage catheters within the left lower quadrant as detailed above with significant reduction in the fluid collections. 2. Interval development of moderate bilateral hydronephrosis and hydroureter with a well distended urinary bladder. This could relate to a functional bladder obstruction. Chest X-Ray 02/14/18 00:00 CONCLUSION: Right internal jugular central line in good position. Mild atelectasis or consolidation at the left base. Venous Doppler Study 02/16/18 00:00 CONCLUSION: 1. 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 I cannot completely exclude recurrent acute thrombus. This is nonocclusive. - Procedures 1) Psoas abscess - Postoperative Diagnosis (1) Psoas abscess Date of procedure: 02/14/18 Procedure: Urologic surgery procedures: Cystoscopy and placement of bilateral ureteral catheters. Anesthesia: GETA Surgeon: Jeffry Beltre MD Operation and Findings: Indication for urologic procedures: Consulted intraoperatively to pass bilateral ureteral catheters to aid in visualization of this patient's ureters during her colorectal procedure. Urologic surgery procedures in detail: Concurrent with the colorectal surgeons, I proceeded with cystoscopy and placement of bilateral ureteral catheters. Initially cystoscopic evaluation was performed utilizing the rigid cystoscope with a 22 Turkish sheath and 30 lens. The patient was noted to have complete prolapse of the urinary bladder and this was manually reduced and held in place with gauze placed within the vaginal vault. There were no bladder mucosal lesions, calculi or diverticula formation noted. There are no areas suspicious for fistula formation. I proceeded with passing a sensor 0.035 wire up the patient's left ureter until a small amount of resistance was met. I then placed a 6 Turkish open-ended ureteral catheter 25 cm in a cephalad direction over the wire. Once the catheter was in place, the wire was withdrawn and reintroduced through secondary site via the cystoscope. In similar fashion the contralateral side was accomplished. A 16 Turkish 10 cc Villatoro catheter was placed in both ureteral catheters were anchored to the Villatoro via a connector. All 3 catheters were then placed to gravity drainage. The vaginal packing was then removed. This completes the urologic surgery portion of combined procedures on this patient. Documented By: Jeffry Beltre MD 02/14/18 1635 02/14/2018 PREOPERATIVE DIAGNOSES: 1. Left pelvic abscess and subcutaneous wall abscess. 2. Colocutaneous fistula. POSTOPERATIVE DIAGNOSES: 1. Left pelvic abscess and subcutaneous wall abscess. 2. Colocutaneous fistula. PROCEDURES PERFORMED: 1. Debridement of left lower quadrant abdominal wall abscess. 2. Full left colectomy, with low anterior resection. 3. Small bowel resection. 4. Diverting loop ileostomy. 5. Mobilization of splenic flexure. 6. Omental flap. 7. Intraoperative colonoscopy. SURGEON: Aj Harrell MD Assessment and Plan - Plan Ms. Aguilera is a pleasant 82 y/o female with no prior history of hypertension who has been in the hospital since 02/01/18 for treatment of persistent psoas muscle abscesses. She has been having abnormally elevated blood pressures following surgery 02-14-18 and [facility] was consulted to assist to control blood pressure which was not responding to IV Enalapril. Hypertensive urgency likely secondary to increased intravascular volume combined with pain - will d/c enalapril and start PRN Clonidine 0.1 mg q6h PO prn sbp > 160 or DBP > 100, if HR > 60 - IVF running at 150 cc/hr at time of my visit; decreased rate to 75 cc/hr - monitor trends in bp; adjust treatments accordingly - continue MATERNAL CHILD NURSE pump as previously ordered - discussed with nursing Left posterior knee pain History of DVT, bilaterally - will check left lower extremity us to r/o DVT given history and risk factors though she does not appear classically symptomatic Leukocytosis, likely post-operative - WBC 17.2 on 02/15- was 7.9 on 02/14 - will follow CBC in a.m. - patient afebrile and without symptoms suggestive of infection; CXR with LLL atelectasis vs consolidation - if CBC increases, consider repeat x-ray - patient encouraged to use I/S STILL CONTINUES TO INCREASE HYPOKALEMIA WILL REPLACE HYPOMAGNESIA WILL REPLACE A.m. labs chief meter reader for ostomy instructions and care PT and OT Code Status: FULL CODE Discussed Condition With: RN AND PT AND CM AND COLORECTAL SURGERY Discharge Planning: Pending clearance by colorectal surgery
--- NOTE | 2018-02-18 16:28 | P.PNCS ---
Subjective Interval history: No Nor V. Ileostomy working. Objective Vital Signs/Intake & Output: Vital Signs 02/17/18 17:00 02/17/18 17:57 02/17/18 18:00 Temperature Pulse Rate 70 76 Respiratory Rate Blood Pressure Pulse Oximetry 98 02/17/18 20:00 02/17/18 21:00 02/17/18 22:00 Temperature 98.6 F Pulse Rate 64 74 62 Respiratory Rate 16 Blood Pressure 180/89 H Pulse Oximetry 98 02/17/18 23:00 02/18/18 00:00 02/18/18 01:00 Temperature 98.5 F Pulse Rate 70 65 68 Respiratory Rate 16 Blood Pressure 175/94 H Pulse Oximetry 98 02/18/18 02:00 02/18/18 03:00 02/18/18 04:00 Temperature 98.6 F Pulse Rate 70 70 66 Respiratory Rate 16 Blood Pressure 166/93 H Pulse Oximetry 98 02/18/18 05:00 02/18/18 06:00 02/18/18 07:00 Temperature Pulse Rate 60 71 62 Respiratory Rate Blood Pressure Pulse Oximetry 02/18/18 08:00 02/18/18 09:00 02/18/18 10:00 Temperature 98.0 F Pulse Rate 65 68 66 Respiratory Rate 16 Blood Pressure 172/89 H Pulse Oximetry 98 02/18/18 11:00 02/18/18 12:00 02/18/18 13:00 Temperature 98.5 F Pulse Rate 54 L 62 60 Respiratory Rate 16 Blood Pressure 135/75 Pulse Oximetry 02/18/18 14:00 02/18/18 15:00 02/18/18 16:00 Temperature 98.0 F Pulse Rate 89 71 62 Respiratory Rate 18 Blood Pressure 138/72 Pulse Oximetry Intake & Output 02/17/18 02/18/18 02/18/18 18:59 06:59 18:59 Intake Total 1100 / 1100 1820 / 1820 100 / 100 Output Total 70 / 70 1963 / 1963 Balance 1030 / 1030 -145 / -145 100 / 100 Weight 55 kg Intake: IV 1100 / 1100 1100 / 1100 100 / 100 D5W/LR + KCL 20 mEq Inj 1,000 1000 / 1000 1000 / 1000 ML @ 30 mls/hr IV.CONT .Q24H REPLACED BY [facility] Rx#:[id number] Magnesium Sulfate Inj 2 GM In 0 / 0 NS Inj 96 ML @ 50 mls/hr IV.SIG ONCE ONE Rx#:[id number] Flagyl 500 MG Inj 100 ML @ 100 100 / 100 100 / 100 100 / 100 mls/hr IV.SIG Q8H [facility] Rx#: [id number] Oral 720 / 720 Output: Urine 1550 / 1550 Stool Amount (Stoma) 325 / 325 Right Upper Abdomen 325 / 325 Wound Drainage 70 / 70 90 / 90 # 1 Right Lower Abdomen 30 / 30 50 / 50 # 2 Left Lower Abdomen 40 / 40 40 / 40 Other: Date of Last Bowel Movement 02/17/18 02/17/18 02/17/18 Result Diagrams: 02/18/18 04:01 02/18/18 04:01 Laboratory Results: Laboratory Results - last 24 hr 02/17/18 02/18/18 02/18/18 02:30 04:01 04:01 WBC 12.6 H RBC 3.79 L Hgb 9.5 L Hct 30.2 L MCV 79.6 L MCH 25.2 L MCHC 31.6 L RDW 22.0 H Plt Count 409 MPV 6.6 L Neut % (Auto) 94.1 H Lymph % (Auto) 2.1 L [place] % (Auto) 3.6 Eos % (Auto) 0.0 Baso % (Auto) 0.2 Neut # (Auto) 11.8 H Lymph # (Auto) 0.3 L [place] # (Auto) 0.5 Eos # (Auto) 0.0 Baso # (Auto) 0.0 WBC Differential . Differential Comment Auto diff final Sodium 140 Potassium 2.8 L* Chloride 102 Carbon Dioxide 27.8 Anion Gap 10 BUN 13 Creatinine 0.69 Estimated GFR Greater than 89 Random Glucose 118 H Hemoglobin A1c 4.9 Calcium 8.6 Phosphorus 2.4 L Magnesium 1.8 Total Bilirubin 0.3 AST 14 L ALT 11 Alkaline Phosphatase 63 Total Protein 5.2 L Albumin 2.0 L Medications: Active Medications Hydrocodone Bitart/Acetaminophen ([place] 5/325) 1 tab PO Q4H PRN PRN Reason: PAIN SCALE 1 TO 4 Hydrocodone Bitart/Acetaminophen ([place] 5/325) 2 tab PO Q4H PRN PRN Reason: PAIN SCALE 5 TO 10 Last Admin: 02/17/18 21:32 Dose: 2 tab Alvimopan (Entereg) 12 mg PO BID REPLACED BY [facility] Stop: 02/21/18 21:01 Last Admin: 02/18/18 08:47 Dose: 12 mg Benzocaine/Menthol (Chloraseptic Sore Throat Lozenge) 1 lozenge BUCCAL PRN PRN PRN Reason: SORE THROAT Clonidine HCl (Catapres) 0.1 mg PO Q6H PRN PRN Reason: SBP > 160 and/or DBP > 100 Last Admin: 02/18/18 07:44 Dose: 0.1 mg Dabigatran (Pradaxa) 150 mg PO BID REPLACED BY [facility] Last Admin: 02/18/18 08:49 Dose: 150 mg Furosemide (Lasix Inj) 20 mg IV.PUSH Q12H REPLACED BY [facility] Last Admin: 02/18/18 11:13 Dose: 20 mg Potassium Cl/Dextrose/Lact Ringer's (D5w/Lr + Kcl 20 Meq Inj) 1,000 mls @ 30 mls/hr IV.CONT .Q24H REPLACED BY [facility] Last Admin: 02/18/18 01:09 Dose: 30 mls/hr Potassium Chloride (Kcl 20 Meq Premix Inj) 20 meq in 100 mls @ 50 mls/hr IV.SIG UNSCH PRN PRN Reason: for K+ level 3.0-3.5 Last Infusion: 02/16/18 10:29 Dose: Infused Potassium Chloride (Kcl 40 Meq Premix Inj) 40 meq in 100 mls @ 25 mls/hr IV.SIG UNSCH PRN PRN Reason: for K= level < 3.0 Metoclopramide HCl (Reglan Inj) 10 mg IV.PUSH Q6HR REPLACED BY [facility]; Protocol Last Admin: 02/18/18 11:14 Dose: 10 mg Naloxone HCl (Narcan Inj) 0.4 mg IV.PUSH PRN PRN PRN Reason: Resp rate < 10 Ondansetron HCl (Zofran Odt) 4 mg PO Q6H PRN PRN Reason: NAUSEA OR VOMITING Pantoprazole Sodium (Protonix Inj) 40 mg IV.PUSH DAILY REPLACED BY [facility] Last Admin: 02/18/18 08:49 Dose: 40 mg Potassium Chloride (Klor-Con 10) 40 meq PO BID REPLACED BY [facility] Last Admin: 02/18/18 10:30 Dose: 40 meq Prednisone (Deltasone) 20 mg PO DAILY REPLACED BY [facility] Last Admin: 02/18/18 08:47 Dose: 20 mg Sodium Chloride (Ns Flush) 2 ml IV.FLUSH BID REPLACED BY [facility] Last Admin: 02/18/18 08:48 Dose: 2 ml Sodium Chloride (Ns Flush) 2 ml IV.FLUSH PRN PRN PRN Reason: FLUSH AFTER USING IV ACCESS Last Admin: 02/16/18 05:20 Dose: 2 ml Spironolactone (Aldactone) 25 mg PO DAILY REPLACED BY [facility] Last Admin: 02/18/18 08:50 Dose: 25 mg Zolpidem Tartrate (Ambien) 5 mg PO HS PRN PRN Reason: INSOMNIA Objective Remarks: VS-S Abd: wound clean,drains clean Assessment and Plan - Plan Doing well. OOB. Reg diet. Ambulating with help. D/C in AM
--- NOTE | 2018-02-18 17:38 | P.PNWCN ---
Wound Care Nurse Consult Description: Follow up for New Ostomy Teaching of ileostomy per Dr Harrell Communicated with: Patient Patient daughters at bedside Dr Harrell Recommendation: Assess stoma for color, moisture, and output. Empty pouch when 1/3-1/2 full. Change wafer/pouching system 3-5 days and PRN for leaks. Additional information: Patient seen on [facility] for ostomy assessment, teaching, and pouching system change with demonstration. Starter kit ordered today. Script left on chart for supplies. Bowel Diversion Stoma - Bowel Stoma Right Upper Abdomen Stoma Appearance: Protruding (long protrusion ), Round (red, moist, functioning) Collection Device: Two-piece, Moldable Wafer Drainage Description: Liquid, Brown Wafer Size: 1 3/4 Moldable 45mm Stoma Care: Pouch and Wafer Changed (sutures noted to mucocutaneous junction ), Skin Care Radha-Stomal Skin Appearance: Intact Radha-Stomal Surrounding Tissue Sensation Description: No Symptoms (unremarkable ) - Additional Information Additional Information: Patient 3 daughters at bedside and instructed on how to empty, and remove wafer/ pouch. How to cleanse peristomal skin. How to skin prep peristomal skin and allow to dry. How to measure stoma. How to apply new moldable wafer and pouch. When to seek medical attention. Patient gave verbal consent for starter kit to be sent out, that was ordered today. All questions were answered during demonstrations mentioned above.
[2018-02-19 05:37] LABS: Baso % (Auto) 0.2 % (0.0-2.0); Eos # (Auto) 0.1 th/mm3 (0.0-0.4); Eos % (Auto) 0.5 % (0.0-4.0); Hemoglobin 9.8 gm/dL (11.6-15.3); Lymph # (Auto) 0.8 th/mm3 (1.0-4.8); Lymph % (Auto) 7.3 % (9.0-44.0); Mean Corpuscular HGB Conc 31.5 % (32.0-36.0); Mean Corpuscular Hemoglobin 25.4 pg (27.0-34.0); Mean Corpuscular Volume 80.6 fL (80.0-100.0); Mean Platelet Volume 6.6 fL (7.0-11.0); Mono # (Auto) 0.7 th/mm3 (0.0-0.9); Mono % (Auto) 6.3 % (0.0-8.0); Neut % (Auto) 85.7 % (16.0-70.0); Platelet Count 424 th/mm3 (150-450); Red Blood Count 3.84 mil/mm3 (4.00-5.30); Red Cell Distribution Width 22.3 % (11.6-17.2); White Blood Count 10.5 th/mm3 (4.0-11.0)
[2018-02-19 06:25] LABS: Alanine Aminotransferase 14 U/L (10-53); Anion Gap 9 meq/L (5-15); Aspartate Aminotransferase 10 U/L (15-37); Blood Urea Nitrogen 12 mg/dL (7-18); Calcium 8.6 mg/dL (8.5-10.1); Carbon Dioxide 26.8 meq/L (21.0-32.0); Chloride 107 meq/L (98-107); Glomerular Filtration Rate Greater Than 89 mL/min (>89); Glucose,Random 90 mg/dL (74-106); Magnesium 2.1 mg/dL (1.5-2.5); Phosphorus 2.3 mg/dL (2.5-4.9); Potassium 3.4 meq/L (3.5-5.1); Sodium 143 meq/L (136-145)
[2018-02-19 06:27] LABS: Alkaline Phosphatase 60 U/L (45-117); Total Protein 5.1 g/dL (6.4-8.2)
[2018-02-19] MEDS ORDERED: Potassium Phosphate 500 MG Soluble Tablet PO ONE (09:00)
[2018-02-19] MEDS: Pantoprazole Inj 40 MG Vial IV.PUSH SCH (09:12)
[2018-02-19] MEDS: predniSONE 20 MG Tablet PO SCH (09:14)
[2018-02-19] MEDS: Spironolactone 25 MG Tablet PO SCH (09:23)
--- NOTE | 2018-02-19 09:27 | P.PNFP ---
Subjective Interval history: Patient seen and examined this morning. AFVSS. Daughter is present in the room. Patient has no complaints. Tolerating p.o. Denies nausea, vomiting, chest pain, or shortness of breath. Feels ready to go home. Has help with her daughter and home health care. Results - Labs Result diagrams: 02/19/18 05:00 02/19/18 05:00 Abnormal lab results 02/19/18 02/19/18 Range/Units 05:00 05:00 RBC 3.84 L (4.00-5.30) mil/mm3 Hgb 9.8 L (11.6-15.3) gm/dL Hct 31.0 L (35.0-46.0) % MCH 25.4 L (27.0-34.0) pg MCHC 31.5 L (32.0-36.0) % RDW 22.3 H (11.6-17.2) % MPV 6.6 L (7.0-11.0) fL Neut % (Auto) 85.7 H (16.0-70.0) % Lymph % (Auto) 7.3 L (9.0-44.0) % Neut # (Auto) 9.0 H (1.8-7.7) th/mm3 Lymph # (Auto) 0.8 L (1.0-4.8) th/mm3 Potassium 3.4 L (3.5-5.1) meq/L Phosphorus 2.3 L (2.5-4.9) mg/dL AST 10 L (15-37) U/L Total Protein 5.1 L (6.4-8.2) g/dL Albumin 2.0 L (3.4-5.0) g/dL Short CBC 02/19/18 Range/Units 05:00 WBC 10.5 (4.0-11.0) th/mm3 Hgb 9.8 L (11.6-15.3) gm/dL Hct 31.0 L (35.0-46.0) % Plt Count 424 (150-450) th/mm3 BMP 02/19/18 05:00 Sodium 143 Potassium 3.4 L Chloride 107 Carbon Dioxide 26.8 BUN 12 Creatinine 0.67 Calcium 8.6 Liver Function 02/19/18 Range/Units 05:00 Total Bilirubin 0.2 (0.2-1.0) mg/dL AST 10 L (15-37) U/L ALT 14 (10-53) U/L Alkaline Phosphatase 60 (45-117) U/L Albumin 2.0 L (3.4-5.0) g/dL Physical Exam Vital signs: Vital Signs 02/18/18 10:00 02/18/18 11:00 02/18/18 12:00 Temperature 98.5 F Pulse Rate 66 54 L 62 Respiratory Rate 16 Blood Pressure 135/75 Pulse Oximetry 02/18/18 13:00 02/18/18 14:00 02/18/18 15:00 Temperature Pulse Rate 60 89 71 Respiratory Rate Blood Pressure Pulse Oximetry 02/18/18 16:00 02/18/18 17:00 02/18/18 18:00 Temperature 98.0 F Pulse Rate 62 60 61 Respiratory Rate 18 Blood Pressure 138/72 Pulse Oximetry 02/18/18 20:00 02/19/18 00:00 02/19/18 04:00 Temperature 97.8 F 97.4 F L 98 F Pulse Rate 63 62 64 Respiratory Rate 18 18 18 Blood Pressure 154/84 H 144/74 H 158/68 H Pulse Oximetry 100 99 99 Intake & Output 02/18/18 02/19/18 02/19/18 18:59 06:59 18:59 Intake Total 820 / 820 Output Total 745 / 745 1178 / 1178 Balance 75 / 75 -1178 / -1178 Weight 52.9 kg Intake: IV 100 / 100 Magnesium Sulfate Inj 2 GM In 0 / 0 NS Inj 96 ML @ 50 mls/hr IV.SIG ONCE ONE Rx#:[id number] Flagyl 500 MG Inj 100 ML @ 100 100 / 100 mls/hr IV.SIG Q8H [facility] Rx#: [id number] Oral 720 / 720 Output: Urine 200 / 200 950 / 950 Stool Amount (Stoma) 450 / 450 200 / 200 Right Upper Abdomen 450 / 450 200 / 200 Wound Drainage 95 / 95 # 1 Right Lower Abdomen 45 / 45 # 2 Left Lower Abdomen 50 / 50 Other: # Voids 4 # Incontinent Voids 3 Date of Last Bowel Movement 02/17/18 02/17/18 # Bowel Movements 3 # Incontinent Bowel Movements 1 Narrative: GENERAL: WN, WD -[place] female sitting up in chair in NAD. SKIN: Warm and dry. HEENT: AT/NC. Pupils equal and round. MMM. HEART: RRR no m/r/g. LUNGS: CTAB without wheezes or crackles. ABDOMEN: Surgical sites clean. Ostomy in place. EXTREMITIES: No LE edema. NEURO: Awake and alert. Nonfocal. PSYCH: Appropriate mood and affect. 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 [facility] consulted for evaluation of elevated blood pressures following surgery on 02/14. 1. Hypertensive urgency - Improved after decreasing IV fluids - Continue spironolactone - Follow-up with PCP as outpatient to continue monitoring 2. L psoas abscess with colocutaneous fistula - Admitted by colorectal surgery - Initially had drain in place but ultimately required surgical debridement with full left colectomy and small bowel resection with diverting loop ileostomy on 02/14 - Tolerating regular diet - Pain control and discharge plans per colorectal surgery 3. Hypokalemia - Improving - Mg WNL - Potassium 3.4 this AM - Continue KCl 4. DVT - U/S this admission showed residual clot in L superficial femoral vein - Continue Pradaxa - Followed by heme as outpatient Disposition: D/C home with [facility]HC today per colorectal surgery
--- NOTE | 2018-03-10 10:15 | MD ---
cc: Aj Harrell MD, John T MD Tsai,Macario Mcgraw,Genet Esparza MD DATE OF DISCHARGE: 02/19/2018 ADMITTING DIAGNOSES: Pelvic and abdominal wall abscess. DISCHARGE DIAGNOSES: Pelvic and abdominal wall abscess. DATE OF SURGERY: 02/14/2018 OPERATIVE PROCEDURE: 1. Debridement of left lower quadrant abdominal wall abscess. 2. Full left colectomy with low anterior resection. 3. Small bowel resection. 4. Diverting loop ileostomy. 5. Intraoperative colonoscopy. HISTORY: This patient was originally admitted to the hospital on 01/14/2018 with what appeared to be an intra-abdominal and subcutaneous abscess. She had a CT-guided drainage of the abscess which totally resolved and the drainage tube was removed on 01/20/2018. She was sent home on antibiotics and for this reason was followed up again in the office. She was seen in the office on 02/01/2018 and had white purulent drainage coming from the skin and subcutaneous tissue in the left lower quadrant from the drain site. It appeared to be a subcutaneous abscess in nature only. However, I did send her for an outpatient CT scan at [facility] and the CT scan was read by Dr. Paniagua showing a persistent abscess within the left lower abdominal wall anteriorly which was 5 x 3.7 x 6.5 cm, as well as within the left iliac fossa, which was 6.8 x 3.7 cm. This abscess was posterior to the iliopsoas muscle and anterior to the left iliac wing. The fluid retracted superiorly along the psoas muscle on the left side. This was basically similar to the previous presentation. For this reason, she was instructed to be admitted to the hospital. 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 Since that time, she has been placed on medications by Dr. Hooker consisting of prednisone and then sulfasalazine for her colitis, as well as Mycophenolate 1000 mg b.i.d. She has been on these medications for about a year and her colitis has been quiet and her pyoderma gangrenosum of her legs completely resolved with scarring. A year ago, she had a flexible sigmoidoscopy done at the time of her pyoderma, which was normal showing no evidence of ulcerative colitis and also about 2 weeks prior to this admission, she had a flexible sigmoidoscopy which showed a normal rectosigmoid and no evidence of ulcerative colitis. We were not sure if this was a perforating diverticulitis or due to her ulcerative colitis. LABORATORY DATA: The pathology report on the removed specimen revealed that the abscess cavity along the left lower quadrant abdominal wall and subcutaneous fat was simply an acute abscess without evidence of any carcinoma or colitis. The left colon segmental resection showed multiple foci of diverticulitis and 1 small pericolonic abscess and extensive diverticulosis. The jejunum segmental resection, which was done because what appeared to be a fistula, showed focal marked serosal adhesion with an adherent portion of colonic wall either the colon or the jejunum had any evidence of inflammatory bowel disease. HOSPITAL COURSE: The patient was admitted to the hospital on 02/01/2018. She underwent several changes of her drains via CT guidance, both subcutaneously and deeply in her abdomen without full resolution of these abscesses. For this reason, after discussion with the family and the patient extensively, laparotomy was recommended. She underwent surgery for this on 02/14/2018. At that time, a debridement of the left lower quadrant abdominal wall was done, as well as full left colectomy a small bowel resection for apparent fistula, diverting loop ileostomy, mobilization of the splenic flexure, omental flap and intraoperative colonoscopy. Postoperatively, the patient did well. She was followed by the medical service for various issues including chronic DVT for which she was maintained on IV heparin preoperatively and postoperatively. She continued to do well after surgery and was progressing well and learning about the ileostomy. She was seen postoperatively for elevated blood pressure and was started on blood pressure medications by the medical service. They continued to follow the patient until her discharge on a regular diet on 02/19/2018. She had a very attentive family and was discharged to her home with home health care nursing for dressing changes of her left lower quadrant debridement site, as well as ileostomy teaching and supplies. She was instructed to do no driving for at least 2 weeks. She was instructed do no heavy lifting for 6 weeks. She was instructed to followup with me in the office in about a week for staple removal from her wound. She was instructed to call me with any problems. MD CORI Ziegler/CHACE Castro: 03/10/2018, 09:49 AM , 10:00 AM
== END 2018-02-19 13:04 | disposition home health service (06) ==
LOC: N07 16:37 → HCIS 02-14 20:02
PROVIDERS: ADMIT Colon & Rectal Surgery; ATTEND Colon & Rectal Surgery

== ENCOUNTER 2018-03-07 16:39 | Inpatient (IN) ==
[2018-03-07] MEDS ORDERED: Sodium Chlor 0.9% Inj 500 ML IV.SIG ONE (21:54)
--- NOTE | 2018-03-07 22:02 | ED ---
HPI General Chief complaint: Weakness Stated complaint: Sent by /General Weakness Time Seen by Provider: 03/07/18 21:38 Source: patient and family Mode of arrival: ambulatory Limitations: no limitations History of Present Illness HPI narrative: The patient is an 82 year old female who presents to the [facility] emergency department with a history of recently being admitted to the hospital related to psoas muscle abscesses status post treatment by Dr. Harrell. The patient was recently discharged from the hospital and followed up with him on this last Wednesday. The patient's family reports that she has not been eating or drinking well. She has had decreased urine output and a 10 pound weight loss since her discharge. They report that she has not been urinating regularly in spite of being on 2 separate diuretics. They deny her having history of congestive heart failure, however she does have persistent lower extremity edema which they report is the reason for her diuretic use. He reports that she has had intermittent nausea and vomiting since. Her last episode of emesis was reportedly 3-4 days ago. Additionally reports that she is chronically anticoagulated on Pradaxa related to a left lower extremity DVT. They report that she has had decreased output from her ileostomy. Her stool has not had any blood in it. They report that it is thicker than usual and brown in color. The patient denies having any abdominal pain. She denies having any chest pain, chest pressure, or shortness of breath. She denies having any known recent fevers. She denies being on any antibiotic currently. She denies having any dysuria or urinary she reports that her urine has been darker than usual. She is also been complaining of some back pain according to her family. She reports that the back pain is most prominent in the right side of her low back. On review of systems otherwise, the patient denies having any chest congestion, neck pain, diarrhea, or neurologic symptoms. Related Data Home Medications Medication Instructions Recorded Confirmed dabigatran etexilate 150 mg PO BID 02/05/18 03/07/18 ferrous sulfate 325 mg PO DAILY 02/05/18 03/07/18 furosemide 20 mg PO WEEKLY 02/05/18 03/07/18 pantoprazole 40 mg PO DAILY 02/05/18 03/07/18 spironolactone 25 mg PO WEEKLY 02/05/18 03/07/18 sulfasalazine 1 g PO BID 02/05/18 03/07/18 prednisone 20 mg PO DAILY 03/07/18 03/07/18 Allergies Allergy/AdvReac Type Severity Reaction Status Date / Time No Known Allergies Allergy Unknown Uncoded 02/01/18 19:22 Review of Systems ROS Unobtainable All other systems reviewed negative except as stated in [facility] Medical History Medical History Diverticulitis (Acute) Left leg DVT (Acute ~2015) Osteoarthritis (Acute) Proctocolitis, ulcerative (Acute) Pyoderma gangrenosum (Acute) Right leg DVT (Acute ~2006) Venous (peripheral) insufficiency (Acute) Surgical History Surgical History History of surgical removal of ganglion cyst (Acute) History of total right hip arthroplasty (Acute ~2006) S/P debridement (Acute ~02/14/18) S/P left colectomy (Acute ~02/14/18) S/P small bowel resection (Acute ~02/14/18) Status post cystoscopy (Acute ~02/14/18) Status post ileostomy (Acute ~02/14/18) Family History Family History Mother Natural Father CVA (cerebral vascular accident) Sister Breast CA Brother Liver disease Social History Social History Substance History: No History of Abuse Second Hand Smoke Exposure: Yes (10 years ago) Smoking Status: Never smoker How Often Do You Have a Drink Containing Alcohol: 2 to 3 times a week Recent Travel in [facility] within the Last 8 Weeks: No Recent Out of Country Travel within the Last 8 Weeks: No Exam Const General: cooperative, no acute distress and well developed Nutritional Appearance: well nourished Orientation: alert, awake and oriented x3 HENMT Head: normocephalic and atraumatic Nose: no nasal discharge and no epistaxis Mouth: moist mucous membranes Throat: posterior oropharynx normal Eyes Sclera: normal sclerae Pupils: PERRL Neck Neck: no meningeal signs, trachea midline and no JVD Resp Effort & Inspection: no use of accessory muscles Auscultation: clear to auscultation bilaterally Cardio Rate: regular rate Rhythm: regular rhythm Heart Sounds: no murmurs GI Inspection: non-distended Palpation: soft, no hepatosplenomegaly and tender other (Patient reports tenderness on palpation just medial to her ileostomy site along the suprapubic area. The patient has a bandage in place that is clean, dry, and intact along the left lower quadrant of the abdomen. The patient's ileostomy bag has brown stool noted. No blood in the stool.) Auscultation: normal bowel sounds Back/Spine/Pelvis Back: CVA tenderness (Right-sided CVA tenderness is noted on palpation. No tenderness on palpation of the left) Cervical Spine: No cervical spinal tenderness Thoracic/Lumbar Spine: No thoracic spinal tenderness and No lumbar spinal tenderness Skin General: dry skin (warm) Neuro General: alert, awake and oriented x3 Cranial Nerves: CN's II-XI intact bilaterally Speech: speech normal Motor: strength 5/5 throughout and no movement abnormalities noted Sensory Exam: no sensory deficits noted Extrem General: normal to inspection, no clubbing, no cyanosis and edema (Trace pedal edema of the left lower extremity. Splotchy areas of hypopigmentation of the left lower extremity. 2+ pulses in all 4 extremities. No calf tenderness on palpation.) Psych Mood: congruent mood Affect: normal affect Judgment: judgment good Course Consultations Consultation #1: The patient's case including history, pertinent physical examination findings, and laboratory studies were discussed with Dr. Harrell. It was agreed that the patient would be admitted to Dr. Harrell's service. Time: 22:28 Initial Documented Vital Signs Temperature 98.6 F 03/07/18 17:13 Pulse Rate 84 03/07/18 17:13 Respiratory Rate 20 03/07/18 17:13 Blood Pressure 146/83 H 03/07/18 17:13 Pulse Oximetry 100 03/07/18 17:13 Last Documented Vital Signs Temperature 97.7 F 03/08/18 12:00 Pulse Rate 62 03/08/18 12:00 Respiratory Rate 20 03/08/18 12:00 Blood Pressure 142/68 H 03/08/18 12:00 Pulse Oximetry 100 03/08/18 12:00 Medical Decision Making MDM Narrative Medical decision making narrative: During the course of the patient's emergency department visit, the patient's history, examination, and differential diagnosis were reviewed with the patient. The patient was placed on a laboratory monitor with oximetry and frequent blood pressure monitoring. The patient had IV access obtained and blood work sent for analysis. A diagnostic workup was started regarding this patient's generalized weakness, poor p.o. intake, intermittent nausea vomiting, weight loss. A call was placed out to the patient 's colorectal surgeon who sent her to the emergency department for evaluation and treatment. The patient was initially provided normal saline at 500 mL bolus 1. The patient's laboratory studies are remarkable for a white count of 5.6, platelets 301 with a neutrophil percent of 76.1, hemoglobin is 11.5, PT 10.7, PTT 29, chemistry is remarkable for a troponin I of 0.07, sodium 134, lipase 41 , GFR 62, creatinine 1.03, CO2 20.5, AST 38, BMP within normal limits, CPK within normal limits. A chest x-ray shows no acute abnormality. The patient's case was discussed with the patient's colorectal surgeon who agreed to admit the patient for continued evaluation and treatment. Differential Diagnosis Differential Diagnosis: Dehydration, versus electrolyte derangements, versus recurrent abdominal abscess, versus pyelonephritis Medical Records Medical records reviewed: Yes I reviewed the patient's medical records. Lab Data Lab results reviewed: Yes I reviewed the patient's lab results. Result diagrams: 03/07/18 22:20 03/07/18 22:20 Lab Results 03/07/18 03/07/18 03/07/18 Range/Units 22:20 22:20 22:20 WBC 5.6 (4.0-11.0) th/mm3 RBC 4.47 (4.00-5.30) mil/mm3 Hgb 11.5 L (11.6-15.3) gm/dL Hct 36.6 (35.0-46.0) % MCV 81.9 (80.0-100.0) fL MCH 25.8 L (27.0-34.0) pg MCHC 31.5 L (32.0-36.0) % RDW 23.4 H (11.6-17.2) % Plt Count 301 (150-450) th/mm3 MPV 6.7 L (7.0-11.0) fL Neut % (Auto) 76.1 H (16.0-70.0) % Lymph % (Auto) 13.5 (9.0-44.0) % [place] % (Auto) 7.9 (0.0-8.0) % Eos % (Auto) 1.7 (0.0-4.0) % Baso % (Auto) 0.8 (0.0-2.0) % Neut # (Auto) 4.3 (1.8-7.7) th/mm3 Lymph # (Auto) 0.8 L (1.0-4.8) th/mm3 [place] # (Auto) 0.4 (0.0-0.9) th/mm3 Eos # (Auto) 0.1 (0.0-0.4) th/mm3 Baso # (Auto) 0.0 (0.0-0.2) th/mm3 WBC Differential . Differential Comment Auto diff final PT 10.7 (9.8-11.6) sec INR 1.1 Ratio Sodium 134 L (136-145) meq/L Potassium 4.6 (3.5-5.1) meq/L Chloride 105 (98-107) meq/L Carbon Dioxide 20.5 L (21.0-32.0) meq/L Anion Gap 9 (5-15) meq/L BUN 17 (7-18) mg/dL Creatinine 1.03 H (0.50-1.00) mg/dL Estimated GFR 62 L (>89) mL/min Random Glucose 80 (74-106) mg/dL Lactic Acid (0.4-2.0) mmol/L Calcium 9.8 (8.5-10.1) mg/dL Magnesium 2.1 (1.5-2.5) mg/dL Total Bilirubin 0.7 (0.2-1.0) mg/dL AST 38 H (15-37) U/L ALT 21 (10-53) U/L Alkaline Phosphatase 86 (45-117) U/L Total Creatine Kinase 64 (26-192) U/L Troponin I 0.07 H (0.02-0.05) ng/mL B-Natriuretic Peptide (0-100) pg/mL Total Protein 7.9 (6.4-8.2) g/dL Albumin 3.8 (3.4-5.0) g/dL Lipase 481 H (73-393) U/L Urine Color (Yellw/Straw) Urine Clarity (Clear) Urine pH (5.0-8.5) Ur Specific [place] (1.002-1.035) Urine Protein (Neg-Trace) mg/dL Urine Glucose (UA) (Negative) mg/dL Urine Ketones (Negative) mg/dL Urine Occult Blood (Negative) Urine Nitrate (Negative) Urine Bilirubin (Negative) Urine Urobilinogen (Less than 2) mg/dL Ur Leukocyte Esterase (Negative) Urine RBC (0-3) /hpf Urine WBC (0-5) /hpf Urine WBC Clumps (None) Ur Squamous Epith Cells (0-5) /hpf Ur Transition Epith Cell (None) /hpf Ur Renal Epithelial Cell (None) /hpf Urine Bacteria (None) /hpf Hyaline Casts (0-3) /lpf Granular Casts (None) /lpf Urine Mucus (Occasional) /lpf Micro UA Comment Urine Culture Comments 03/07/18 03/07/18 03/07/18 Range/Units 22:20 22:20 23:30 WBC (4.0-11.0) th/mm3 RBC (4.00-5.30) mil/mm3 Hgb (11.6-15.3) gm/dL Hct (35.0-46.0) % MCV (80.0-100.0) fL MCH (27.0-34.0) pg MCHC (32.0-36.0) % RDW (11.6-17.2) % Plt Count (150-450) th/mm3 MPV (7.0-11.0) fL Neut % (Auto) (16.0-70.0) % Lymph % (Auto) (9.0-44.0) % [place] % (Auto) (0.0-8.0) % Eos % (Auto) (0.0-4.0) % Baso % (Auto) (0.0-2.0) % Neut # (Auto) (1.8-7.7) th/mm3 Lymph # (Auto) (1.0-4.8) th/mm3 [place] # (Auto) (0.0-0.9) th/mm3 Eos # (Auto) (0.0-0.4) th/mm3 Baso # (Auto) (0.0-0.2) th/mm3 WBC Differential Differential Comment PT (9.8-11.6) sec INR Ratio Sodium (136-145) meq/L Potassium (3.5-5.1) meq/L Chloride (98-107) meq/L Carbon Dioxide (21.0-32.0) meq/L Anion Gap (5-15) meq/L BUN (7-18) mg/dL Creatinine (0.50-1.00) mg/dL Estimated GFR (>89) mL/min Random Glucose (74-106) mg/dL Lactic Acid 1.2 (0.4-2.0) mmol/L Calcium (8.5-10.1) mg/dL Magnesium (1.5-2.5) mg/dL Total Bilirubin (0.2-1.0) mg/dL AST (15-37) U/L ALT (10-53) U/L Alkaline Phosphatase (45-117) U/L Total Creatine Kinase (26-192) U/L Troponin I (0.02-0.05) ng/mL B-Natriuretic Peptide 12 (0-100) pg/mL Total Protein (6.4-8.2) g/dL Albumin (3.4-5.0) g/dL Lipase (73-393) U/L Urine Color Yellow (Yellw/Straw) Urine Clarity Cloudy H (Clear) Urine pH 5.0 (5.0-8.5) Ur Specific [place] 1.021 (1.002-1.035) Urine Protein 30 H (Neg-Trace) mg/dL Urine Glucose (UA) Negative (Negative) mg/dL Urine Ketones Trace H (Negative) mg/dL Urine Occult Blood Moderate H (Negative) Urine Nitrate Negative (Negative) Urine Bilirubin Negative (Negative) Urine Urobilinogen Less than 2 (Less than 2) mg/dL Ur Leukocyte Esterase Small H (Negative) Urine RBC 7 H (0-3) /hpf Urine WBC 48 H (0-5) /hpf Urine WBC Clumps Few H (None) Ur Squamous Epith Cells 26 (0-5) /hpf Ur Transition Epith Cell <1 (None) /hpf Ur Renal Epithelial Cell 4 (None) /hpf Urine Bacteria Few H (None) /hpf Hyaline Casts 15 (0-3) /lpf Granular Casts 41 (None) /lpf Urine Mucus Few H (Occasional) /lpf Micro UA Comment Culture indicated Urine Culture Comments Culture indicated Imaging Data Radiologist's impression: Chest X-Ray 03/07/18 21:51 CONCLUSION: No acute findings. ECG Data Attestation: I personally reviewed and interpreted this ECG as follows: Interpretation: The patient had an EKG done on arrival that shows a sinus rhythm heart rate of 69, QRS duration is 73 ms, QTC is 424 ms. The patient has no acute ST segment elevation noted, T waves are inverted in V1, lead III. Discharge Plan Discharge Disposition Patient Disposition: 30 Still Patient Discharge Details Diagnosis: Dehydration Physicians Team ED Provider: Radha Zelaya Primary Care Provider: Genet Mcgraw Attending Provider: Aj Harrell Discharge Interventions Interventions: ED Discharge Assessment Last Done: 03/07/18 23:39 Status ED Status: Left Department Discharge Information Discharge Date/Time: 03/08/18 00:09
--- NOTE | 2018-03-07 22:16 | XR ---
EXAM DATE: 03/07/2018 10:08 PM EDT AGE/SEX: 82 years / Female INDICATIONS: Shortness of breath. CLINICAL DATA: This is the patient's initial encounter. Patient reports that signs and symptoms have been present for 1 day and indicates a pain score of 0/10. MEDICAL/SURGICAL HISTORY: None. None. COMPARISON: [facility], CHEST 1V SINGLE AP, 02/14/2018. . FINDINGS: A single AP view of the chest demonstrates the lungs to be symmetrically aerated without evidence of mass, infiltrate or effusion. The cardiomediastinal contours are unremarkable except tortuous aorta. Osseous structures are intact. CONCLUSION: No acute findings. Electronically signed by: Shaq Monet MD 03/07/2018 10:14 PM EDT
[2018-03-07 22:53] LABS: Baso % (Auto) 0.8 % (0.0-2.0); Eos # (Auto) 0.1 th/mm3 (0.0-0.4); Eos % (Auto) 1.7 % (0.0-4.0); Hematocrit 36.6 % (35.0-46.0); Hemoglobin 11.5 gm/dL (11.6-15.3); Lymph # (Auto) 0.8 th/mm3 (1.0-4.8); Lymph % (Auto) 13.5 % (9.0-44.0); Mean Corpuscular HGB Conc 31.5 % (32.0-36.0); Mean Corpuscular Hemoglobin 25.8 pg (27.0-34.0); Mean Corpuscular Volume 81.9 fL (80.0-100.0); Mean Platelet Volume 6.7 fL (7.0-11.0); Mono # (Auto) 0.4 th/mm3 (0.0-0.9); Mono % (Auto) 7.9 % (0.0-8.0); Neut # (Auto) 4.3 th/mm3 (1.8-7.7); Neut % (Auto) 76.1 % (16.0-70.0); Platelet Count 301 th/mm3 (150-450); Red Blood Count 4.47 mil/mm3 (4.00-5.30); Red Cell Distribution Width 23.4 % (11.6-17.2); White Blood Count 5.6 th/mm3 (4.0-11.0)
[2018-03-07 23:00] LABS: INR 1.1 Ratio; Prothrombin Time 10.7 sec (9.8-11.6)
[2018-03-07 23:04] LABS: Alanine Aminotransferase 21 U/L (10-53)
[2018-03-07 23:09] LABS: Albumin 3.8 g/dL (3.4-5.0); Alkaline Phosphatase 86 U/L (45-117); Anion Gap 9 meq/L (5-15); Aspartate Aminotransferase 38 U/L (15-37); Blood Urea Nitrogen 17 mg/dL (7-18); Calcium 9.8 mg/dL (8.5-10.1); Carbon Dioxide 20.5 meq/L (21.0-32.0); Chloride 105 meq/L (98-107); Glomerular Filtration Rate 62 mL/min (>89); Glucose,Random 80 mg/dL (74-106); Lipase 481 U/L (73-393); Magnesium 2.1 mg/dL (1.5-2.5); Sodium 134 meq/L (136-145); Total Protein 7.9 g/dL (6.4-8.2); Troponin I 0.07 ng/mL (0.02-0.05)
[2018-03-07 23:18] LABS: Creatine Kinase 64 U/L (26-192); Potassium 4.6 meq/L (3.5-5.1)
[2018-03-08 00:07] LABS: Bacteria,Urine Few /hpf; Bilirubin,Urine Negative (Negative); Clarity,Urine Cloudy (Clear); Color,Urine Yellow (Yellw/Straw); Glucose,Urine (UA) Negative (Negative); Hyaline Casts,Urine 15 /lpf (0-3); Leukocyte Esterase,Urine Small (Negative); Mucus,Urine Few /lpf (Occasional); Nitrite,Urine Negative (Negative); Renal Epithelial Cells,Urine 4 /hpf; Specific Gravity,Urine 1.021 (1.002-1.035); Squamous Epithelial Cell,Urine 26 /hpf (0-5); Transitional Epi Cells,Urine <1 /hpf
[2018-03-08] MEDS: Sod Chloride 0.9% Inj 1,000 ML IV.CONT SCH ×2 (00:12→06:28)
--- NOTE | 2018-03-08 08:42 | P.PNWCN ---
Wound Care Nurse Consult Description: Consult for Ostomy Management of RUQ ileostomy difficulty with pouching near umbilicus per Dr Harrell Communicated with: Patient RN Recommendation: Change ostomy appliance to ileostomy on right side abdomen Q3-5 days and PRN for leaks. Please do not place tape around wafer appliance to reinforce; remove and replace. Additional information: Patient seen earlier this morning ~0700 for ostomy assessment and teaching with appliance change. Bowel Diversion Stoma - Bowel Stoma Right Lower Abdomen Stoma Edema: No Stoma Diameter: 1 (inch round) Stoma Appearance: Protruding (red, moist, functioning) Collection Device: Two-piece, Moldable Wafer Drainage Description: Soft Wafer Size: 1 3/4 Moldable 45mm Stoma Care: Pouch and Wafer Changed, Skin Care (cleansed with water, pat dry, Cavilon, let dry, stoma paste used in crease near umbilicus.) Radha-Stomal Skin Appearance: Intact
[2018-03-08] MEDS ORDERED: predniSONE 20 MG Tablet PO SCH (09:00)
[2018-03-08] MEDS: Ciprofloxacin 500 MG Tablet PO SCH ×2 (10:02→20:40)
--- NOTE | 2018-03-08 17:17 | MH ---
cc: Aj Harrell MD, John T MD DATE OF ADMISSION: 03/07/2018 CHIEF COMPLAINT: Weakness, anorexia, weight loss. 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 The patient underwent a full left colectomy with a low anterior resection and a small bowel resection along with a diverting loop ileostomy. Since that time, she has done well. She went home from the hospital about 16 days ago, but over the last several days has become increasingly weak and anorexic and the family feels as if she is not thriving. They felt that she was not having high output from her ileostomy and, therefore, she was not very dehydrated, but I was concerned that she may be dehydrated. She came to the hospital and approximately 8 hours later was seen in the emergency department eventually and, on exam, was found to be without any abdominal pain with a functioning ileostomy in the right lower quadrant, mild nausea and anorexia along with weakness. PAST MEDICAL HISTORY, FAMILY HISTORY, SOCIAL HISTORY: As above. REVIEW OF SYSTEMS: Negative other than anorexia, weakness, mild nausea. PHYSICAL EXAMINATION: GENERAL: Well-developed, well-nourished, 82-year-old female in mild distress. SKIN: Warm and dry. HEENT: Extraocular muscles intact. NECK: Supple. CHEST: Clear. HEART: S1, S2 is heard. No murmurs or gallops. ABDOMEN: Soft, essentially nontender. No masses. Her midline incision is healed well. She has a left lower quadrant wound, which is clean and debrided. There is no evidence of infection there. She has a right middle quadrant functioning ileostomy. RECTAL: Exam was not done. EXTREMITIES: Range of motion within normal limits. NEUROLOGIC: Grossly normal. LABORATORY DATA: The white blood cell count was 5600, hemoglobin 11.5, hematocrit 36.6. When she was discharged on 02/20, hemoglobin was 9.8 with an hematocrit of 31. Her electrolytes showed that her sodium was 134, potassium 4.6, chloride 105, CO2 slightly low at 20.5. Prior to discharge on 02/19, her sodium was 143, potassium 3.4, chloride 107, CO2 was 26.8. Her BUN was 17. Her creatinine was slightly elevated at 1.03. Lipase was mildly elevated at 481. IMPRESSION: 1. Mild dehydration. 2. Weakness. 3. Anorexia. PLAN: I am going to admit her to the hospital and give her intravenous fluids to hydrate her and see if we can improve her appetite and intake. I am also going to start physical therapy. MD CORI Ziegler/ , 04:57 PM , 05:06 PM
--- NOTE | 2018-03-08 17:46 | ECG ---
Date Performed: 03/07/2018 Time Performed: 22:16:57 PTAGE: 82 years EKG: Sinus rhythm NORMAL ECG Since the PREVIOUS TRACING , no significant change noted PREVIOUS TRACIN01/19/2018 01.44 DOCTOR: Cloton Aranda Interpretating Date/Time 03/08/2018 17:45:57
[2018-03-09 08:24] LABS: Baso % (Auto) 0.5 % (0.0-2.0); Eos # (Auto) 0.3 th/mm3 (0.0-0.4); Eos % (Auto) 5.3 % (0.0-4.0); Hematocrit 31.7 % (35.0-46.0); Hemoglobin 9.8 gm/dL (11.6-15.3); Lymph # (Auto) 1.1 th/mm3 (1.0-4.8); Lymph % (Auto) 20.8 % (9.0-44.0); Mean Corpuscular Hemoglobin 25.6 pg (27.0-34.0); Mean Corpuscular Volume 83.1 fL (80.0-100.0); Mean Platelet Volume 6.8 fL (7.0-11.0); Mono # (Auto) 0.5 th/mm3 (0.0-0.9); Mono % (Auto) 9.7 % (0.0-8.0); Neut # (Auto) 3.4 th/mm3 (1.8-7.7); Neut % (Auto) 63.7 % (16.0-70.0); Platelet Count 269 th/mm3 (150-450); Red Blood Count 3.82 mil/mm3 (4.00-5.30); Red Cell Distribution Width 23.5 % (11.6-17.2); White Blood Count 5.3 th/mm3 (4.0-11.0)
[2018-03-09 08:28] LABS: Mean Corpuscular HGB Conc 30.8 % (32.0-36.0)
--- NOTE | 2018-03-09 08:46 | P.PNCS ---
Subjective Interval history: More alert and stronger. Mentation clear. Much better oral intake. Objective Result Diagrams: 03/09/18 07:20 03/07/18 22:20 Objective Remarks: VS-S Abd: flat,soft,non tender. Wound clean. TID dressings Assessment and Plan - Plan Continue PT and diet. Decrease IVs Possible D/C tomorrow on Cipro for UTI.
[2018-03-09 08:53] LABS: Calcium 8.7 mg/dL (8.5-10.1); Carbon Dioxide 21.5 meq/L (21.0-32.0); Potassium 3.8 meq/L (3.5-5.1)
[2018-03-09] MEDS: Ciprofloxacin 500 MG Tablet PO SCH ×2 (09:12→20:05)
[2018-03-09] MEDS: predniSONE 10 MG Tablet PO SCH (09:12)
[2018-03-09] MEDS: KCL 20 mEq/D5W/LR Inj 1,000 ML IV.CONT SCH (12:28)
--- NOTE | 2018-03-09 14:14 | P.PNWCN ---
Wound Care Nurse Consult Description: Consult for Ostomy Management of RUQ ileostomy difficulty with pouching near umbilicus per Dr Harrell Communicated with: Patient, RN Osiris [address] [place] [id number] and Patient's daughter Recommendation: Change ostomy appliance to ileostomy on right side abdomen Q3-5 days and PRN for leaks. Please do not place tape around wafer appliance to reinforce; remove and replace. Bowel Diversion Stoma - Bowel Stoma Right Lower Abdomen Stoma Edema: No Stoma Diameter: 1 (inch round) Stoma Appearance: Beefy Red, Protruding (red, moist, functioning) Collection Device: Two-piece, Moldable Wafer Drainage Description: Soft Wafer Size: 1 3/4 Moldable 45mm Stoma Care: Pouch and Wafer Changed, Skin Care (cleansed with water, pat dry, Cavilon, let dry, applied Alicia seal to abdominal crease) Radha-Stomal Skin Appearance: Intact Radha-Stomal Surrounding Tissue Sensation Description: No Symptoms - Additional Information Additional Information: Patient seen on [address] [place] [id number] for ostomy management with difficult pouching near umbilicus. Patient's ileostomy appliance was changed yesterday 03/08/2018 by Alexandria GONZALEZ. Patient noted with a small amount of dried brown effluent to wafer at 3 o'clock. Upon further inspection, noted small leak at 3 o'clock. Patient was transferred from chair to bed with minimal assistance from magazine writer. ~25 ml of Liquid green/ brown effluent was drained from pouch. Ostomy appliance was removed. Peristomal skin was cleansed with warm water and patted dry. Cavilon skin barrier film was applied to peristomal skin and let dry. Applied Alicia seal built up in in abdominal crease and umbilicus. Applied 1 3/4 two piece ostomy appliance in place with adaptor.Rn Operating Room held appliance in place for 60 seconds for better adherence to skin. Patient tolerated procedure well.
[2018-03-09] MEDS: Acetaminophen 325 MG Tablet PO PRN ×2 (16:15→21:52)
[2018-03-10] MEDS: KCL 20 mEq/D5W/LR Inj 1,000 ML IV.CONT SCH (05:47)
[2018-03-10] MEDS: Ciprofloxacin 500 MG Tablet PO SCH (08:37)
[2018-03-10] MEDS: predniSONE 10 MG Tablet PO SCH (08:37)
--- NOTE | 2018-03-10 10:26 | P.PNWCN ---
Wound Care Nurse Consult Description: Consult for Ostomy Management of RUQ ileostomy difficulty with pouching near umbilicus per Dr Harrell Communicated with: Jerilyn Flaherty Patient RN Recommendation: Change ostomy appliance to ileostomy on right side abdomen Q3-5 days and PRN for leaks. Please do not place tape around wafer appliance to reinforce; remove and replace. Additional information: Patient seen on [address] [place] [address] for ostomy assessment, emptying of pouch, delivery of supplies for patient to be discharged with. Bowel Diversion Stoma - Bowel Stoma Right Lower Abdomen Stoma Edema: No Stoma Diameter: 1 (inch round) Stoma Appearance: Protruding (red, moist, functioning), Round Collection Device: Two-piece, Moldable Wafer Drainage Description: Soft, Brown, Green Wafer Size: 1 3/4 Moldable 45mm Radha-Stomal Skin Appearance: Intact - Additional Information Additional Information: Patient seen on [address] [place] [address] for ostomy management with difficult pouching near umbilicus. Patient's ileostomy appliance was changed yesterday 03/09/2018 by Gayle GONZALEZ. Patient noted with ~100 ml of soft green/brown effluent that was drained from pouch. Ostomy appliance was mostly intact. Supplies brought to patient room for discharge.
--- NOTE | 2018-03-10 15:35 | P.DCO ---
- Physical Therapy Order: Improve ambulation - Home Health Nursing Order: Medical education, Signs/symptoms of disease process, Wound care and dressing changes, Nursing assessment with vital signs Instructions: Change left groin dressings with dry guazes BID to TID - Certification I have seen patient Shelia Aguilera on 03/10/18. My clinical findings support the need for the requested home health care services because: She has a new Ileostomy and LLQ wound Deconditioned with increased weakness, Medication compliance is questionable, Limited ability to care for self, Need for psychosocial assistance, Impaired cognition/judgement I certify that my clinical findings support that this patient is homebound because:New Ileostomy and wound. Unable to use public transit Post-op weakness, Impaired cognitive ability/safety, Unsteady gait/balance, Unsafe to leave home unassisted, Need for psychosocial assistance, Unable to use public transportation
--- NOTE | 2018-03-10 15:45 | P.PNCS ---
Subjective Colorectal Surgery Post Op Day #: 24 Interval history: No N or V. Much better appetite and intake Objective Result Diagrams: 03/09/18 07:20 03/09/18 07:40 Objective Remarks: VS-S Abd: flat,soft,non tender. Wound clean. TID dressings Assessment and Plan - Assessment (1) Psoas abscess Code(s): K68.12 - Psoas muscle abscess Status: Resolved (2) Dehydration Code(s): E86.0 - Dehydration Status: Acute - Plan Doing well. D/C today
--- NOTE | 2018-03-31 16:41 | MD ---
cc: Aj Harrell MD, John T MD DATE OF DISCHARGE: 03/10/2018 DATE OF ADMISSION: 03/07/2018 DATE OF DISCHARGE: 03/10/2018. ADMITTING DIAGNOSES: Weakness, anorexia, weight loss. DISCHARGE DIAGNOSES: Mild dehydration, weakness, and anorexia with left lower quadrant open wound. HISTORY OF PRESENT ILLNESS: This patient underwent an extensive 02/14/2018 where she had a left-sided pelvic abscess, subcutaneous wall abscesses, and a colocutaneous fistula. The patient was admitted to the hospital several times before that with percutaneous drainages of this area without success. 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 Since that time, she had done well, went home from the hospital about 16 days prior to this admission, but over the last several days has become increasingly weak and anorexic and the family felt that she was not thriving. She was not particularly having high output from her ileostomy and therefore, was not very dehydrated. When I saw her at the hospital she was not terribly dehydrated, but had nausea, anorexia, and weakness. She was really unable to eat and she had lost a significant amount of weight since her surgery. HOSPITAL COURSE: The patient was admitted to the hospital and underwent intravenous fluid hydration and then was started on oral food. Her appetite initially was quite poor, but it has improved. She was quite weak and really deconditioned from this major surgery and the fact that she is 82 years old. She was restarted on physical therapy and her diet was advanced. She was found to have a urinary tract infection as well and this may have contributed to her demise. While she was in the hospital the enterostomal nurses saw her and looked at her ileostomy and helped her with it, as well as this left lower quadrant abdominal wound, which needed repacking constantly while in the hospital. She eventually improved to the point where we felt that she could be discharged to home again with her family taking excellent care of her. She was discharged from the hospital on 03/10/2018 in stable, but guarded condition. MD CORI Ziegler/alba , 01:58 PM , 02:06 PM
== END 2018-03-10 17:28 | disposition home health service (06) ==
LOC: NEPE 16:39 → NEDA 22:32 → N04 23:40
PROVIDERS: ADMIT Colon & Rectal Surgery; ATTEND Colon & Rectal Surgery

== ENCOUNTER 2018-05-26 10:51 | Inpatient (IN) ==
[2018-05-26] MEDS ORDERED: Chlorhexidine Gluconate 2% 1 Pack (2 Cloths) TOPICAL ONE (11:45)
[2018-05-26] MEDS ORDERED: Metoprolol Tartrate 25 MG Tablet PO ONE (11:45)
[2018-05-26] MEDS ORDERED: Sodium Chlor 0.9% Inj 500 ML IV.CONT ONE (11:45)
[2018-05-26] MEDS ORDERED: Dextrose 5%/NaCl 0.9% Inj 1,000 ML IV.SIG SCH (11:45)
[2018-05-26 12:23] LABS: Baso % (Auto) 0.6 % (0.0-2.0); Eos # (Auto) 0.1 th/mm3 (0.0-0.4); Eos % (Auto) 1.8 % (0.0-4.0); Hematocrit 38.8 % (35.0-46.0); Hemoglobin 12.7 gm/dL (11.6-15.3); Lymph # (Auto) 0.6 th/mm3 (1.0-4.8); Lymph % (Auto) 13.1 % (9.0-44.0); Mean Corpuscular HGB Conc 32.8 % (32.0-36.0); Mean Corpuscular Hemoglobin 28.9 pg (27.0-34.0); Mean Corpuscular Volume 88.1 fL (80.0-100.0); Mean Platelet Volume 7.2 fL (7.0-11.0); Mono # (Auto) 0.2 th/mm3 (0.0-0.9); Mono % (Auto) 5.3 % (0.0-8.0); Neut # (Auto) 3.7 th/mm3 (1.8-7.7); Neut % (Auto) 79.2 % (16.0-70.0); Platelet Count 246 th/mm3 (150-450); Red Blood Count 4.41 mil/mm3 (4.00-5.30); White Blood Count 4.7 th/mm3 (4.0-11.0)
[2018-05-26] MEDS ORDERED: Lidocaine PF 1% Inj 5 ML Syringe OTHER ONE (13:56)
[2018-05-26] MEDS ORDERED: Glycopyrrolate Inj 1 MG/5 ML Syringe IV.PUSH ONE (13:56)
[2018-05-26] MEDS ORDERED: Neostigmine Inj 5 MG/5 ML Syringe IV.PUSH ONE (13:56)
[2018-05-26] MEDS ORDERED: Normosol-R pH 7.4 Inj 1,000 ML IV.CONT ONE (13:56)
[2018-05-26] MEDS ORDERED: Potassium Chlor 40 mEq Premix 40 MEQ/100 ML PIGGYBACK IV.SIG PRN (15:15)
[2018-05-26] MEDS ORDERED: Potassium Chlor 20 mEq Premix 20 MEQ/100 ML PIGGYBACK IV.SIG PRN (15:15)
[2018-05-26] MEDS ORDERED: Zolpidem Tartrate 5 MG Tablet PO PRN (15:17)
[2018-05-26] MEDS ORDERED: Ketorolac Inj 30 MG/ML (IVP) Vial IV.PUSH PRN (15:17)
[2018-05-26] MEDS ORDERED: *morphine SULFATE 4 MG/ML PERIprocedure ONLY ONE ×3 (15:32→17:40)
[2018-05-26] MEDS ORDERED: *Meperidine Inj 25 MG/ML Vial PERIprocedural Use ONLY ONE (15:40)
[2018-05-26] MEDS: KCL 20 mEq/D5W/LR Inj 1,000 ML IV.CONT SCH (15:49)
[2018-05-26] MEDS ORDERED: fentaNYL Citrate Inj 100 MCG/2 ML Ampul ONE (16:23)
[2018-05-26 16:24] LABS: Eos % (Auto) 1.2 % (0.0-4.0); Hematocrit 36.2 % (35.0-46.0); Hemoglobin 11.8 gm/dL (11.6-15.3); Lymph # (Auto) 0.8 th/mm3 (1.0-4.8); Lymph % (Auto) 20.1 % (9.0-44.0); Mean Corpuscular HGB Conc 32.6 % (32.0-36.0); Mean Corpuscular Hemoglobin 28.7 pg (27.0-34.0); Mean Platelet Volume 7.2 fL (7.0-11.0); Mono # (Auto) 0.3 th/mm3 (0.0-0.9); Mono % (Auto) 6.8 % (0.0-8.0); Neut # (Auto) 2.7 th/mm3 (1.8-7.7); Neut % (Auto) 70.9 % (16.0-70.0); Platelet Count 172 th/mm3 (150-450); Red Blood Count 4.12 mil/mm3 (4.00-5.30); White Blood Count 3.8 th/mm3 (4.0-11.0)
[2018-05-26 16:48] LABS: Calcium 8.4 mg/dL (8.5-10.1); Carbon Dioxide 21.4 meq/L (21.0-32.0); Potassium 3.9 meq/L (3.5-5.1)
[2018-05-26] MEDS ORDERED: *Enalaprilat Inj 1.25 MG/ML Vial IV.PUSH ONE ×2 (17:07→17:49)
[2018-05-26] MEDS ORDERED: Glycopyrrolate 0.2 MG/ML Vial ONE (17:21)
[2018-05-26] MEDS ORDERED: Glycopyrrolate 0.2 MG/ML Vial IV.PUSH ONE (17:30)
[2018-05-26] MEDS ORDERED: Morphine Inj 30 MG/30 ML PCA.VIAL PCA PRN (17:52)
[2018-05-26] MEDS ORDERED: Naloxone Inj 0.4 MG/ML Vial IV.PUSH PRN (17:52)
[2018-05-26] MEDS ORDERED: Morphine Inj 30 MG/30 ML PCA.VIAL PCA ONE (17:55)
--- NOTE | 2018-05-26 18:16 | MP ---
cc: Aj Harrell MD DATE OF OPERATION: 05/26/2018 PREOPERATIVE DIAGNOSIS: Diverting loop ileostomy. POSTOPERATIVE DIAGNOSIS: Diverting loop ileostomy. PROCEDURE PERFORMED: Small bowel resection with closure of ileostomy. ANESTHESIA: General endotracheal. SURGEON: Aj Harrell MD MOTHER BABY RN: Norberto Landers MD ESTIMATED BLOOD LOSS: Minimal. OPERATIVE FINDINGS: This patient had a diverting loop ileostomy after a low anterior resection because of perforated diverticulitis and abscess. For this reason, closure of her ileostomy was recommended. At surgery, the small bowel loops and the ileostomy were mobilized and then a resection of the ileostomy and the bowel proximal and distal to the ileostomy was done and a functional end-to-end anastomosis was done with Ethicon JULIÁN 55 stapling device. OPERATIVE TECHNIQUE: The patient was placed on the table in supine position. After adequate general endotracheal anesthesia, the mucosa of the ileum was suture closed with a 3-0 Vicryl suture in a simple running manner. Once this was done, the abdomen was prepped and draped in the usual manner and a transverse elliptical incision was made around the ileostomy and the incision was taken down through the subcutaneous tissue to the rectus fascia. The ileum was mobilized from the fascia circumferentially and from the rectus muscle layer and eventually from the posterior rectus sheath and the peritoneal cavity was entered. The adhesions to the ileostomy were taken down with sharp dissection and electrocautery, fully freeing the ileostomy and allowing it to prolapse out of the abdominal cavity. Next, just proximal and distal to the ileostomy, the small bowel proximally was divided with an Ethicon JULIÁN 55 stapling device and distally it was divided between Tom clamps. The mesentery was clamped, cut and ligated and the specimen was removed from the table. The anastomosis was carried out along the antimesenteric borders of the bowel using the Ethicon UJLIÁN 55 stapling device and then the enterotomy was closed with a TX 60 blue staple height stapling device. The opening in the mesentery was approximated with running 3-0 Vicryl suture and hemostasis was maintained throughout with electrocautery and ligature. The small bowel was replaced in the abdominal cavity in an sealing machine operator manner. Next, the abdominal cavity was closed in layers, closing the posterior rectus sheath vertically with a running #1 PDS suture in a simple running manner and then the anterior rectus sheath was closed with #1 PDS in a simple running manner as well. The subcutaneous tissue was irrigated thoroughly with saline solution and aspirated dry. Subcutaneous tissue was approximated with interrupted 3-0 Vicryl sutures in the deeper portion and then the skin was closed with running 3-0 Vicryl subcuticular suture and a dressing was applied. Sponge, needle and instrument counts were reported as correct. Estimated blood loss was minimal. The patient tolerated the procedure well and left the operating room in good condition. MD CORI Ziegler/lisa , 05:49 PM , 05:57 PM
[2018-05-27] MEDS: KCL 20 mEq/D5W/LR Inj 1,000 ML IV.CONT SCH ×2 (04:21→13:23)
[2018-05-27 05:30] LABS: Baso % (Auto) 0.2 % (0.0-2.0); Eos % (Auto) 0.1 % (0.0-4.0); Hematocrit 38.2 % (35.0-46.0); Hemoglobin 12.6 gm/dL (11.6-15.3); Lymph # (Auto) 0.3 th/mm3 (1.0-4.8); Lymph % (Auto) 3.2 % (9.0-44.0); Mean Corpuscular HGB Conc 33.1 % (32.0-36.0); Mean Corpuscular Hemoglobin 28.8 pg (27.0-34.0); Mean Corpuscular Volume 86.9 fL (80.0-100.0); Mono # (Auto) 0.6 th/mm3 (0.0-0.9); Mono % (Auto) 5.7 % (0.0-8.0); Neut # (Auto) 9.5 th/mm3 (1.8-7.7); Neut % (Auto) 90.8 % (16.0-70.0); Platelet Count 250 th/mm3 (150-450); Red Blood Count 4.39 mil/mm3 (4.00-5.30); White Blood Count 10.5 th/mm3 (4.0-11.0)
[2018-05-27 05:38] LABS: Calcium 8.7 mg/dL (8.5-10.1); Carbon Dioxide 28.5 meq/L (21.0-32.0); Potassium 3.7 meq/L (3.5-5.1)
[2018-05-27] MEDS: predniSONE 5 MG Tablet PO SCH (09:20)
[2018-05-27] MEDS: Pantoprazole Inj 40 MG Vial IV.PUSH SCH (09:21)
--- NOTE | 2018-05-27 18:11 | P.PNCS ---
Subjective Colorectal Surgery Post Op Day #: 1 Interval history: Nausea earlier with small vomit. No BMs Objective Result Diagrams: 05/27/18 04:26 05/27/18 04:26 Objective Remarks: AbD: flat, soft,dressing dry Assessment and Plan - Plan IVs to 75 OOB FLD
[2018-05-28] MEDS: KCL 20 mEq/D5W/LR Inj 1,000 ML IV.CONT SCH ×3 (01:36→17:36)
[2018-05-28 04:45] LABS: Baso % (Auto) 0.4 % (0.0-2.0); Eos % (Auto) 0.3 % (0.0-4.0); Hematocrit 37.5 % (35.0-46.0); Hemoglobin 12.1 gm/dL (11.6-15.3); Lymph # (Auto) 0.6 th/mm3 (1.0-4.8); Lymph % (Auto) 9.5 % (9.0-44.0); Mean Corpuscular HGB Conc 32.1 % (32.0-36.0); Mean Corpuscular Hemoglobin 28.2 pg (27.0-34.0); Mean Corpuscular Volume 87.9 fL (80.0-100.0); Mean Platelet Volume 6.8 fL (7.0-11.0); Mono # (Auto) 0.6 th/mm3 (0.0-0.9); Mono % (Auto) 9.4 % (0.0-8.0); Neut % (Auto) 80.4 % (16.0-70.0); Platelet Count 214 th/mm3 (150-450); Red Blood Count 4.27 mil/mm3 (4.00-5.30); White Blood Count 6.2 th/mm3 (4.0-11.0)
[2018-05-28 05:08] LABS: Calcium 9.2 mg/dL (8.5-10.1); Carbon Dioxide 32.3 meq/L (21.0-32.0); Potassium 3.1 meq/L (3.5-5.1)
[2018-05-28] MEDS: Pantoprazole Inj 40 MG Vial IV.PUSH SCH (09:34)
[2018-05-28] MEDS: predniSONE 5 MG Tablet PO SCH (09:35)
--- NOTE | 2018-05-28 12:06 | P.PNCS ---
Subjective Colorectal Surgery Post Op Day #: 2 Interval history: No N or V. No BMs. Objective Result Diagrams: 05/28/18 03:50 05/28/18 03:50 Objective Remarks: AbD: flat, soft Assessment and Plan - Plan IVs to 50 OOB D/C IMPORT/EXPORT ADMINISTRATOR D/C tele Regular diet
[2018-05-29] MEDS: KCL 20 mEq/D5W/LR Inj 1,000 ML IV.CONT SCH (01:00)
[2018-05-29] MEDS: predniSONE 5 MG Tablet PO SCH (08:26)
[2018-05-29] MEDS: Pantoprazole Inj 40 MG Vial IV.PUSH SCH ×2 (08:26→08:30)
[2018-05-29 09:30] VITALS: BP 132/62; PULSE 69; RESP 18; TEMP 98.6; O2SAT 97
--- NOTE | 2018-06-09 23:31 | MD ---
cc: Aj Harrell MD DATE OF DISCHARGE: 05/29/2018 ADMITTING DIAGNOSIS: Diverting loop ileostomy. DISCHARGE DIAGNOSIS: Diverting loop ileostomy. OPERATIVE PROCEDURE: 05/26/2018, small bowel resection with closure of ileostomy. HISTORY OF PRESENT ILLNESS: This patient had diverting loop ileostomy after a low anterior resection because of perforated diverticulitis with an abscess. For this reason, closure of her ileostomy was recommended. At surgery, the small bowel loops and the ileostomy were mobilized. LABORATORY DATA: The pathology report on the small bowel resection showed enterocutaneous junction consistent with a stoma. HOSPITAL COURSE: The patient was admitted to the hospital and ileostomy takedown was done with small bowel resection and closure. Postoperatively, the patient did well. On first postoperative day, she was started on full liquid diet. On the second postoperative day, she was started on a regular diet. On the third postoperative day, she was discharged from the hospital in good condition. She was instructed to do no driving for 2 weeks, do no heavy lifting for 6 weeks and to call me with any problems. She was instructed to follow up with me in the office in 2 weeks' time. Aj Harrell MD JTT/sv , 04:47 PM , 04:54 PM
== END 2018-05-29 11:50 | disposition home or self-care (01) ==
LOC: HSDI 10:51 → HCPC 18:20
PROVIDERS: ADMIT Colon & Rectal Surgery; ATTEND Colon & Rectal Surgery